=== PATIENT | male | born 1950 ===

== ENCOUNTER 2018-06-15 02:55 | Inpatient (IN) | payer MEDICARE, BC ==
[2018-06-15] VITALS (76 sets, daily range): BP systolic 76–170; BP diastolic 26–97; BMI 26.6; BMI 26.5
[~2018-06-15] VITALS: Ht 177.8 cm; Wt 101.2 kg
[2018-06-15] MEDS ORDERED: LANOXIN125 MCG (04:07)
[2018-06-15] MEDS ORDERED: FLUTICASONE PRO16 GM NASAL (04:09)
[2018-06-15 04:42] LABS: BASOPHILS 0.1 % (0-2); EOSINOPHILS 0 % (0-7); HEMATOCRIT 38.9 % (42.0-54.0); HEMOGLOBIN 12.3 g/dL (13.5-17.5); IMMATURE GRANULOCYTES 0.3 % (0-5); LYMPHOCYTES 4.7 % (15-50); MCH 28.7 pg (26.0-34.0); MCHC 31.6 g/dL (31.0-37.0); MCV 90.7 fL (80.0-100.0); MEAN PLATELET VOLUME 10.9 fL (7.4-10.4); MONOCYTES 8.7 % (2-11); NEUTROPHILS 86.2 % (40-80); PLATELET COUNT 139 10x3/uL (130-400); RBC 4.29 10x6/uL (4.20-6.10); RDW 16.2 % (11.5-14.5); WBC 13.4 10x3/uL (4.8-10.8)
[2018-06-15 05:04] LABS: ALBUMIN 2.5 g/dL (3.4-5.0); ALKALINE PHOSPHATASE 146 U/L (46-116); ALT (SGPT) 46 U/L (10-68); BILIRUBIN - TOTAL 1.47 mg/dL (0.2-1.3); CALC OSMOLALITY 279 mosm/kg (275-300); CALCIUM 8.1 mg/dL (8.5-10.1); CHLORIDE - SERUM 99 mmol/L (98-107); GLUCOSE 100 mg/dL (74-106); POTASSIUM - SERUM 3.6 mmol/L (3.5-5.1); PRO BNP 1158 pg/mL (0-125); SODIUM 140 mmol/L (136-145); UREA NITROGEN 16 mg/dL (7-18); eGFR NON AFRICAN AMERICAN 79 mL/min (90-120)
[2018-06-15 06:54] LABS: T4 THYROXINE 6.3 ug/dL (4.7-13.3); THYROID STIMULATING HORMONE 1.13 uIU/mL (0.36-3.74)
--- NOTE | 2018-06-15 07:00 | NUR ---
SHIFT ASSESSMENT COMPLETED, PT CARE ASSUMED. MONITORS ON AND WORKING, VITALS STABLE. SEE FLOW SHEET FOR FURTHER DETAILS. WILL CONTINUE TO OBSERVE.
--- NOTE | 2018-06-15 09:00 | NUR ---
PT TURNED AND REPOSITIONED. MONITORS ON AND WORKING, VITALS STABLE. FAMILY AT BEDSIDE. UPDATE PROVIDED. NO SIGNS/SYMPTOMS OF PAIN OR DISTRESS NOTED AT THIS TIME, WILL CONTINUE TO OBSERVE.
[2018-06-15 09:31] LABS: % SATURATION 32 % (15-55); IRON 97 ug/dl (35-150); TOTAL IRON BIND CAPACITY 299 ug/dl (260-445); UNSAT IRON BIND CAPACITY 202 ug/dl (150-375)
[2018-06-15 09:38] LABS: APTT 31.9 SECONDS (22.8-39.4); INR 1.23 (0.85-1.17); PROTIME 14.9 SECONDS (11.6-15.0)
[2018-06-15 10:27] LABS: CKMB 2.6 U/L (0.0-3.6); CREATINE KINASE 193 UL (21-232); FERRITIN 45 ng/mL (3-244); MAGNESIUM - SERUM 1.1 mg/dL (1.8-2.4)
[2018-06-15 10:30] LABS: TROPONIN-I 0.228 ng/mL (0.000-0.060)
--- NOTE | 2018-06-15 11:00 | NUR ---
NO CHANGES, SEE FLOW SHEET FOR FURTHER DETAILS.MONITORS ON AND WORKING, WILL CONTINUE TO OBSERVE.
--- NOTE | 2018-06-15 13:00 | NUR ---
PT TURNED AND REPOSITIONED FOR COMFORT, PT WILL AROUSE TO VOISE AND WRITE NOTES, DENIES ANY COMPLAINT OF PAIN OR DISCOMFORT AT THIS TIME. FAMILY AT BEDSIDE, UPDATE PROVIDED. MONITORS ON AND WORKING, VITALS STABLE. WILL CONTINUE TO OBSERVE.
--- NOTE | 2018-06-15 15:00 | NUR ---
NO CHANGES, SEE FLOW SHEET FOR FURTHER DETAILS. MONITORS ON AND WORKING, VITALS STABLE. WILL CONTINUE TO OBSERVE.
[2018-06-15 16:51] LABS: CKMB 2.9 U/L (0.0-3.6); CREATINE KINASE 136 UL (21-232)
[2018-06-15 17:00] LABS: TROPONIN-I 0.275 ng/mL (0.000-0.060)
--- NOTE | 2018-06-15 17:00 | NUR ---
PT TURNED AND REPOSITIONED. VITALS STABLE. MONITORS ON AND WORKING. WILL CONTINUE TO OBSERVE.
--- NOTE | 2018-06-15 19:00 | NUR ---
RECEIVED PATIENT FROM DAY SHIFT RN. PATIENT INTUBATED AND SEDATED ON PROPOFOL DRIP BUT OPENS EYES TO VERBAL COMMAND. INITIAL SHIFT ASSESSMENT COMPLETED, SEE FLOWSHEET. VSS. PATIENT ON LEVOPHED DRIP. WILL MONITOR CLOSELY THROUGH OUT THE NIGHT.
--- NOTE | 2018-06-15 21:00 | NUR ---
PATIENT APPEARS TO BE RESTING COMFORTABLY. NIGHT TIME MEDS GIVEN PER MD ORDERS, SEE MAR. VSS. NO ACUTE CHANGES NOTED. WILL CTM.
[2018-06-15 22:39] LABS: CKMB 1.9 U/L (0.0-3.6); CREATINE KINASE 139 UL (21-232)
[2018-06-15 22:43] LABS: TROPONIN-I 0.196 ng/mL (0.000-0.060)
--- NOTE | 2018-06-15 23:00 | NUR ---
PATIENT RESTLESS AT TIMES, SEDATION INCREASED TO 25MCG/MIN. PATIENT MOUTHS WORDS AROUND THE ETT STATING THAT HE WANTS TO ETT OUT. HE ALSO ASK WHAT TIME IS IT? REASSESSMENT COMPLETED, SEE FLOWSHEET. WILL CTM.
[2018-06-16] VITALS (83 sets, daily range): BP systolic 83–130; BP diastolic 57–82
--- NOTE | 2018-06-16 01:00 | NUR ---
PATIENT APPEARS TO BE RESTING COMFORTABLY. NO ACUTE CHANGES NOTED. WILL CTM.
--- NOTE | 2018-06-16 03:00 | NUR ---
PATIENT AWAKE AND STILL ASKING WHAT TIME IT IS. DRIFTS IN AND OUT OF SLEEP. NO ACUTE CHANGES NOTED. VSS. WILL CTM CLOSELY.
[2018-06-16 04:19] LABS: BASOPHILS 0 % (0-2); EOSINOPHILS 0 % (0-7); HEMATOCRIT 37.6 % (42.0-54.0); HEMOGLOBIN 12.4 g/dL (13.5-17.5); IMMATURE GRANULOCYTES 1.2 % (0-5); LYMPHOCYTES 8.1 % (15-50); MCH 28.8 pg (26.0-34.0); MEAN PLATELET VOLUME 11.3 fL (7.4-10.4); MONOCYTES 11.5 % (2-11); NEUTROPHILS 79.2 % (40-80); RBC 4.31 10x6/uL (4.20-6.10); RDW 16.2 % (11.5-14.5); WBC 14.4 10x3/uL (4.8-10.8)
[2018-06-16 04:34] LABS: INR 1.39 (0.85-1.17); PROTIME 16.5 SECONDS (11.6-15.0)
[2018-06-16 04:43] LABS: ALBUMIN 2.1 g/dL (3.4-5.0); ALKALINE PHOSPHATASE 95 U/L (46-116); AMYLASE - SERUM 29 U/L (25-115); BILIRUBIN - TOTAL 0.91 mg/dL (0.2-1.3); CALCIUM 8.6 mg/dL (8.5-10.1); CARBON DIOXIDE 32.5 mmol/L (21.0-32.0); CHLORIDE - SERUM 103 mmol/L (98-107); CREATININE - SERUM 0.9 mg/dL (0.6-1.3); GLUCOSE 100 mg/dL (74-106); LIPASE 72 U/L (73-393); PHOSPHOROUS 3.2 mg/dL (2.5-4.9); POTASSIUM - SERUM 3.9 mmol/L (3.5-5.1); PRO BNP 860 pg/mL (0-125); PROTEIN - SERUM 6.1 g/dL (6.4-8.2); SODIUM 141 mmol/L (136-145); eGFR NON AFRICAN AMERICAN 89 mL/min (90-120)
[2018-06-16 04:46] LABS: ALT (SGPT) 34 U/L (10-68); CALC OSMOLALITY 284 mosm/kg (275-300); MAGNESIUM - SERUM 1.5 mg/dL (1.8-2.4); UREA NITROGEN 24 mg/dL (7-18)
--- NOTE | 2018-06-16 05:00 | NUR ---
PATIENT APPEARS TO BE RESTING COMFORTABLY. VSS.
[2018-06-16 05:42] LABS: MCV 87.2 fL (80.0-100.0); PLATELET COUNT 97 10x3/uL (130-400)
--- NOTE | 2018-06-16 07:00 | NUR ---
REPORT RECIEVE, SHIFT ASSESSMENT COMPLETE, PT IS SEDATED ON VENT, FOLLOWS COMMANDS, ALL PPP, VSS, WILL CON'T TO MONITOR
[2018-06-16 08:20] LABS: FOLATE (FOLIC ACID) - SERUM >20.0 ng/mL (>3.0)
--- NOTE | 2018-06-16 09:02 | NUR ---
FAMILY AT BEDSIDE, UPDATE GIVEN
[2018-06-16 10:29] LABS: PLATELET ESTIMATE NORMAL
--- NOTE | 2018-06-16 11:15 | NUR ---
REASSESSMENT COMPLETE, NO CHANGES NOTED, WILL CON'T TO MONITOR
--- NOTE | 2018-06-16 13:15 | NUR ---
FAMILY AT BEDSIDE, UPDATE GIVEN
--- NOTE | 2018-06-16 14:45 | MORECARE ---
CASE MANAGEMENT DISCHARGE SUMMARY PATIENT: TEE MEYERS UNIT: [id number] ADM DATE: 06/15/18 AGE: 68 : 51 SEX: M ROOM/BED: D.2307 AUTHOR: TASHA MCCABE PHYSICIAN: REFERRING PHYSICIAN: DUNG MELENDEZ MD DATE OF SERVICE: 06/16/18 Discharge Plan Patient Name: TEE MEYERS [facility] [facility] 1950 Planned Disposition: Home or Self Care Anticipated Discharge Date: Discharge Date: Expected LOS: Initial Reviewer: [email or web address] Initial Review Date: 06/15/2018 Generated: 06/16/18 3:45 pm DCPIA - Discharge Planning Initial Assessment Updated by [email or web address]: Barbara Priest on 06/16/18 2:44 pm * Is the patient Alert and Oriented? Yes * How many steps to enter\exit or inside your home? * PCP Maxim Lozada * Pharmacy [facility] * Preadmission Environment Home with Family * ADLs Independent * Equipment Oxygen * List name and contact numbers for known caregivers / representatives who currently or will assist patient after discharge: Amando Meyers son [phone] * Verbal permission to speak to the caregivers and representatives has been obtained from the patient. N/A * Community resources currently utilized None * Additional services required to return to the preadmission environment? No * Can the patient safely return to the preadmission environment? Yes * Has this patient been hospitalized within the prior 30 days at any hospital? No Patient Name: TEE MEYERS Page [phone] at 1445 All edits/amendments must be made on the electronic document DICTATION DATE: 06/16/18 144 SHOE ASSOCIATE: LAURIE 06/16/18 1444 RPT#: [id number] DC DATE: STATUS: ADM IN [facility] [address] [place] [address] END OF REPORT
--- NOTE | 2018-06-16 14:54 | MORECARE ---
CASE MANAGEMENT DISCHARGE SUMMARY PATIENT: TEE MEYERS UNIT: [id number] ADM DATE: 06/15/18 AGE: 68 : 51 SEX: M ROOM/BED: D.2307 AUTHOR: ESTELLE,DOC PHYSICIAN: REFERRING PHYSICIAN: DUNG MELENDEZ MD DATE OF SERVICE: 06/16/18 Discharge Plan Patient Name: TEE MEYERS Facility: [facility]:[place] : 1950 Planned Disposition: Home or Self Care Anticipated Discharge Date: Discharge Date: Expected LOS: Initial Reviewer: [email or web address] Initial Review Date: 06/15/2018 Generated: 06/16/18 3:54 pm Comments DCP- Discharge Planning Updated by [email or web address]: Barbara Priest on 06/16/18 1:[address] Patient Name: TEE MEYERS Admission Status: Elective Accout number: [id number] Admission Date: 06-15-2018 : 1950 Admission Diagnosis: Attending: DUNG MELENDEZ Current LOS: 1 Anticipated DC Date: Planned Disposition: Home or Self Care Primary Insurance: MEDICARE A & B Discharge Planning Comments: CM met with spouse at bedside patient is currently on ventilator. Kirstin Meyers spouse. Plans to return home with his . Denies any discharge needs at this time. CM will continue to follow and assist as needed with discharge planning / needs. Office Rep: Barbara Priest DCPIA - Discharge Planning Initial Assessment Updated by [email or web address]: Barbara Priest on 06/16/18 2:44 pm * Is the patient Alert and Oriented? Yes * How many steps to enter\exit or inside your home? * PCP Maxim Lozada * Pharmacy [facility] * Preadmission Environment Home with Family * ADLs Independent * Equipment Oxygen * List name and contact numbers for known caregivers / representatives who currently or will assist patient after discharge: Amando lugo [phone] * Verbal permission to speak to the caregivers and representatives has been obtained from the patient. N/A * Community resources currently utilized None * Additional services required to return to the preadmission environment? No * Can the patient safely return to the preadmission environment? Yes * Has this patient been hospitalized within the prior 30 days at any hospital? No Last DP export: 06/16/18 1:45 Patient Name: TEE MEYERS Page 13885 at 1454 All edits/amendments must be made on the electronic document DICTATION DATE: 06/16/181452 SIGN WIRER: LAURIE 06/16/181452 RPT#: [id number] DC DATE: STATUS: ADM IN [facility] [address] [place] [address] END OF REPORT
--- NOTE | 2018-06-16 15:00 | NUR ---
COMPLETE BATH AND LINEN CHANGE, PT TOLERATED WELL
--- NOTE | 2018-06-16 17:25 | NUR ---
FAMILY AT BEDSIDE, UPDATE GIVEN
[2018-06-17] VITALS (23 sets, daily range): BP systolic 87–113; BP diastolic 62–76
[2018-06-17 05:13] LABS: BASOPHILS 0 % (0-2); EOSINOPHILS 0.1 % (0-7); HEMATOCRIT 31.6 % (42.0-54.0); HEMOGLOBIN 10.3 g/dL (13.5-17.5); IMMATURE GRANULOCYTES 0.4 % (0-5); LYMPHOCYTES 8.8 % (15-50); MCH 28.5 pg (26.0-34.0); MCHC 32.6 g/dL (31.0-37.0); MCV 87.3 fL (80.0-100.0); MEAN PLATELET VOLUME 11.5 fL (7.4-10.4); MONOCYTES 8.6 % (2-11); NEUTROPHILS 82.1 % (40-80); PLATELET COUNT 87 10x3/uL (130-400); RBC 3.62 10x6/uL (4.20-6.10); RDW 16.8 % (11.5-14.5)
[2018-06-17 05:21] LABS: WBC 7.9 10x3/uL (4.8-10.8)
[2018-06-17 05:30] LABS: ALBUMIN 1.7 g/dL (3.4-5.0); ALKALINE PHOSPHATASE 82 U/L (46-116); BILIRUBIN - TOTAL 0.94 mg/dL (0.2-1.3); CALC OSMOLALITY 285 mosm/kg (275-300); CALCIUM 8.3 mg/dL (8.5-10.1); CARBON DIOXIDE 28.1 mmol/L (21.0-32.0); CHLORIDE - SERUM 107 mmol/L (98-107); CREATININE - SERUM 0.7 mg/dL (0.6-1.3); GLUCOSE 140 mg/dL (74-106); POTASSIUM - SERUM 3.4 mmol/L (3.5-5.1); PROTEIN - SERUM 5.5 g/dL (6.4-8.2); SODIUM 141 mmol/L (136-145); UREA NITROGEN 20 mg/dL (7-18); eGFR NON AFRICAN AMERICAN > 90 mL/min (90-120)
[2018-06-17 05:31] LABS: ALT (SGPT) 24 U/L (10-68); MAGNESIUM - SERUM 1.9 mg/dL (1.8-2.4); PHOSPHOROUS 1.9 mg/dL (2.5-4.9)
--- NOTE | 2018-06-17 09:00 | NUR ---
REPORT RECEIVED FROM OFF GOING RN. WILL RESUME CARE.
--- NOTE | 2018-06-17 09:09 | NUR ---
NUTRITION F//U FAMILY AT BEDSIDE. PT REMAINS SEDATED ON VENT. PULMOCARE @ 30 CC/HR WITH CURRENT GOAL RATE 40 CC/HR. DIPRIVAN @ 14.4 CC/HR PROVIDING 380 KCAL. PULMOCARE AT GOAL RATE WILL PROVIDE 1440 KCAL, 61 GM PROTEIN PER DAY. TOTAL 1820 KCAL, 61 GM [address] DAY[address] RD FOLLOWING
--- NOTE | 2018-06-17 10:00 | NUR ---
DR MAR AT THE PTS BEDSIDE. DR MAR ADJUSTED THE VENT TO SIMV. PT TOLERATEING WELL.
--- NOTE | 2018-06-17 10:12 | NUR ---
PT DESATING TO 86%. BILATERAL LUNGS WHEEZY. SUCTIONED THE PT WITH THICK BROWN SECREATIONS NOTED. DR MAR IN THE UNIT. DR MAR STATED THAT HE WILL PLAN TO BRONCH THE PT TODAY.
--- NOTE | 2018-06-17 10:34 | NUR ---
OGT ADVANCED ABOUT 6CM PER DR MELENDEZ. ASCULTATED AND ABOUT 10 CC OF RESIDUAL NOTED.
--- NOTE | 2018-06-17 10:45 | NUR ---
BRONCHOSCOPY CONSENT FOR SIGNED BY THE PTS . WITTNESSED BY LUCY HINES RN. CONSENT PLACED IN THE CHART.
--- NOTE | 2018-06-17 14:20 | NUR ---
VANCOMYCIN TROUGH WAS 6.5, DRAWN ON TIME WILL BUMP DOSE UP TO 1 GRAM Q8H.
--- NOTE | 2018-06-17 14:33 | NUR ---
DR MAR AT THE PTS BEDSIDE. BRONCH PREFOMRED PER DR MAR. PT TOLERATED WELL.
--- NOTE | 2018-06-17 18:42 | NUR ---
FULL BED BATH GIVEN. FULL LINEN CHAGE. PT ABLE TO FOLLOW COMMANDS. PT RELEASE FROM HIS RESTRAINTS AND HE WAS ABLE TO DO ROM WITH HIS UPPER EXTRIMITES. PT TOLERATED WELL. VSS. PT RESTRAINED. CALL LIGHT IN REACH. WILL CONT POC.
--- NOTE | 2018-06-17 19:00 | NUR ---
ASSESSMENT COMPLETED PER FLOWSHEET. PT AWAKE AND ALERT TO NAME, FOLLOW COMMANDS. DENIES SOB OR ANY DISCOMFORT AT THIS TIME. SR ON CM WITH HR AT 78, LUNG SOUNDS DIMINISHED TO LLB, UNLABORED ON 3L VIA HIGH FLOW NC. LEFT FA PIV INTACT, CLEAN AND DRY INFUSING IV FLUIDS PER ORDER. MCKEON CATH INTACT TO GRAVITY WITH YELLOW DRAINAGE. ABD INCISION DRESSING C,D,I. PPP. CALL LIGHT IN REACH. CONT TO MONITOR.
[2018-06-18] VITALS (22 sets, daily range): BP systolic 95–118; BP diastolic 60–83
--- NOTE | 2018-06-18 07:00 | NUR ---
SHIFT ASSESSMENT COMPLETED, PT CARE ASSUMED, MONITORS ON AND WORKING. VITALS STABLE. HEART RATE CONTROLLED A FIB, SEE FLOW SHEET FOR FURTHER DETAILS. WILL CONTINUE TO OBSERVE.
[2018-06-18 07:11] LABS: BASOPHILS 0.2 % (0-2); EOSINOPHILS 0.6 % (0-7); HEMATOCRIT 33.9 % (42.0-54.0); HEMOGLOBIN 10.8 g/dL (13.5-17.5); IMMATURE GRANULOCYTES 1.2 % (0-5); LYMPHOCYTES 12.7 % (15-50); MCH 28.3 pg (26.0-34.0); MCHC 31.9 g/dL (31.0-37.0); MCV 88.7 fL (80.0-100.0); MEAN PLATELET VOLUME 10.8 fL (7.4-10.4); MONOCYTES 13.7 % (2-11); NEUTROPHILS 71.6 % (40-80); PLATELET COUNT 88 10x3/uL (130-400); RBC 3.82 10x6/uL (4.20-6.10); RDW 17.2 % (11.5-14.5)
[2018-06-18 07:12] LABS: WBC 5.1 10x3/uL (4.8-10.8)
[2018-06-18 07:27] LABS: ALBUMIN 1.7 g/dL (3.4-5.0); ALKALINE PHOSPHATASE 132 U/L (46-116); BILIRUBIN - TOTAL 1.28 mg/dL (0.2-1.3); CALC OSMOLALITY 285 mosm/kg (275-300); CALCIUM 8.3 mg/dL (8.5-10.1); CHLORIDE - SERUM 108 mmol/L (98-107); GLUCOSE 137 mg/dL (74-106); MAGNESIUM - SERUM 1.9 mg/dL (1.8-2.4); PROTEIN - SERUM 5.8 g/dL (6.4-8.2); SODIUM 142 mmol/L (136-145); UREA NITROGEN 16 mg/dL (7-18)
[2018-06-18 07:30] LABS: ALT (SGPT) 49 U/L (10-68); CREATININE - SERUM 0.5 mg/dL (0.6-1.3); PHOSPHOROUS 2.7 mg/dL (2.5-4.9); eGFR NON AFRICAN AMERICAN > 90 mL/min (90-120)
--- NOTE | 2018-06-18 09:00 | NUR ---
PT TURNED AND REPOSITIONED FOR COMFORT, FAMILY AT BEDSIDE, UPDATE PROVIDED, NO SIGNS/SYMPTOMS OF PAIN OR DISCOMFORT NOTED AT THIS TIME, WILL CONTINUE TO OBSERVE.
--- NOTE | 2018-06-18 10:06 | NUR ---
NUTRITION F/U PT REMAINS SEDATED ON VENT. PULMOCARE AT CURRENT GOAL RATE 40 CC/HR. RD FOLLOWING
--- NOTE | 2018-06-18 11:00 | NUR ---
PT TURNED AND REPOSITIONED FOR COMFORT, NO CHANGES, SEE FLOW SHEET FOR FURTHER DETIALS, WILL CONTINUE TO OBSERVE.
--- NOTE | 2018-06-18 12:32 | NUR ---
RECEIVED REPORT FROM JARRETT ESCOBAR. PATIENT RESTING IN BED C CALL SEDATED ON PROPOFOL. ON VENTILATOR PER PRESCRIBED SETTINGS. VSS. CONTROLLED A-FIB. FAMILY IN ROOM. WILL CONTINUE TO MONITOR.
[2018-06-18 13:15] LABS: FUNGUS STAIN Final report (())
--- NOTE | 2018-06-18 14:18 | NUR ---
BLEEDING FROM MIDLINE SITE. DRESSING SATURATED. NURSE CHANGED DRESSING.
--- NOTE | 2018-06-18 14:53 | NUR ---
CHANGED PROPOFOL TUBING.
--- NOTE | 2018-06-18 15:29 | NUR ---
PATIENT PLACED ON CPAP MODE AT THIS TIME. BREATHING NEARLY 50 TIMES/MINUTE. PROPOFOL AT 30MCG/MIN
--- NOTE | 2018-06-18 15:45 | NUR ---
PATIENT TAKEN OFF CPAP MODE AT THIS TIME. INCREASED PROPOFOL TO 60MCG/KG/HR.
[2018-06-18 16:14] LABS: ACID FAST SMEAR Negative (()); AFB SPECIMEN PROCESSING Concentration (())
--- NOTE | 2018-06-18 17:45 | NUR ---
PATEINT RESTING IN BED C STABLE VITAL SIGNS. SEDATED ON PROPOFOL AT 60MCG. WILL CONTINUE TO MONITOR
[2018-06-19] VITALS (24 sets, daily range): BP systolic 101–158; BP diastolic 66–102
[2018-06-19 02:53] LABS: BASOPHILS 0.7 % (0-2); EOSINOPHILS 1.5 % (0-7); HEMATOCRIT 34.7 % (42.0-54.0); HEMOGLOBIN 10.9 g/dL (13.5-17.5); IMMATURE GRANULOCYTES 3.3 % (0-5); LYMPHOCYTES 17.6 % (15-50); MCH 28.2 pg (26.0-34.0); MCHC 31.4 g/dL (31.0-37.0); MCV 89.7 fL (80.0-100.0); MEAN PLATELET VOLUME 10.7 fL (7.4-10.4); MONOCYTES 22.2 % (2-11); NEUTROPHILS 54.7 % (40-80); PLATELET COUNT 98 10x3/uL (130-400); RBC 3.87 10x6/uL (4.20-6.10); RDW 17.2 % (11.5-14.5); WBC 4.6 10x3/uL (4.8-10.8)
[2018-06-19 02:57] LABS: INR 1.12 (0.85-1.17); PROTIME 13.9 SECONDS (11.6-15.0)
[2018-06-19 02:59] LABS: ALBUMIN 1.7 g/dL (3.4-5.0); ALKALINE PHOSPHATASE 159 U/L (46-116); ALT (SGPT) 65 U/L (10-68); CALC OSMOLALITY 292 mosm/kg (275-300); CALCIUM 8.2 mg/dL (8.5-10.1); CARBON DIOXIDE 27.8 mmol/L (21.0-32.0); CHLORIDE - SERUM 111 mmol/L (98-107); CREATININE - SERUM 0.5 mg/dL (0.6-1.3); GLUCOSE 152 mg/dL (74-106); POTASSIUM - SERUM 4.4 mmol/L (3.5-5.1); PROTEIN - SERUM 5.9 g/dL (6.4-8.2); SODIUM 145 mmol/L (136-145); UREA NITROGEN 14 mg/dL (7-18); VANCOMYCIN - TROUGH 16.8 ug/mL (10.0-20.0); eGFR NON AFRICAN AMERICAN > 90 mL/min (90-120)
--- NOTE | 2018-06-19 07:00 | NUR ---
SHIFT ASSESSMENT COMPLETED. PT CARE ASSUMED. MONITORS ON AND WORKING. VITALS STABLE. PT TURNED AND REPOSITIONED FOR COMFORT. NO SIGNS/SYMPTOMS OF PAIN OR DISCOMFORT NOTED. WILL CONTINUE TO OBSERVE.
--- NOTE | 2018-06-19 09:00 | NUR ---
PT TURNED AND REPOSITIONED FOR COMFORT. FAMILY AT BEDSIDE, UPDATE PROVIDED, MONITORS ON AND WORKING. WILL CONTINUE TO OBSERVE.
--- NOTE | 2018-06-19 11:00 | NUR ---
PT TURNED AND REPOSITIONED, MONITORS ON AND WORKING. SEE FLOW SHEET FOR FURTHER DETIALS, WILL CONTINUE TO OBSERVE.
--- NOTE | 2018-06-19 13:00 | NUR ---
NO CHANGES, FAMILY AT BEDSIDE, UPDATE PROVIDED, NO SIGNS/SYMPTOMS OF PAIN OR DISTRESS NOTED AT THIS TIME. WILL CONTINUE TO OBSERVE.
--- NOTE | 2018-06-19 16:00 | NUR ---
REC'D CARE OF PT. SEDATED ON VENT.
--- NOTE | 2018-06-19 16:54 | NUR ---
TO CT AND BACK FOR CT OF CHEST WITHOUT CONTRAST.
--- NOTE | 2018-06-19 18:21 | NUR ---
RESTING. SEDATED. ON VENT.
[2018-06-20] VITALS (25 sets, daily range): BP systolic 94–138; BP diastolic 43–88
[2018-06-20 03:47] LABS: BASOPHILS 0.6 % (0-2); EOSINOPHILS 1.9 % (0-7); HEMATOCRIT 34.8 % (42.0-54.0); HEMOGLOBIN 10.6 g/dL (13.5-17.5); IMMATURE GRANULOCYTES 7.5 % (0-5); LYMPHOCYTES 13.4 % (15-50); MCH 27.6 pg (26.0-34.0); MCHC 30.5 g/dL (31.0-37.0); MCV 90.6 fL (80.0-100.0); MEAN PLATELET VOLUME 11.5 fL (7.4-10.4); MONOCYTES 15.6 % (2-11); PLATELET COUNT 99 10x3/uL (130-400); RBC 3.84 10x6/uL (4.20-6.10); RDW 17.2 % (11.5-14.5)
[2018-06-20 03:50] LABS: WBC 7.9 10x3/uL (4.8-10.8)
[2018-06-20 04:00] LABS: ALBUMIN 1.5 g/dL (3.4-5.0); ALKALINE PHOSPHATASE 166 U/L (46-116); ALT (SGPT) 70 U/L (10-68); BILIRUBIN - TOTAL 0.55 mg/dL (0.2-1.3); CALC OSMOLALITY 289 mosm/kg (275-300); CALCIUM 8.5 mg/dL (8.5-10.1); CARBON DIOXIDE 29.4 mmol/L (21.0-32.0); CHLORIDE - SERUM 110 mmol/L (98-107); CREATININE - SERUM 0.8 mg/dL (0.6-1.3); GLUCOSE 126 mg/dL (74-106); POTASSIUM - SERUM 4.3 mmol/L (3.5-5.1); PROTEIN - SERUM 5.8 g/dL (6.4-8.2); SODIUM 144 mmol/L (136-145); UREA NITROGEN 16 mg/dL (7-18); eGFR NON AFRICAN AMERICAN > 90 mL/min (90-120)
--- NOTE | 2018-06-20 07:15 | NUR ---
REPORT RECIEVED, SHIFT ASSESSMENT COMPLETE, PT IS SEDATED ON VENT, AROUSES TO VOICE, ABDOMEN IS DISTENDED AND FIRM WITH HYPO BS, ALL PPP, VSS, WILL CON'T TO MONITOR
--- NOTE | 2018-06-20 09:00 | NUR ---
REPOSITIONED FOR COMFORT, WILL CON'T TO MONITOR
--- NOTE | 2018-06-20 11:06 | NUR ---
REASSESSMENT COMPLETE, NO CHANGES NOTED, UPDATE GIVEN TO OVER PHONE, VSS, WILL CON'T TO MONITOR
--- NOTE | 2018-06-20 13:00 | NUR ---
O2 SAT 85% RT INCREASED FIO2 TO 60%, O2 SAT NOW 92%
--- NOTE | 2018-06-20 15:00 | NUR ---
REASSESSMENT COMPLETE, NO CHANGES NOTED, WILL CON'T TO MONITOR
--- NOTE | 2018-06-20 17:00 | NUR ---
REPOSITIONED FOR COMFORT, WILL CON'T TO MONITOR
[2018-06-21] VITALS (23 sets, daily range): BP systolic 84–116; BP diastolic 54–81; Ht 177.8 cm; Wt 101.2 kg
[2018-06-21 04:56] LABS: BASOPHILS 0.4 % (0-2); EOSINOPHILS 1.2 % (0-7); HEMATOCRIT 32.8 % (42.0-54.0); HEMOGLOBIN 9.9 g/dL (13.5-17.5); IMMATURE GRANULOCYTES 7.5 % (0-5); LYMPHOCYTES 12.7 % (15-50); MCH 27.7 pg (26.0-34.0); MCHC 30.2 g/dL (31.0-37.0); MCV 91.6 fL (80.0-100.0); MEAN PLATELET VOLUME 10.9 fL (7.4-10.4); MONOCYTES 12.2 % (2-11); PLATELET COUNT 108 10x3/uL (130-400); RBC 3.58 10x6/uL (4.20-6.10); RDW 17.1 % (11.5-14.5); WBC 8.4 10x3/uL (4.8-10.8)
[2018-06-21 05:25] LABS: ALKALINE PHOSPHATASE 158 U/L (46-116); ALT (SGPT) 58 U/L (10-68); BILIRUBIN - TOTAL 0.69 mg/dL (0.2-1.3); CALC OSMOLALITY 296 mosm/kg (275-300); CALCIUM 8.4 mg/dL (8.5-10.1); CHLORIDE - SERUM 112 mmol/L (98-107); CREATININE - SERUM 0.7 mg/dL (0.6-1.3); GLUCOSE 139 mg/dL (74-106); MAGNESIUM - SERUM 2.4 mg/dL (1.8-2.4); POTASSIUM - SERUM 4.3 mmol/L (3.5-5.1); PROTEIN - SERUM 6.1 g/dL (6.4-8.2); SODIUM 147 mmol/L (136-145); UREA NITROGEN 20 mg/dL (7-18); eGFR NON AFRICAN AMERICAN > 90 mL/min (90-120)
--- NOTE | 2018-06-21 09:38 | NUR ---
Nutrition follow-up: Intubated, sedated with propofol Pulmocare infusing @ goal rate of 40 ml/hr Labs reviewed Wt: 194# RDN following.
--- NOTE | 2018-06-21 17:40 | NUR ---
0900- PT INC OF STOOL. BATHED AND LINENS CHANGED.
--- NOTE | 2018-06-21 17:40 | NUR ---
AIR OVERLAY MATTRESS APPLIED TO BED. PT DEJAH WELL.
--- NOTE | 2018-06-21 19:30 | NUR ---
HAL DOCUMENTED ON AUG. NEW TUBING USED. ALL IV FLUIDS/LINES VERIFIED TO BE CURRENT AND PROPERLY LABELED. ALL CHANGES WILL BE DOCUMENTED
--- NOTE | 2018-06-21 19:30 | NUR ---
REPORT RECEIVED CARE ASSUMED. INITIAL SHIFT ASSESSMENT COMPLETED SEE FLOWSHEET. PT CURRENTLY NOTED TO BE ON MECHANICAL VENTILATION SIMV MODE SETTINS AND CHANGES PER FLOWSHEET. RECEIVING DIPROVAN FOR SEDATION. CURRENTLY ON CARDIZEM AT 10MG/HR SET RATE. PT IS TOTAL CARE FOR ALL ADLS. INCONTINENT OF LARGE LOOSE NONFORMED BROWN STOOL. NOTE PT WITH DEEP TISSUE INJURY TO COCCYX AND BUTTOCKS NOT MEASURED AT THIS TIME. PT IS ON AIR OVERLAY WITH PILLOWS USED FOR SUPPORT, RELIEVE PRESSURE ELEVATE ARMS AND FLOAT HEELS. PT IS RECEIVING PULMOCARE AT 40ML/HR WHICH IS GOAL WITH NO FLUSHES PER PUMP. PLACEMENT VERIFIED PER AIR BOLUS HEARD OVER STOMACH AND RESIDUAL CHECKED AT 10MLS, REPLACED AND FLUSED PER PROTOCOL. PT IS BEING MONITORED PER STANDARD ICU PROTOCOL WITH ALL ALARMS SET, VERIFIED AND AUDIBLE AT NURSES STATION. BED IN LOW POSITION AND PT IS VISIBLE FROM NURSES STATION.
--- NOTE | 2018-06-21 23:00 | NUR ---
SHIFT REASSESSMENT COMPLETED SEE FLOWSHEET. NO SIGNIFICANT CHANGES MADE. PT TOLERATING VENT WELL. HAS HAD SOME THICK CLEAR ORAL SECRETIONS AND SOME THICK YELLOW INLINE SECRETIONS WITH SUCTIONING AND ORAL CARE PERFORMED Q2H AND PRN.
--- NOTE | 2018-06-21 23:45 | NUR ---
NEW BAG OF TUBE FEEDING HUNG DATED AND LABELED
[2018-06-22] VITALS (24 sets, daily range): BP systolic 101–138; BP diastolic 64–84
--- NOTE | 2018-06-22 01:00 | NUR ---
PT CONTINUES TO BE MONITORED PER STANDARD ICU PROTOCOL VSS
--- NOTE | 2018-06-22 03:00 | NUR ---
SHIFT REASSESSMENT COMPLETED SEE FLOWSHEET NO SIGNIFICANT CHANGES NOTED
[2018-06-22 04:15] LABS: BASOPHILS 0.5 % (0-2); EOSINOPHILS 2.8 % (0-7); HEMATOCRIT 31.6 % (42.0-54.0); HEMOGLOBIN 9.5 g/dL (13.5-17.5); LYMPHOCYTES 16.2 % (15-50); MCH 27.6 pg (26.0-34.0); MCHC 30.1 g/dL (31.0-37.0); MCV 91.9 fL (80.0-100.0); MEAN PLATELET VOLUME 11.1 fL (7.4-10.4); MONOCYTES 11.9 % (2-11); NEUTROPHILS 59.6 % (40-80); PLATELET COUNT 117 10x3/uL (130-400); RBC 3.44 10x6/uL (4.20-6.10); RDW 17.6 % (11.5-14.5)
--- NOTE | 2018-06-22 04:30 | NUR ---
I&O COMPLETED AND CHARTED
[2018-06-22 04:38] LABS: ALBUMIN 2.3 g/dL (3.4-5.0); ALKALINE PHOSPHATASE 162 U/L (46-116); ALT (SGPT) 51 U/L (10-68); BILIRUBIN - TOTAL 0.61 mg/dL (0.2-1.3); CALC OSMOLALITY 302 mosm/kg (275-300); CALCIUM 8.8 mg/dL (8.5-10.1); CHLORIDE - SERUM 115 mmol/L (98-107); CREATININE - SERUM 0.6 mg/dL (0.6-1.3); GLUCOSE 121 mg/dL (74-106); MAGNESIUM - SERUM 2.4 mg/dL (1.8-2.4); POTASSIUM - SERUM 4.3 mmol/L (3.5-5.1); PROTEIN - SERUM 6.3 g/dL (6.4-8.2); SODIUM 150 mmol/L (136-145); UREA NITROGEN 25 mg/dL (7-18); eGFR NON AFRICAN AMERICAN > 90 mL/min (90-120)
--- NOTE | 2018-06-22 07:30 | NUR ---
SEDATED ON VENT BILATERAL LUNGS SOUNDS EQUAL. ETT SECURE. OG CHECKED FOR PLACEMENT PER AIR BOLOUS DOWN ETT. INFUSING WITH PULMOCARE AT 40 ML HOUR. MCKEON CATH PATENT. RIJ TRILYSIS INFUSING WITH CARDIZEM AT 10N MG HOUR. DIPRIVAN AT 46 MCG/KG/MIN, D5NS AT 75 ML HOUR. DRESSING SECURE. PURPLE BRUISING LIKE NOTED ON COCCYX BUTTOCK AREA. MONITOR ATRIAL FIB VERY IRREGULAR. WEANING OXYGEN ON VENT PER R.T.
--- NOTE | 2018-06-22 09:30 | NUR ---
REPOSITIONED. TOLERATES WELL. SEDATION OFF A FEW MINUTES RESP RATE INCREASED INTO UPPER 20'S, PULSE OX DROPPED BELOW 90, COUGHING AGAIN VENT. NO SECRETIONS WHEN SUCTIONED. SEDATED INCREASED BACK TO 45 MCG/KG/MIN.
--- NOTE | 2018-06-22 11:30 | NUR ---
REPOSITIONED. SUCTINED. NO DISTRESS.
--- NOTE | 2018-06-22 13:30 | NUR ---
REPOSITIONED. RESTING COMFORTABLY ON DIPIRVAN. MONITOR CONTINUES IN ATRIAL FIB. D5NS TURNED DOWN TO 10 ML HOUR DIPIRIVAN AT 45 MCG/KG/MIN. DR. RUIZ HERE NEW ORDERS RECEIVED
--- NOTE | 2018-06-22 15:30 | NUR ---
REPOSITIONED. RESTING COMFORTABLY ON DIPIRVAN. FAMILY HAVE CALLED AND UPDATE GIVEN. OG INFUSING WITH PULMOCARE AT 40 ML HOUR NO RESIDUAL HOUR. RIGHT UPPER ARM MIDLINE INFUSING WITH DIPIRVAN AT 45 MCG/KG/MIN. D5NS AT 10 ML HOUR, CARDIZEM GTT AT 10 MG HOUR. MCKEON CATH PATENT WITH GOOD URINE OUTPUT THIS SHIFT. SUCTION ETT WITH MOD AMOUNT THICK RAMOS SECRETIONS RARELY. MONITOR ATRIAL FIB VERY IRREGULAR. AIR OVERLAY ON BED.
--- NOTE | 2018-06-22 17:30 | NUR ---
REPOSITIONED. NO DISTRESS. NO CHANGES IN GTTS
--- NOTE | 2018-06-22 18:51 | NUR ---
NO CHANGES RESTING COMFORTABLY.
[2018-06-23] VITALS (24 sets, daily range): BP systolic 98–133; BP diastolic 63–97
[2018-06-23 03:59] LABS: BASOPHILS 0.5 % (0-2); EOSINOPHILS 2.2 % (0-7); HEMATOCRIT 32.5 % (42.0-54.0); HEMOGLOBIN 9.9 g/dL (13.5-17.5); IMMATURE GRANULOCYTES 6.2 % (0-5); LYMPHOCYTES 14.7 % (15-50); MCHC 30.5 g/dL (31.0-37.0); MCV 91.8 fL (80.0-100.0); MEAN PLATELET VOLUME 11.5 fL (7.4-10.4); NEUTROPHILS 62.4 % (40-80); PLATELET COUNT 132 10x3/uL (130-400); RBC 3.54 10x6/uL (4.20-6.10); RDW 17.4 % (11.5-14.5); WBC 6.3 10x3/uL (4.8-10.8)
[2018-06-23 04:29] LABS: ALBUMIN 2.2 g/dL (3.4-5.0); ALKALINE PHOSPHATASE 184 U/L (46-116); ALT (SGPT) 62 U/L (10-68); BILIRUBIN - TOTAL 0.72 mg/dL (0.2-1.3); CALC OSMOLALITY 301 mosm/kg (275-300); CALCIUM 8.7 mg/dL (8.5-10.1); CARBON DIOXIDE 32.3 mmol/L (21.0-32.0); CHLORIDE - SERUM 114 mmol/L (98-107); CREATININE - SERUM 0.6 mg/dL (0.6-1.3); GLUCOSE 115 mg/dL (74-106); MAGNESIUM - SERUM 2.4 mg/dL (1.8-2.4); POTASSIUM - SERUM 4.5 mmol/L (3.5-5.1); PROTEIN - SERUM 6.2 g/dL (6.4-8.2); SODIUM 149 mmol/L (136-145); UREA NITROGEN 26 mg/dL (7-18); eGFR NON AFRICAN AMERICAN > 90 mL/min (90-120)
--- NOTE | 2018-06-23 07:00 | NUR ---
BEDSIDE SHIFT REPORT RECEIVED AT THIS TIME. PT RESTING COMFORTABLY IN BED. SHIFT ASSESSMENT COMPLETE PER FLOWSHEET. VSS, WILL MONITOR CLOSELY.
--- NOTE | 2018-06-23 08:30 | NUR ---
PATIENT FAMILY PRESENT AT THE BEDSIDE. UPDATE GIVEN. VSS, WILL CONTINUE CLOSE ICU MONITORING.
--- NOTE | 2018-06-23 10:00 | NUR ---
PATIENT TURNED AND REPOSITIONED AT THIS TIME. ORAL CARE PROVIDED.
--- NOTE | 2018-06-23 11:00 | NUR ---
REASSESSMENT COMPLETE AT THIS TIME. NO ACUTE CHANGES AT THIS TIME.
--- NOTE | 2018-06-23 11:13 | NUR ---
Nutrition follow-up: NPO OGT with Pulmocare @ 40 ml/hr Labs reivewed +BM Tolerated TF at this time RDN following.
--- NOTE | 2018-06-23 12:24 | NUR ---
PATIENT RESTING COMFORTABLY AT THIS TIME. NO PAIN OR S/S OF DISTRESS NOTED. PER DR RUIZ, IV FLUID CHANGED TO D5W AND PIGGYBACKS CHANGED WELL. TUBE FEED FLUSH WAS CHANGED TO 100 CC Q2H. VSS, WILL CONTINUE TO MONITOR CLOSELY.
--- NOTE | 2018-06-23 15:00 | NUR ---
REASSESSMENT COMPLETE PER FLOWSHEET. NO ACUTE CHANGES NOTED AT THIS TIME. VSS, WILL CONTINUE TO MONITOR CLOSELY.
--- NOTE | 2018-06-23 17:15 | NUR ---
PT MIDLINE DRESSING CHANGED AT THIS TIME PER HOSPITAL POLICY. PT VSS, WILL CONTINUE TO MONITOR CLOSELY.
--- NOTE | 2018-06-23 18:00 | NUR ---
PROPOFOL BOTTLE AND TUBING CHANGED PER HOSPITAL POLICY AT THIS TIME. NO ACUTE CHANGES NOTED. VSS, WILL CONTINUE TO MONITOR CLOSELY.
[2018-06-24] VITALS (22 sets, daily range): BP systolic 110–169; BP diastolic 69–98
[2018-06-24 04:02] LABS: BASOPHILS 0.3 % (0-2); EOSINOPHILS 1.3 % (0-7); HEMOGLOBIN 10.8 g/dL (13.5-17.5); IMMATURE GRANULOCYTES 4.6 % (0-5); LYMPHOCYTES 15.6 % (15-50); MCH 28.7 pg (26.0-34.0); MCHC 31.8 g/dL (31.0-37.0); MCV 90.4 fL (80.0-100.0); MEAN PLATELET VOLUME 10.2 fL (7.4-10.4); MONOCYTES 11.7 % (2-11); NEUTROPHILS 66.5 % (40-80); PLATELET COUNT 135 10x3/uL (130-400); RBC 3.76 10x6/uL (4.20-6.10); RDW 17.4 % (11.5-14.5); WBC 6.9 10x3/uL (4.8-10.8)
[2018-06-24 04:18] LABS: ALBUMIN 2.5 g/dL (3.4-5.0); ALKALINE PHOSPHATASE 197 U/L (46-116); ALT (SGPT) 61 U/L (10-68); BILIRUBIN - TOTAL 0.86 mg/dL (0.2-1.3); CALC OSMOLALITY 292 mosm/kg (275-300); CALCIUM 8.7 mg/dL (8.5-10.1); CARBON DIOXIDE 29.9 mmol/L (21.0-32.0); CHLORIDE - SERUM 107 mmol/L (98-107); CREATININE - SERUM 0.6 mg/dL (0.6-1.3); GLUCOSE 118 mg/dL (74-106); MAGNESIUM - SERUM 2.4 mg/dL (1.8-2.4); POTASSIUM - SERUM 4.6 mmol/L (3.5-5.1); PROTEIN - SERUM 6.7 g/dL (6.4-8.2); SODIUM 143 mmol/L (136-145); UREA NITROGEN 31 mg/dL (7-18); eGFR NON AFRICAN AMERICAN > 90 mL/min (90-120)
--- NOTE | 2018-06-24 07:00 | NUR ---
BEDSIDE SHIFT REPORT RECEIVED AT THIS TIME. SHIFT ASSESSMENT COMPLETE PER FLOWSHEET. PT RESTING COMFORTABLY AT THIS TIME. VSS, WILL MONITOR CLOSELY.
--- NOTE | 2018-06-24 09:00 | NUR ---
PATIENT TURNED AND REPOSITIONED AT THIS TIME. PATIENT TOLERATED WELL. PT OPENS EYES NOW. DOES NOT FOLLOW COMMANDS BUT IT STILL ON PROPOFOL. PT FAMILY PRESENT AT THE BEDSIDE. UPDATE GIVEN. VSS, WILL CONTINUE TO MONITOR CLOSELY.
--- NOTE | 2018-06-24 10:30 | NUR ---
PATIENT HAD LARGE, INCONTINENT STOOL AT THIS TIME. PT CLEANED, FULL LINEN CHANGE DONE, AND PATIENT TURNED FOR COMFORT. SEDATION VACATION PERFORMED AND PATIENT WAS ABLE TO OPEN EYES AND SQUEEZED HANDS. PATIENT NOW BACK ON SEDATION. VSS, WILL MONITOR CLOSELY.
--- NOTE | 2018-06-24 11:00 | NUR ---
REASSESSMENT COMPLETE PER FLOWSHEET. NO ACUTE CHANGES NOTED AT THIS TIME. VSS, WILL CONTINUE TO MONITOR CLOSELY.
--- NOTE | 2018-06-24 12:45 | NUR ---
PATIENT FAMILY PRESENT AT THE BEDSIDE. UPDATE GIVEN. VSS, WILL CONTINUE TO MONITOR CLOSELY.
[2018-06-24 14:12] LABS: FUNGUS CULTURE RESULT 1 Candida tropicalis (())
--- NOTE | 2018-06-24 14:56 | CN ---
PATIENT NAME:TEE CAST MEDICAL RECORD: [id number] : 52 LOCATION:COMPAD.[id number] ADMIT DATE: 06/15/18 ACCOUNT: [id number] CONSULTING PHYSICIAN: SANDRA CORNELIUS MD REFERRING PHYSICIAN: DUNG MELENDEZ MD DATE OF CONSULTATION: 06/15/2018 CARDIOLOGY CONSULTATION DIAGNOSES: 1. Status post cardiopulmonary arrest. 2. Atrial fibrillation. 3. Pneumonia. 4. COPD. 5. Smoking history. 6. ETOH abuse. HISTORY OF PRESENT ILLNESS: This is a gentleman who was at an [facility] hospital and appears that he presented with COPD exacerbation and shortness of breath. He has a history of atrial fibrillation, he was in atrial fibrillation. He then went into respiratory distress. He had bradycardia, asystole. He had approximately 1-1/2 minutes of CPR. He resolved this with atrial fibrillation initially in the 150s to 160s. When he arrived here, he was still in atrial fibrillation in the 150s, now he is in atrial fibrillation in the 70s with rate control. He is not on any cardiac medications. His initial troponin is normal. PHYSICAL EXAMINATION: GENERAL APPEARANCE: Well-nourished, well-developed, appears stated age. Level of distress, comfortable. PSYCHIATRIC: Mental status, alert, normal affect. Orientation, oriented to time, place and person. EYES: Lids and conjunctiva, noninjected. No discharge, no pallor. ENT: Lips, teeth, gums, normal dentition. Oropharynx, no cyanosis, no pallor. NECK: Carotid arteries, bilateral normal upstroke, no bruits, no thrills. JUGULAR VEINS: No jugular venous pressure or distention. CERVICAL LYMPH NODES: Nontender, nonenlarged. THYROID: Not enlarged. Nontender. No nodules. LUNGS: Respiratory effort, unlabored. CHEST: Normal curvature. No thoracic deformity. No chest wall tenderness. Percussion, resonant. Auscultation, clear. No wheezes, no rales, no rhonchi. CARDIOVASCULAR: Precordial exam, nondisplaced. No heaves or pericardial thrills. Rate and rhythm, regular. Heart sounds, normal S1, normal S2. No S3, no gallop, no rub. Systolic murmur, not heard. Diastolic murmur, not heard. EXTREMITIES: No cyanosis, no edema. Peripheral pulses, full and equal in all extremities, except as noted. No bruits appreciated. ABDOMEN: Soft, nondistended. Normal aorta. No bruit. Nontender. No masses. Liver, nontender, no hepatomegaly. Spleen, nontender, no splenomegaly. MUSCULOSKELETAL: No joint tenderness. No joint swelling. No erythema. NEUROLOGICAL: Normal gait, normal strength, normal tone. SKIN: Warm and dry. OVERALL IMPRESSION: Most likely this is primary pulmonary arrest leading to hypoxemia and then bradycardia. At this time, the atrial fibrillation does appear to be stable. We will get an echocardiogram for overall ejection fraction and get serial troponins as well as a repeat 12-lead ECG to see if CONSULT REPORT [id number] TEE CAST there are any ST-T changes. Otherwise, supportive care for the respiratory failure and pneumonia. TRANSINT:[id number] Voice Confirmation ID: [id number] DOCUMENT ID: [id number] SANDRA CORNELIUS MD at 1456 CC: [id number] DICTATION DATE: 06/15/18921 CYTOLOGY LABORATORY MANAGER: 06/15/18 1330 ADM IN [place] [id number] [place] [address]
--- NOTE | 2018-06-24 14:56 | EC ---
PATIENT:TEE CAST DATE OF SERVICE: 06/15/18 SEX: M MEDICAL RECORD: [id number] DATE OF : [birth year] LOCATION:[facility] D.230 AGE OF PATIENT: 68 ADMISSION DATE: 06/15/18 REFERRING PHYSICIAN: INTERPRETING PHYSICIAN: SANDRA BERRY MD ECHOCARDIOGRAM REPORT ECHO CHARGES 5 ECHO LIMITED Date: 06/15/18 CLINICAL DIAGNOSIS: CARDIA ARREST/ AFIB WITH RVR/CHF ECHOCARDIOGRAPHIC MEASUREMENTS (adult normal given) AC root (d.<3.7cm) cm LV Septum d (<1.2 cm> cm Valve Excursion cm LV Septum (systole) cm Left Atria (s.<4.0cm> 6.4 cm LVPW d(<1.2cm) cm RV (d.<2.3cm) 4.7 cm LVPW (sytole) cm LV diastole(<5.6CM) 5.2 cm MV E-F(>70mm/sec) cm LV systole 3.7 cm LVOT Diameter cm MV exc.(>10mm) cm Est.ejection fraction (50-75%) % DOPPLER: LVIT cm/sec A cm/sec E cm/sec LA cm/sec RVSP 25 mmHg LVOT cm/sec AOP1/2T m/s Asc. Ao cm/sec RVOT cm/sec RA cm/sec PA cm/sec AV Gradient Peak mmHg AV Mean mmHg AV Area cm MV Gradient Peak mmHg MV Mean mmHg MV Area cm COMMENTS: Sales Advisory Manager: Clint MEDINA All Round Logger: Gwendolyn Berry TAPE# Pericardial Effusion N DATE OF SERVICE: 06/15/2018 PROCEDURE: Echocardiogram. FINDINGS: 1. Left ventricular chamber size is within normal limits. Left ventricular systolic function is normal. Overall ejection fraction estimated at 55% to 60%. 2. Left atrium is enlarged at 6 cm. Right atrium and right ventricular chamber sizes are as well mildly dilated. 3. Valvular structures have normal structure and motion. ECHOCARDIOGRAM REPORT [id number] TEE CAST 4. Doppler interrogation only reveals mild tricuspid regurgitation, no other valvular insufficiency or stenosis. Pulmonary systolic pressure is normal estimated at 25 mmHg. 5. No evidence of pericardial effusion or left ventricular thrombus. TRANSINT:[id number] Voice Confirmation ID: [id number] DOCUMENT ID: [id number] SANDRA BERRY MD at 1456 CC: [id number] DICTATION DATE: 06/16/18 0831 ZIGZAG APPLIQUER: 06/16/18 1130 ADM IN [place] [id number] [place] [address]
--- NOTE | 2018-06-24 15:00 | NUR ---
REASSESSMENT COMPLETE PER FLOWSHEET. NO ACUTE CHANGES NOTED AT THIS TIME. VSS, WILL CONTINUE TO MONITOR CLOSELY.
--- NOTE | 2018-06-24 17:00 | NUR ---
PATIENT HAD LARGE, INCONTINENT BOWEL MOVEMENT AT THIS TIME. PATIENT CLEANED AND LINEN CHANGE PERFORMED. PT TOLERATED WELL. VSS, WILL CONTINUE TO MONITOR CLOSELY.
[2018-06-25] VITALS (22 sets, daily range): BP systolic 99–142; BP diastolic 62–96
[2018-06-25 03:02] LABS: BASOPHILS 0.5 % (0-2); EOSINOPHILS 1.4 % (0-7); HEMATOCRIT 33.8 % (42.0-54.0); HEMOGLOBIN 10.5 g/dL (13.5-17.5); IMMATURE GRANULOCYTES 1.8 % (0-5); LYMPHOCYTES 15.6 % (15-50); MCH 27.9 pg (26.0-34.0); MCHC 31.1 g/dL (31.0-37.0); MCV 89.9 fL (80.0-100.0); MEAN PLATELET VOLUME 11.4 fL (7.4-10.4); MONOCYTES 13.1 % (2-11); NEUTROPHILS 67.6 % (40-80); PLATELET COUNT 149 10x3/uL (130-400); RBC 3.76 10x6/uL (4.20-6.10); RDW 17.4 % (11.5-14.5); WBC 7.4 10x3/uL (4.8-10.8)
[2018-06-25 03:11] LABS: ALBUMIN 2.2 g/dL (3.4-5.0); ALKALINE PHOSPHATASE 215 U/L (46-116); ALT (SGPT) 65 U/L (10-68); BILIRUBIN - TOTAL 0.89 mg/dL (0.2-1.3); CALC OSMOLALITY 300 mosm/kg (275-300); CALCIUM 8.8 mg/dL (8.5-10.1); CARBON DIOXIDE 32.1 mmol/L (21.0-32.0); CHLORIDE - SERUM 109 mmol/L (98-107); CREATININE - SERUM 0.6 mg/dL (0.6-1.3); GLUCOSE 117 mg/dL (74-106); MAGNESIUM - SERUM 2.3 mg/dL (1.8-2.4); POTASSIUM - SERUM 4.4 mmol/L (3.5-5.1); PROTEIN - SERUM 6.6 g/dL (6.4-8.2); SODIUM 147 mmol/L (136-145); UREA NITROGEN 34 mg/dL (7-18); eGFR NON AFRICAN AMERICAN > 90 mL/min (90-120)
--- NOTE | 2018-06-25 07:00 | NUR ---
BEDSIDE SHIFT REPORT RECEIVED AT THIS TIME. PATIENT RESTING COMFORTABLY. SHIFT ASSESSMENT COMPLETE PER FLOWSHEET. VSS, WILL MONITOR CLOSELY.
--- NOTE | 2018-06-25 07:59 | NUR ---
PT HAD LARGE, INCONTINENT, LIQUID BOWEL MOVEMENT AT THIS TIME. PATIENT CLEANED, A FULL LINEN CHANGE WAS DONE, AND PATIENT TURNED FOR COMFORT AT THIS TIME. PATIENT TOLERATED WELL. VSS, WILL CONTINUE TO MONITOR CLOSELY.
--- NOTE | 2018-06-25 08:45 | NUR ---
PATIENT FAMILY PRESENT AT THE BEDSIDE. UPDATE GIVEN AND ALL QUESTIONS ANSWERED. FAMILY DENIES ANY NEEDS AT THIS TIME. PT VSS, WILL CONTINUE TO MONIOTR CLOSELY.
--- NOTE | 2018-06-25 09:57 | NUR ---
Nutrition follow-up: Pt remains intubated, sedated Propofol @ 8.6 ml/hr Pulmocare infusing @ 40 ml/hr Wt: 229# Labs reviewed Pt not meeting estimated energy needs with current TF regimen. RDN will increase TF to goal rate of 60 ml/hr to better meet estimated energy needs. RDN following.
--- NOTE | 2018-06-25 11:00 | NUR ---
REASSESSMENT COMPLETE PER FLOWSHEET. NO ACUTE CHANGES NOTED AT THIS TIME. VSS, WILL CONTINUE TO MONITOR CLOSELY.
--- NOTE | 2018-06-25 12:00 | NUR ---
PT TURNED AND REPOSITIONED FOR COMFORT AT THIS TIME. ORAL CARE PROVIDED. VSS, WILL CONTINUE TO MONITOR CLOSELY.
--- NOTE | 2018-06-25 13:00 | NUR ---
SEDATION VACATION PERFORMED AT THIS TIME. PT WAS ABLE TO BLINK WITH PURPOSE AND FOLLOW WITH HIS EYES. PATIENT BACK ON SEDATION. FAMILY PRESENT AT THE BEDSIDE. VSS, WILL CONTINUE TO MONITOR CLOSELY.
--- NOTE | 2018-06-25 15:00 | NUR ---
REASSESSMENT COMPLETE PER FLOWSHEET. NO ACUTE CHANGES NOTED. VSS, WILL CONTINUE TO MONITOR CLOSELY.
--- NOTE | 2018-06-25 15:23 | NUR ---
PT TUBE FEEDING BAG AND TUBING CHANGED AT THIS TIME. BAG LABELED AND HAS CURRENT DATE/TIME.
--- NOTE | 2018-06-25 16:14 | NUR ---
COMPLETE BEDBATH AND LINEN CHANGE DONE AT THIS TIME. PT HAD LARGE INCONTINENT BOWEL MOVEMENT. PT CLEANED, TURNED, AND REPOSITIONED. MEPILEX DRESSING ON BOTTOM CHANGED. VSS, WILL CONTINUE TO MONITOR CLOSELY.
--- NOTE | 2018-06-25 19:30 | NUR ---
ASSESSMENT COMPLETE, PER NURSING FLOWSHEET, ORAL CARE COMPLETE, PATIENT REPOSITIONED, CONTIUE POC
--- NOTE | 2018-06-25 21:00 | NUR ---
COMPLETE LINEN CHANGE FOR INCONTINENT EPISODE, NATHANAEL CARE PERFORMED, PATIENT REPOSITIONED, WILL CONTINUE TO MONITOR
--- NOTE | 2018-06-25 23:00 | NUR ---
RE-ASSESSMENT COMPLETE, ORAL CARE PERFORMED, PATIENT REPOSITIONED, PATIENT BUE SOFT WRIST RESTRAINTS REMOVED, ROM PERFORMED, CONTINUE POC
[2018-06-26] VITALS (34 sets, daily range): BP systolic 106–151; BP diastolic 67–98
--- NOTE | 2018-06-26 01:00 | NUR ---
COMPLETE LINEN CHANGE FOR INCONTINENT BOWEL EPISODE, MCKEON CARE PERFORMED, PATIENT REPOSITIONED, NO OTHER NEEDS NOTED AT THIS TIME
--- NOTE | 2018-06-26 03:00 | NUR ---
RE-ASSESSMENT COMPLETE, ORAL CARE PROVIDED, PATIENT REPOSITIONED, VSS, WILL CONTINUE TO MONITOR
[2018-06-26 04:10] LABS: BASOPHILS 0.6 % (0-2); EOSINOPHILS 1.4 % (0-7); HEMATOCRIT 33.9 % (42.0-54.0); HEMOGLOBIN 10.4 g/dL (13.5-17.5); IMMATURE GRANULOCYTES 0.9 % (0-5); LYMPHOCYTES 12.2 % (15-50); MCHC 30.7 g/dL (31.0-37.0); MCV 91.1 fL (80.0-100.0); MEAN PLATELET VOLUME 11.1 fL (7.4-10.4); MONOCYTES 12.7 % (2-11); NEUTROPHILS 72.2 % (40-80); PLATELET COUNT 151 10x3/uL (130-400); RBC 3.72 10x6/uL (4.20-6.10); RDW 17.4 % (11.5-14.5); WBC 8.8 10x3/uL (4.8-10.8)
[2018-06-26 04:24] LABS: ALBUMIN 2.3 g/dL (3.4-5.0); ALKALINE PHOSPHATASE 218 U/L (46-116); ALT (SGPT) 65 U/L (10-68); BILIRUBIN - TOTAL 1.02 mg/dL (0.2-1.3); CALC OSMOLALITY 292 mosm/kg (275-300); CALCIUM 8.7 mg/dL (8.5-10.1); CARBON DIOXIDE 33.5 mmol/L (21.0-32.0); CHLORIDE - SERUM 106 mmol/L (98-107); CREATININE - SERUM 0.6 mg/dL (0.6-1.3); GLUCOSE 127 mg/dL (74-106); MAGNESIUM - SERUM 2.2 mg/dL (1.8-2.4); POTASSIUM - SERUM 4.3 mmol/L (3.5-5.1); PROTEIN - SERUM 6.4 g/dL (6.4-8.2); SODIUM 142 mmol/L (136-145); UREA NITROGEN 34 mg/dL (7-18); eGFR NON AFRICAN AMERICAN > 90 mL/min (90-120)
--- NOTE | 2018-06-26 05:00 | NUR ---
PATIENT REPOSITIONED, ORAL CARE PROVIDED, WELL ORAL AND INLINE SUCTION, CONTINUE POC
--- NOTE | 2018-06-26 07:00 | NUR ---
IV DRIPS CARDIZEM AND PROPOFOL VIA RIGHT AC MIDLINE DRESSING SOILED DRESSING CHANGED TO MIDLINE IV CATH WITH STERILE TECHNIQUE REPORT RECEIVED PT SLIGHTLY SEDATED WITH DIPRIVAN OPENS EYES SPONTANEOUSLY, DOES NOT FOLLOW COMMANDS CHITRA. PT INCONTINENT OF STOOL PARTIAL BED BATH GIVEN LARGE LIQUID BROWN STOOL. SQUARE CUTTER READING AFIB/FLUTTER PT ON CARDIZEM GTT. GENERALIZED EDEMA ARMS ELEVATED HEELS ELEVATED WITH PILLOWS.
--- NOTE | 2018-06-26 12:30 | NUR ---
FAMILY AT BEDSIDE UPDATE GIVEN AND QUESTIONS ANSWERED PT WINKS AT FAMILY [employer]MB[employer] NO CHANGE IN DRIPS
--- NOTE | 2018-06-26 15:30 | NUR ---
LARGE LIQUID BROWN STOOL COMPLETE BED BATH GIVEN. HAIR WASHED AND COMBED. OGT RESIDUAL CHECKED MINIMAL 10 CC TUBE FEEDING CONTINUES AT 55 CC HOUR WITH 100 CC HOUR FLUSH Q3 H
--- NOTE | 2018-06-26 18:00 | NUR ---
PT SATS TRENDING DOWN TO 90-91 HAVE BEEN 93-94 SUCTIONED SMALL AMOUNT THICK WHITE SECRETIONS OS SAT 93. VSS
--- NOTE | 2018-06-26 19:30 | NUR ---
ASSESSMENT COMPLETE, PER NURSING FLOWSHEET, PATEINT REPOSITIONED, ORAL CARE PROVIDED. VSS
--- NOTE | 2018-06-26 21:00 | NUR ---
COMPLETE LINEN CHANGE FOR INCONTINENT EPISODE, PATIENT REPOSITIONED, CONTINUE POC
--- NOTE | 2018-06-26 23:00 | NUR ---
PATIENT REPOSITIONED, ORAL CARE PROVIDED, NO OTHER NEEDS NOTED AT THIS TIME
[2018-06-27] VITALS (23 sets, daily range): BP systolic 97–139; BP diastolic 66–97
--- NOTE | 2018-06-27 01:00 | NUR ---
PATIENT REPOSITONED, MCKEON CARE PROVIDED, VSS
--- NOTE | 2018-06-27 03:00 | NUR ---
RE-ASSESSMENT COMPLETE, PATIENT REPOSITIONED, ORAL CARE PROVIDED, VSS
[2018-06-27 04:49] LABS: BASOPHILS 0.4 % (0-2); EOSINOPHILS 1.3 % (0-7); HEMOGLOBIN 10.3 g/dL (13.5-17.5); IMMATURE GRANULOCYTES 0.6 % (0-5); LYMPHOCYTES 10.9 % (15-50); MCH 28.4 pg (26.0-34.0); MCHC 31.2 g/dL (31.0-37.0); MCV 90.9 fL (80.0-100.0); NEUTROPHILS 68.8 % (40-80); PLATELET COUNT 159 10x3/uL (130-400); RBC 3.63 10x6/uL (4.20-6.10); RDW 17.5 % (11.5-14.5); WBC 7.8 10x3/uL (4.8-10.8)
[2018-06-27 04:51] LABS: CALC OSMOLALITY 289 mosm/kg (275-300); CALCIUM 8.6 mg/dL (8.5-10.1); CARBON DIOXIDE 33.6 mmol/L (21.0-32.0); CHLORIDE - SERUM 102 mmol/L (98-107); CREATININE - SERUM 0.6 mg/dL (0.6-1.3); GLUCOSE 136 mg/dL (74-106); SODIUM 141 mmol/L (136-145); UREA NITROGEN 31 mg/dL (7-18); eGFR NON AFRICAN AMERICAN > 90 mL/min (90-120)
--- NOTE | 2018-06-27 05:00 | NUR ---
COMPLETE LINEN CHANGE FOR INCONTINENT EPISODE, UNABLE TO PLACE CLEAN SHEETS SECONDARY TO CONTINUOUS OUTFLOW OF FECES. BOWEL MANAGEMENT SYSTEM PLACED. PATIENT ALSO HAS EXCORIATED SCROTUM/NATHANAEL AREA SECONDARY TO INCONTINENCE AND PRESSURE ULCER ON COCCYX/BUTTOCKS THAT BMS WILL AID IN KEEPING C/D/ SACRAL MEPILEX APPLIED TO COCCYX AND BARRIER CREAM TO NATHANAEL AREA
--- NOTE | 2018-06-27 07:00 | NUR ---
ASSESSMENT COMPLETE SEE INTERVENTIONS. PT NOTED WITH EYES OPEN APPEARS TO FOLLOW NURSE WITH EYES BUT DOES NOT FOLLOW COMMANDS, WITHDRAWS FROM PAINFUL STIMULI CHITRA. LIGHT SEDATION WITH DIPRIVAN ALSO ON 10 MG CARDIZEM GTT FOR AFIB AFLUTTER PER CORRECTIONAL SUBSTANCE ABUSE COUNSELOR. INTUBATED VSS NO DISTRESS NOTED AT THIS TIME.
--- NOTE | 2018-06-27 09:00 | NUR ---
PT REPOSITIONED FOR COMFORT
--- NOTE | 2018-06-27 10:15 | NUR ---
PTS HAD CALLED TO CHECK ON PT. RETURNED HER CALL UPDATE GIVEN. INFORMED HER OF RECTAL TUBE PLACEMENT ON SCANNING COORDINATOR DUE TO INCREASED INCONTINENCE TO KEEP STOOL OFF EXORIATED AREAS. SHE VERBALIZES UNDERSTANDING.
--- NOTE | 2018-06-27 13:00 | NUR ---
REPOSITIONED FOR COMFORT VSS WILL CONTINUE TO MONITOR NO SIGNS OF DISTRESS.
--- NOTE | 2018-06-27 15:00 | NUR ---
REASSESSMENT COMPLETE PT RECTAL TUBE LEAKED PARTIAL BED BATH GIVEN. VSS NO DISTRESS NOTED REPOSTIONED FOR COMFORT
--- NOTE | 2018-06-27 17:00 | NUR ---
IV TUBINGS AND MANIFOLD CHANGED PER PROTOCOL. VSS PT AWAKE WITH SLIGHT SEDATION
--- NOTE | 2018-06-27 19:45 | NUR ---
REPORT RECEIVED, INITIAL ASSESSMENT COMPLETE PER FLOW SHEET, PT SEDATED ON VENT OPENS EYES, NO ACUTE DISTRESS NOTED, VSS, REPOSITIONED, ORAL CARE COMPLETED, WILL CONTINUE TO ASSESS
--- NOTE | 2018-06-27 21:00 | NUR ---
PT APEARS TO BE IN NO ACUTE DISTRESS, RT AT BEDSIDE GIVING Tx, SUCTIONED, MCKEON CARE, VSS, WILL CONTINUE TO ASSESS
--- NOTE | 2018-06-27 23:00 | NUR ---
REASSESSMENT COMPLETED PER FLOW SHEET, NO ACUTE CHANGES SINCE PRIOR ASSESSMENT, REPOSITIONED, ELEVATED EXTREMITIES, VSS, WILL CONTINUE TO ASSESS
[2018-06-28] VITALS (24 sets, daily range): BP systolic 99–127; BP diastolic 66–90
--- NOTE | 2018-06-28 03:00 | NUR ---
REASSESSMENT COMPLETED PER FLOW SHEET, NO ACUTE CHANGES NOTED, REPOSITIONED, ELEVATED EXTREMITIES AND HOB, COMPLETE BED BATH AND LINEN CHANGE, MCKEON CARE COMPLETED, ORAL SUCTIONING NAD CARE, NO ACUTE DISTRESS NOTED, VSS, WILL CONTINUE TO MONITOR
[2018-06-28 04:02] LABS: BASOPHILS 0.3 % (0-2); EOSINOPHILS 0.8 % (0-7); HEMATOCRIT 31.7 % (42.0-54.0); HEMOGLOBIN 9.9 g/dL (13.5-17.5); IMMATURE GRANULOCYTES 0.3 % (0-5); LYMPHOCYTES 10.3 % (15-50); MCH 28.4 pg (26.0-34.0); MCHC 31.2 g/dL (31.0-37.0); MCV 90.8 fL (80.0-100.0); NEUTROPHILS 68.3 % (40-80); PLATELET COUNT 157 10x3/uL (130-400); RBC 3.49 10x6/uL (4.20-6.10); RDW 17.4 % (11.5-14.5); WBC 7.6 10x3/uL (4.8-10.8)
[2018-06-28 04:25] LABS: CALC OSMOLALITY 288 mosm/kg (275-300); CALCIUM 8.6 mg/dL (8.5-10.1); CARBON DIOXIDE 33.3 mmol/L (21.0-32.0); CHLORIDE - SERUM 101 mmol/L (98-107); CREATININE - SERUM 0.7 mg/dL (0.6-1.3); GLUCOSE 120 mg/dL (74-106); POTASSIUM - SERUM 3.7 mmol/L (3.5-5.1); SODIUM 141 mmol/L (136-145); UREA NITROGEN 32 mg/dL (7-18); eGFR NON AFRICAN AMERICAN > 90 mL/min (90-120)
--- NOTE | 2018-06-28 06:00 | NUR ---
PT TEMP INCREASED, REMOVED EXCESS COVERS AND PILLOWS, TEMP IN ROOM DECREASED, PLACED FAN IN ROOM FACING PT, OTHER VSS, WILL CONTINUE TO MONITOR AND NOTIFY ONCOMING NURSE
--- NOTE | 2018-06-28 08:30 | NUR ---
PTS HERE TO VISIT UPDATE GIVEN QUESTIONS ANSWERED. PT RESTING QUIETLY WITH EYES CLOSED VSS
--- NOTE | 2018-06-28 09:45 | NUR ---
FAMILY AT BEDSIDE VISITING
--- NOTE | 2018-06-28 12:30 | NUR ---
DR MAR SPEAKING WITH SPOUSE OF PTS STATUS. PT WILL NEED TRACH AND PEG WILL BE SCHEDULED AFTER HOLIDAY
--- NOTE | 2018-06-28 12:45 | NUR ---
PICC LINE NURSE BERNARD PURI RN ON UNIT ASKED HER TO CHECK MIDLINE IV ON PT DUE TO DIFFICULTY GETTING ALBUMIN TO INFUSE. PT HAS D5 GOING AT 10CC/HOUR, DIPRIVAN AT 14.4CC HOUR AND CARDIZEM GTT AT 10 CCHOUR ALL FLOWING VIA IV PUMPS WITHOUT DIFFICULTY. ALBUMIN PER GRAVITY DOES NOT FLOW. BLOOD BACKS UP INTO LINE. IV LINE FLUSHES EASILY WITH NORMAL SALINE. PT HAS EDEMA IN BILATERAL UPPER EXTREMITIES. NO WARMTH OR COOLNESS NOTED, RADIAL PULSE PALPABLE. SHE STATED AFTER LOOKING AT RIGHT MIDLINE THAT IT WAS FINE SINCE OTHER FLUIDS FLOWING WITHOUT DIFFICULTY AND NO PRESSURE ALARMS FROM IV PUMPS. BYPASS THE MANIFOLD MAY GET ALBUMIN FLOWING. PTS AT BEDSIDE FOR VISITATION.
--- NOTE | 2018-06-28 12:51 | NUR ---
Nutrition Follow Up: Chart reviewed and spoke with nursing. Noted surgery to be consulted for PEG and Trach. Pt is tolerating current TF regimen of Pulmocare @ 55 ml/hr (goal rate) with H2O flushes 100 ml Q3H. BM: 06/28/18 I>O Wt gain noted Labs reviewed Meds noted including D5W @ 10 ml/hr providing 41 kcal/d; Diprivan @ 14.4 ml/hr providing 380 kcal/d Rec continue current TF, H2O flush regimen. RD following.
--- NOTE | 2018-06-28 13:00 | NUR ---
DR MELENDEZ HERE ROUNDING
--- NOTE | 2018-06-28 15:00 | NUR ---
REASSESSMENT COMPLETED PT SEDATED WITH DIPRIVAN BUT OPENS EYES TO VERBAL STIMULI AND SPONTANEOUSLY. VSS NO DISTRESS NOTED BILATERAL UPPER EXTREMITIES EDEMATOUS ELEVATED WITH PILLOWS FOR COMFORT AND FOR SWELLING. PT ST PER INCUBATOR MACHINE OPERATOR NO ATRIAL FIB OR FLUTTER AT THIS TIME. HEELS ELEVATED OFF BED BRIDGED WITH PILLOWS.
--- NOTE | 2018-06-28 17:00 | NUR ---
PTS HERE FOR VISITATION ADDITIONAL FAMILY/FRIENDS HERE FOR VISITATION.
--- NOTE | 2018-06-28 19:00 | NUR ---
WHILE GIVING BEDSIDE REPORT TUBE FEEDING PUMP ALARM SOUNDED CLOGGED. UNABLE TO FLUSH WATER OR AIR. ANOTHER OGT PLACED. CLOGGED OGT REMOVED PLACEMENT VERIFIED BY AIR BOLUS BY 2 RNS MYSELF AND UBALDO RN DR MAR ON UNIT INFORMED THAT OGT WAS CLOGGED A NEW ONE PLACED HE ORDERED XRAY FOR TUBE PLACEMENT. ONCE PLACEMENT VERIFIED PER XRAY.. RESTART PULMOCARE TUBE FEEDS AT 55 CC/HOUR WITH THE INCREASE OF AUTOFLUSH TO 25 CC/HOUR.
--- NOTE | 2018-06-28 21:00 | NUR ---
X-RAY RESULTS RECEIVED, RECOMENDATION TO RETRACT OGT BY 3-4CM, RETRACTED OGT, PLACEMENT VERIFIED BY AUSCULTATION AND RETURN OF GASTRIC RESIDUAL, CLARK FARIAS STANLEY NOTIFIED AND ASSESSED WELL, RECOMENDED TO RESTART TUBE FEED THROUGH OGT AT LOW VOLUME AND INCREASE TO ORDERED VOLUME, RESTARTED TF PULMOCARE @25ML/HR WITH 40ML/HR H2O FLUSH, PT TOLLERATING WITHOUT DISTRESS, WILL CONTINUE TO MONITOR.
[2018-06-29] VITALS (23 sets, daily range): BP systolic 89–108; BP diastolic 60–74
--- NOTE | 2018-06-29 02:30 | NUR ---
ETT CUFF LEAK, AUDIBLE GUARGALING SOUNDS WITH DECREASED PRESSURES ON VENT, RT NOTIFIED, ORAL SUCTIONED, RT REINFLATED CUFF, VSS, WILL CONTINUE TO ASSESS
[2018-06-29 04:09] LABS: CALC OSMOLALITY 286 mosm/kg (275-300); CALCIUM 8.5 mg/dL (8.5-10.1); CHLORIDE - SERUM 99 mmol/L (98-107); CREATININE - SERUM 0.7 mg/dL (0.6-1.3); GLUCOSE 110 mg/dL (74-106); POTASSIUM - SERUM 3.4 mmol/L (3.5-5.1); SODIUM 140 mmol/L (136-145); UREA NITROGEN 32 mg/dL (7-18); eGFR NON AFRICAN AMERICAN > 90 mL/min (90-120)
[2018-06-29 04:24] LABS: BASOPHILS 0.7 % (0-2); EOSINOPHILS 0.8 % (0-7); HEMATOCRIT 30.1 % (42.0-54.0); HEMOGLOBIN 9.4 g/dL (13.5-17.5); IMMATURE GRANULOCYTES 0.3 % (0-5); LYMPHOCYTES 10.6 % (15-50); MCH 28.6 pg (26.0-34.0); MCHC 31.2 g/dL (31.0-37.0); MCV 91.5 fL (80.0-100.0); MEAN PLATELET VOLUME 11.6 fL (7.4-10.4); MONOCYTES 18.1 % (2-11); NEUTROPHILS 69.5 % (40-80); PLATELET COUNT 175 10x3/uL (130-400); RBC 3.29 10x6/uL (4.20-6.10); RDW 17.4 % (11.5-14.5); WBC 7.4 10x3/uL (4.8-10.8)
--- NOTE | 2018-06-29 07:00 | NUR ---
SHIFT ASSESSMENT COMPLETED, PT CARE ASSUMED. MONITORS ON AND WORKING, VITALS STABLE. PT TURNED AND REPOSITIONED FOR COMFORT. NO SIGNS/SYMPTOMS OF PAIN OR DISTRESS AT THIS TIME. WILL CONTINUE TO OBSERVE.
--- NOTE | 2018-06-29 09:00 | NUR ---
PT TURNED AND REPOSITIONED FOR COMFORT, MONITORS ON AND WORKING, VITALS STABLE. PT CALLED, UPDATE PROVIDED. WILL CONTINUE TO OBSERVE.
--- NOTE | 2018-06-29 11:00 | NUR ---
PT TURNED AND REPOSITIONED FOR COMFORT. NO SIGNS/SYMPTOMS OF PAIN OR DISCOMFORT NOTED AT THIS TIME. VITALS STABLE. SEE FLOW SHEET FOR FURTHER DETAILS. WILL CONTINUE TO OBSERVE.
--- NOTE | 2018-06-29 11:52 | NUR ---
SPOKE WITH ABOUT TRACH AND PEG, WILL TRY TO WORK IN SCHEDULE TOMORROW. WILL OBTAIN CONSENT FOR PROCEDURE.
--- NOTE | 2018-06-29 13:00 | NUR ---
PT TURNED AND REPOSITIONED FOR COMFORT, SPOKE WITH FAMILY ABOUT POSSIBLE TRACH AND PEG PROCEDURE, CONSENT FORMS OBTAINED. MONITORS ON AND WORKING, VITALS STABLE. NO SIGNS/SYMPTOMS OF PAIN OR DISCOMFORT NOTED AT THIS TIME, WILL CONTINUE TO OBSERVE.
[2018-06-29 13:14] LABS: MAGNESIUM - SERUM 2.1 mg/dL (1.8-2.4); POTASSIUM - SERUM 4.5 mmol/L (3.5-5.1)
--- NOTE | 2018-06-29 15:00 | NUR ---
NO CHANGES, PT TURNED AND REPOSITIONED FOR COMFORT. VITALS STABLE, SEE FLOW SHEET FOR FURTHER DETIALS. WILL CONTINUE TO OBSERVE.
--- NOTE | 2018-06-29 19:00 | NUR ---
RECEIVED PATIENT FROM DAY SHIFT RN. PATIENT INTUBATED AND SEDATED. INITIAL SHIFT ASSESSMENT COMPLETED, SEE FLOWSHEET. VSS. WILL MONITOR CLOSELY THROUGH OUT THE NIGHT.
--- NOTE | 2018-06-29 21:00 | NUR ---
PM MEDS GIVEN PER MD ORDERS, SEE AUG. VSS. NO ACUTE CHANGES NOTED. WILL CTM.
--- NOTE | 2018-06-29 23:00 | NUR ---
REASSESSMENT COMPLETED, SEE FLOWSHEET. VSS. NO ACUTE CHANGES NOTED. WILL CTM.
[2018-06-30] VITALS (23 sets, daily range): BP systolic 96–115; BP diastolic 64–81
--- NOTE | 2018-06-30 01:00 | NUR ---
PATIENT APPEARS TO BE RESTING COMFORTABLY. TF TURNED OFF AT MIDNIGHT FOR PROCEDURE LATER TODAY. VSS. NO ACUTE CHANGES NOTED. WILL CTM.
--- NOTE | 2018-06-30 03:00 | NUR ---
REASSESSMENT COMPLETED, SEE FLOWSHEET. VSS. NO CHANGES NOTED. WILL CTM.
[2018-06-30 04:32] LABS: BASOPHILS 0.8 % (0-2); EOSINOPHILS 2.2 % (0-7); IMMATURE GRANULOCYTES 0.2 % (0-5); LYMPHOCYTES 12.9 % (15-50); MCH 28.2 pg (26.0-34.0); MCV 90.9 fL (80.0-100.0); MEAN PLATELET VOLUME 11.3 fL (7.4-10.4); MONOCYTES 17.3 % (2-11); NEUTROPHILS 66.6 % (40-80); PLATELET COUNT 188 10x3/uL (130-400); RBC 3.19 10x6/uL (4.20-6.10); RDW 17.2 % (11.5-14.5)
[2018-06-30 04:36] LABS: WBC 5.1 10x3/uL (4.8-10.8)
--- NOTE | 2018-06-30 05:00 | NUR ---
PATIENT APPEARS TO BE RESTING COMFORTABLY. CHG AND MCKEON WIPES USED, PATIENT TOLERATED WELL. VSS. NO ACUTE CHANGES NOTED. WILL CTM.
[2018-06-30 05:25] LABS: CALC OSMOLALITY 276 mosm/kg (275-300); CALCIUM 8.4 mg/dL (8.5-10.1); CARBON DIOXIDE 31.2 mmol/L (21.0-32.0); CHLORIDE - SERUM 98 mmol/L (98-107); CREATININE - SERUM 0.7 mg/dL (0.6-1.3); GLUCOSE 98 mg/dL (74-106); MAGNESIUM - SERUM 2.2 mg/dL (1.8-2.4); PHOSPHOROUS 4.1 mg/dL (2.5-4.9); PRO BNP 736 pg/mL (0-125); SODIUM 136 mmol/L (136-145); UREA NITROGEN 27 mg/dL (7-18); eGFR NON AFRICAN AMERICAN > 90 mL/min (90-120)
--- NOTE | 2018-06-30 07:00 | NUR ---
SHIFT ASSESSMENT COMPLETED. PT CARE ASSUMED. MONITORS ON AND WORKING, VITALS STABLE. SEE FLOW SHEET FOR FURTHER DETIALS. WILL CONTINUE TO OBSERVE.
--- NOTE | 2018-06-30 09:00 | NUR ---
PT TURNED AND REPOSITIONED FOR COMFORT. MONITORS ON AND WORKING, VITALS STABLE, NO SIGNS/SYMPTOMS OF PAIN OR DISCOMFORT AT THIS TIME. WILL CONTINUE TO OBSERVE.
[2018-06-30 10:05] LABS: INR 1.18 (0.85-1.17); PROTIME 14.4 SECONDS (11.6-15.0)
[2018-06-30 10:06] LABS: APTT 54.4 SECONDS (22.8-39.4)
--- NOTE | 2018-06-30 10:41 | NUR ---
Nutrition follow-up: Pt NPO for PEG, trach placement today Labs reviewed Wt: 234# Recommend continuing Pulmocare @ 55 ml/hr. RDN following.
--- NOTE | 2018-06-30 11:00 | NUR ---
PT TURNED AND REPOSITIONED. VITALS STABLE. SEE FLOW SHEET FOR FURTHER DETAILS. WILL CONTINUE TO OBSERVE.
--- NOTE | 2018-06-30 13:00 | NUR ---
FAMILY AT BEDSIDE, UPDATE PROVIDED, TRACH PROCEDURE SCHEDULED PER , FAMILY AWARE, CONSENTS OBTAINED. VITALS STABLE. WILL CONTINUE TO OBSERVE.
--- NOTE | 2018-06-30 15:00 | NUR ---
PT TOLERATED TRACH PROCEDURE WELL. NO SIGNS/SYMPTOMS OF PAIN OR DISCOMFORT NOTED, MONITORS ON AND WORKING. VITALS STABLE. FAMILY UPDATED. FRESH TRACH PROTOCOL SIGNS UP. WILL CONTINUE TO MONITORS.
--- NOTE | 2018-06-30 17:00 | NUR ---
FAMILY AT BEDSIDE, UPDATE PROVIDED, PT LYING IN BED SEDATED ON VENT VIA TRACH. MONITORS ON AND WORKING. VITALS STABLE, NO SIGNS/SYMPTOMS OF PAIN OR DISCOMFORT NOTED AT THIS TIME, WILL CONTINUE TO OBSERVE.
--- NOTE | 2018-06-30 19:00 | NUR ---
RECEIVED PATIENT FROM DAY SHIFT RN. PATIENT ON FRESH TRACH PROTOCOL, SEDATED. INITIAL SHIFT ASSESSMENT COMPLETED, SEE FLOWSHEET. VSS. WILL MONITOR CLOSELY THROUGH OUT THE NIGHT.
--- NOTE | 2018-06-30 21:00 | NUR ---
PM MEDS GIVEN PER MD ORDERS, SEE AUG. VSS. WILL CTM.
--- NOTE | 2018-06-30 23:00 | NUR ---
PATIENT APPEARS TO BE RESTING COMFORTABLY. VSS. NO ACUTE CHANGES NOTED. REASSESSMENT COMPLETED, SEE FLOWSHEET. WILL CTM.
[2018-07-01] VITALS (24 sets, daily range): BP systolic 98–143; BP diastolic 66–96
--- NOTE | 2018-07-01 01:00 | NUR ---
NO ACUTE CHANGES NOTED. VSS. WILL CTM.
--- NOTE | 2018-07-01 03:00 | NUR ---
REASSESSMENT COMPLETED, SEE FLOWSHEET. VSS. PATIENT APPEARS TO BE RESTING COMFORTABLY. WILL CTM.
[2018-07-01 04:11] LABS: BASOPHILS 0.8 % (0-2); EOSINOPHILS 1.4 % (0-7); HEMATOCRIT 29.7 % (42.0-54.0); HEMOGLOBIN 9.5 g/dL (13.5-17.5); IMMATURE GRANULOCYTES 0.4 % (0-5); LYMPHOCYTES 15.9 % (15-50); MCH 28.7 pg (26.0-34.0); MCV 89.7 fL (80.0-100.0); MEAN PLATELET VOLUME 10.7 fL (7.4-10.4); MONOCYTES 14.5 % (2-11); PLATELET COUNT 191 10x3/uL (130-400); RBC 3.31 10x6/uL (4.20-6.10); WBC 4.9 10x3/uL (4.8-10.8)
[2018-07-01 04:30] LABS: CALC OSMOLALITY 276 mosm/kg (275-300); CALCIUM 8.7 mg/dL (8.5-10.1); CARBON DIOXIDE 32.5 mmol/L (21.0-32.0); CHLORIDE - SERUM 97 mmol/L (98-107); CREATININE - SERUM 0.7 mg/dL (0.6-1.3); GLUCOSE 104 mg/dL (74-106); PHOSPHOROUS 4.2 mg/dL (2.5-4.9); POTASSIUM - SERUM 3.9 mmol/L (3.5-5.1); SODIUM 137 mmol/L (136-145); UREA NITROGEN 22 mg/dL (7-18); eGFR NON AFRICAN AMERICAN > 90 mL/min (90-120)
--- NOTE | 2018-07-01 05:00 | NUR ---
NO CHANGES NOTED. CLEANED PATIENT'S FACE AND NECK. SURE STEP MCKEON CATH CLEANING KIT USED. PATIENT TOLERATED WELL. WILL CTM.
--- NOTE | 2018-07-01 07:00 | NUR ---
RECEIVED REPORT FROM OFFGOING SHIFT. PATIENT RESTING IN BED SEDATED ON VENT BY TRACH. TRACH COLLAR CLEAN AND DRY. LUNG MARTEL ARE CONGESTED IN ALL LOBES. DIPRIVAN INFUSING AT 35 MCG, NS AT KVO, AND CARDIZEM AT 9MG/HR--ALL THROUGH RIGHT PICC LINE. IN A-FIB UNCONTROLLED. HR IS 105-BRIANNA. BOWEL SOUNDS PRESENT X 4. +2 OR +3 PITTING EDEMA TO ALYSA LOWER EXTREMETIES. BP AND O2 SAT STABLE. WILL CONTINUE TO MONITOR.
--- NOTE | 2018-07-01 07:40 | NUR ---
CHANGED PROPOFOL TUBING. INFUSING AT 35MCG/KG/MIN VIA RIGHT PICC LINE.
--- NOTE | 2018-07-01 08:44 | NUR ---
PATIENT RESTING IN BED C STABLE VS. CALL CHRISTY IN REACH. ASKED PATIENT WHICH [facility] SHE USES--UNABLE TO TELL ME AT THIS TIME.
--- NOTE | 2018-07-01 08:45 | NUR ---
TURNED PROPOFOL OFF SINCE PT HAS TRACHEOSTOMY NOW. HR ELEVATED TO 115 WITH DILITIAZEM INFUSING AT 10MG/HR. IF HR DOES NOT SLOW DOWN IN NEXT HOUR OR 2 NURSE WILL NOTIFY PHYSICIAN.
--- NOTE | 2018-07-01 09:29 | NUR ---
ANCEF BAG READY HANGING READY TO INFUSE FOR PEG PROCEDURE.
--- NOTE | 2018-07-01 10:01 | NUR ---
INCREASED CARDIZEM DRIP TO 15MG/HR FOR HR 130. BP 124/76.
--- NOTE | 2018-07-01 10:42 | NUR ---
OBTAINED CONSENT FROM EDGAR CAST (PATIENTS ) FOR SCHEDULED BRONCHOSCOPY TODAY BY DR. MAR.
--- NOTE | 2018-07-01 11:00 | NUR ---
PEG TUBE PLACED BY DR. AGUDELO AT THIS TIME. PROPOFOL USED FOR SEDATION
--- NOTE | 2018-07-01 11:33 | NUR ---
CHANGED RIGHT UPPER ARM MIDLINE DRESSING. VSS. SUCTIONED MUCUS PLUG FROM TRACHE.
--- NOTE | 2018-07-01 12:16 | NUR ---
FAMILY IN ROOM VISITING WITH PATIENT. PATIENT AWAKE AND ALERT. VSS. WILL CONTINUE TO MONITOR.
--- NOTE | 2018-07-01 14:50 | NUR ---
SPOKE TO DR. RAUSCH ON PHONE ABOUT ELEVATED HR. ORDERED .25MG DIG NOW AND AGAIN IN 2 HOURS.
--- NOTE | 2018-07-01 15:21 | NUR ---
RT ASSISTED WITH FULL LINEN CHANGE AND TURNING PATIENT TO LEFT SIDE.
--- NOTE | 2018-07-01 17:30 | NUR ---
OBTAINED ORDER FROM DR. AGUDELO THAT IT IS OKAY TO USE PEG TUBE. ADMINISTERED TYLENOL FOR FEVER AND SCHEDULED ROBITUSSIN.
--- NOTE | 2018-07-01 17:44 | NUR ---
SECOND DOSE OF DIGOXIN GIVEN AK DR. JOHNSON. ALSO CALLED DR. MAR ABOUT HR BECAUSE ELEVATED HR SEEMS TO BE RELATED TO ANXIETY. STATED "OKAY TO TURN PROPOFOL DRIP BACK ON".
--- NOTE | 2018-07-01 17:55 | NUR ---
RESTRATED PROPOFOL AT 45 MCG/KG/MIN
--- NOTE | 2018-07-01 19:00 | NUR ---
RECEIVED PATIENT FROM DAY SHIFT RN, INTUBATED AND SEDATED. PATIENT WITH FRESH TRACH PROTOCOL. INITIAL SHIFT ASSESSMENT COMPLETED, SEE FLOWSHEET. WILL MONITOR CLOSELY THROUGH OUT THE NIGHT.
--- NOTE | 2018-07-01 21:00 | NUR ---
PM MEDS GIVEN PER MD ORDERS, SEE AUG. VSS. NO ACUTE CHANGES NOTED. WILL CTM.
--- NOTE | 2018-07-01 23:00 | NUR ---
SHIFT REASSESSMENT COMPLETED, SEE FLOWSHEET. VSS. NO CHANGES NOTED AT THIS TIME. WILL CTM.
[2018-07-02] VITALS (23 sets, daily range): BP systolic 79–111; BP diastolic 59–86
--- NOTE | 2018-07-02 01:00 | NUR ---
PATIENT APPEARS TO BE RESTING COMFORTABLY. VSS. NO ACUTE CHANGES NOTED. TF RESTARTED EARLIER IN THE SHIFT, 2100, VIA PEG. TOLERATING FEEDINGS WELL. Q2H TURN IN EFFECT. WILL CTM.
--- NOTE | 2018-07-02 03:00 | NUR ---
SHIFT REASSESSMENT COMPLETED, SEE FLOWSHEET. PATIENT RESTING AT THIS TIME. VSS. WILL CTM.
[2018-07-02 04:45] LABS: BASOPHILS 0.3 % (0-2); EOSINOPHILS 1.3 % (0-7); HEMATOCRIT 32.7 % (42.0-54.0); HEMOGLOBIN 10.3 g/dL (13.5-17.5); IMMATURE GRANULOCYTES 0.3 % (0-5); LYMPHOCYTES 15.6 % (15-50); MCH 28.7 pg (26.0-34.0); MCHC 31.5 g/dL (31.0-37.0); MCV 91.1 fL (80.0-100.0); MEAN PLATELET VOLUME 11.1 fL (7.4-10.4); MONOCYTES 18.2 % (2-11); NEUTROPHILS 64.3 % (40-80); PLATELET COUNT 187 10x3/uL (130-400); RBC 3.59 10x6/uL (4.20-6.10); RDW 17.2 % (11.5-14.5); WBC 6.1 10x3/uL (4.8-10.8)
--- NOTE | 2018-07-02 05:00 | NUR ---
PATIENT RESTING. CHG AND SURE STEP WIPES USED THIS MORNING, TOLERATED WELL. VSS. NO ACUTE CHANGES NOTED. WILL CTM.
[2018-07-02 05:13] LABS: CALC OSMOLALITY 280 mosm/kg (275-300); CALCIUM 8.7 mg/dL (8.5-10.1); CARBON DIOXIDE 32.8 mmol/L (21.0-32.0); CHLORIDE - SERUM 98 mmol/L (98-107); CREATININE - SERUM 0.6 mg/dL (0.6-1.3); GLUCOSE 109 mg/dL (74-106); SODIUM 139 mmol/L (136-145); UREA NITROGEN 19 mg/dL (7-18); eGFR NON AFRICAN AMERICAN > 90 mL/min (90-120)
[2018-07-02 05:27] LABS: POTASSIUM - SERUM 4.3 mmol/L (3.5-5.1)
--- NOTE | 2018-07-02 10:41 | NUR ---
Nutrition follow-up: Intubated, new trach, sedated with propofol @ 28 ml/hr Pulmocare infusing @ 25 ml/hr -> goal rate of 35 ml/hr with propofol Labs reviewed Wt: 219# RDN following.
[2018-07-02 13:16] LABS: FUNGUS STAIN Final report (())
--- NOTE | 2018-07-02 13:31 | OP ---
PATIENT NAME: TEE CAST MEDICAL RECORD: [id number] :52 LOCATION:.[facility] [id number] ADMISSION DATE:06/15/18 SURGEON: ELLE AGUDELO MD DATE OF OPERATION: 07/01/2018 PREOPERATIVE DIAGNOSES: 1. Pnvlr-an-kjfbphg respiratory failure. 2. COPD with acute exacerbation. 3. Atrial fibrillation. 4. History of cardiac arrest. POSTOPERATIVE DIAGNOSES: 1. Udbsf-bh-aydgxhx respiratory failure. 2. COPD with acute exacerbation. 3. Atrial fibrillation. 4. History of cardiac arrest. PROCEDURE: PEG tube placement. SURGEON: Elle Agudelo MD REPORT OF OPERATION: An Olympus endoscope was advanced through the mouth and esophagus. Once we entered the stomach, the stomach was insufflated, an area was found on antrum of the stomach to house the catheter. A total of 5 cc of 1% lidocaine was infused into the tissues on the skin after it had been prepped and draped. A skin incision was made with an 11 blade in the left upper quadrant and an Angiocath needle was inserted through this incision into the gastric lumen. A wire was advanced through the Angiocath and this was grasped with an Endo snare. The snare and wire were pulled through the mouth and esophagus. The PEG tube was then affixed to the wire and this was pulled through the mouth and esophagus and out through the anterior abdominal wall. This rested it about 2.5 cm at the skin. We reinserted the endoscope and noted there was no sign of any active bleeding inside the gastric lumen. At this point, the insufflation was removed and the PEG tube was affixed to the skin. COMPLICATIONS: None. CONDITION: Stable. ANESTHESIA: TIVA. BLOOD LOSS: Minimal. TRANSINT:[id number] Voice Confirmation ID: [id number] DOCUMENT ID: [id number] ELLE AGUDELO MD at 1331 CC: [id number] DICTATION DATE: 07/01/18 1058 LEAD QUALITY TECHNICIAN: 07/01/18 1109 ADM IN [place] [id number]
--- NOTE | 2018-07-02 16:13 | NUR ---
0715-RECIEVECD PER FLOW SHEET-REPOSITIONED ADN NOTED INCONTINENT OF STOOL-COMPLETE AM CARE DONE-COCCYX DRG DRY AND INTACT-AFIB ON MONITOR-CARDIZEM GTT INFUSING-PEG TUBE IN PTLF-[id number] DRK BOUCHRA URINE NOTED 0800-NO CHANGES NOTED-AFIB ON MONITOR 1030-DR MAR AT [facility]-TUBE FEEDING STOPPED ADN DIPRIVAN TITRATED TO MAI 1 FOR PLANNED BEDSE [id number] CALLS FOR FOR UPDATE IN CARE AND CONSENT 1100-RETURN CALL FROM -STATED ENROUTE AND WILL SIGN CONSENT AT THAT TIME 1215-REPOSITIONED TO [place] AND DR MAR IN ROOM AND SPOKE WITH -ADDRESSED CONCERNS-MAI 1 AND DIPRIVAN AT 45 MCG 1230-RT SET UP AT BEDSIDE IN PROGRESS FOR PLANNED BRONCH-MAI 1 1300-COMPLETED AND BROUGHT TO BEDSIDE- 1430-REPOSITIONED AND DIPRIVAN DECREASED TO [id number] 30ML/H 1600DIPRIVAN AT 35MCG-MAI AT 1- AT [facility]
[2018-07-02 18:09] LABS: ACID FAST SMEAR Negative (()); AFB SPECIMEN PROCESSING Concentration (())
--- NOTE | 2018-07-02 19:00 | NUR ---
REPORT RECIEVED, SHIFT ASSESSMENT COMPLETE, PLEASE SEE FLOW SHEETS FOR DETAILS. SEDATED AND ON VENT, TRACH SECURED. PATIENT WITHDRAWS FROM PAIN, DOES NOT FOLLOW COMMANDS. LUNGS DIMINISHED WITH RHONCHI AND CRACKLES THROUGHOUT. UNCONTROLLED A-FIB ON CM, PPP. VSS ATT, BED LOW AND LOCKED, RESTRAINTS CHECKED. ORAL CARE AND TURNING PROVIDED. WILL CPOC.
--- NOTE | 2018-07-02 21:30 | NUR ---
ORAL CARE AND TURNING PROVIDED. RESTRAINTS CHECKED. VSS, BED LOW AND LOCKED, WILL CPOC.
--- NOTE | 2018-07-02 23:00 | NUR ---
REASSESSMENT COMPLETE, PLEASE SEE FLOW SHEETS FOR DETAILS. NO ACUTE CHANGES FROM PREVIOUS ASSESSMENT TO NOTE. ORAL CARE AND TURNING PROVIDED. RESTRAINTS CHECKED. VSS, BED LOW AND LOCKED. WILL CPOC.
[2018-07-03] VITALS (24 sets, daily range): BP systolic 95–138; BP diastolic 62–84
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
--- NOTE | 2018-07-03 03:00 | NUR ---
REASSESSMENT COMPLETE, PLEASE SEE FLOW SHEETS FOR DETAILS. NO ACUTE CHANGES FROM PREVIOUS ASSESSMENT TO NOTE. MCKEON CARE, ORAL CARE, AND TURNING PROVIDED. VSS ATT, BED LOW AND LOCKED, RESTRAINTS CHECKED. WILL CPOC.
[2018-07-03 04:10] LABS: BASOPHILS 0.3 % (0-2); EOSINOPHILS 1.7 % (0-7); HEMATOCRIT 31.9 % (42.0-54.0); IMMATURE GRANULOCYTES 0.6 % (0-5); LYMPHOCYTES 12.3 % (15-50); MCH 28.5 pg (26.0-34.0); MCHC 31.3 g/dL (31.0-37.0); MCV 90.9 fL (80.0-100.0); MEAN PLATELET VOLUME 10.7 fL (7.4-10.4); MONOCYTES 15.3 % (2-11); NEUTROPHILS 69.8 % (40-80); PLATELET COUNT 219 10x3/uL (130-400); RBC 3.51 10x6/uL (4.20-6.10); RDW 16.7 % (11.5-14.5); WBC 6.7 10x3/uL (4.8-10.8)
[2018-07-03 04:23] LABS: CALC OSMOLALITY 280 mosm/kg (275-300); CHLORIDE - SERUM 97 mmol/L (98-107); CREATININE - SERUM 0.7 mg/dL (0.6-1.3); GLUCOSE 145 mg/dL (74-106); SODIUM 138 mmol/L (136-145); UREA NITROGEN 18 mg/dL (7-18); eGFR NON AFRICAN AMERICAN > 90 mL/min (90-120)
--- NOTE | 2018-07-03 04:52 | NUR ---
ORAL CARE AND TURNING PROVIDED. NO DISTRESS TO NOTE. VSS, BED LOW AND LOCKED, RESTRAINTS CHECKED. WILL CPOC.
--- NOTE | 2018-07-03 07:15 | NUR ---
REC'D CARE OF PT.
--- NOTE | 2018-07-03 08:18 | NUR ---
INITIAL ASSESSMENT COMPLETED VIA FLOW SHEET.
--- NOTE | 2018-07-03 10:00 | NUR ---
REPORT GIVEN TO HAILY BRICE RN AND HE ASSUMED CARE.
--- NOTE | 2018-07-03 10:58 | NUR ---
REPORT GIVEN TO HAILY BRICE RN AND HE ASSUMED CARE.
--- NOTE | 2018-07-03 15:00 | NUR ---
NO CHAGE NOTED
--- NOTE | 2018-07-03 19:00 | NUR ---
REPORT RECIEVED, SHIFT ASSESSMENT COMPLETE, PLEASE SEE FLOW SHEETS FOR DETAILS. PATIENT NOW OPENS EYES ON OWN, FOLLOWS COMMANDS WITH NOTABLE EXTREME WEAKNESS IN ALL EXTREMETIES. DENIES PAIN WHEN ASKED. BS HYPERACTIVE X4, PASSING GAS. LUNGS WITH RHONCHI THROUGHOUT, DIMINISHED IN LOWER LOBES. IRREGULAR HR NOTED OH CM, UNCONTROLLED A-FIB NOTED. WAS SWITCHED TO PO CARDIZEM TODAY, WILL MONITOR CLOSELY. ALL OTHER VSS, BED LOW AND LOCKED, RESTRAINTS CHECKED. WILL CPOC.
--- NOTE | 2018-07-03 19:35 | NUR ---
HR JUMPED TO 150-170 BMP, DR MELENDEZ ON UNIT, GIVING PO CARDIZEM PER ORDERS, IMFORMED DR MELENDEZ ON SITUATION, HE STATED PO SHOULD WORK. ASKED IF OKAY TO START BACK IV CARDIZEM IF NOT WORKING, DR MELENDEZ WAS OKAY WITH THIS. WILL CPOC AND MONITOR CLOSELY.
--- NOTE | 2018-07-03 21:00 | NUR ---
ORAL CARE AND TURNING PROVIDED. OFFERED A BATH, THIS WAS REFUSED, WILL TRY AGAIN IN AM. DENIES ANY PAIN. VSS, BED LOW AND LOCKED, CALL LIGHT IN REACH. WILL CPOC.
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
[2018-07-04] VITALS (24 sets, daily range): BP systolic 97–153; BP diastolic 67–101
--- NOTE | 2018-07-04 03:00 | NUR ---
REASSESSMENT COMPLETE, PLEASE SEE FLOW SHEETS FOR DETAILS. NO ACUTE CHANGES FROM PREVIOUS ASSESSMENT TO NOTE. FULL BED BATH, LINEN CHANGE, MCKEON CARE PROVIDED. ORAL CARE AND TURNING PROVIDED WELL. TOLERATED WELL. CHANGED SACRAL DRESSING, STAGE 2 SKIN TEARS X3 NOTED ON BUTTOCKS, THIS WAS CLEANED WITH SOAP AND WATER, DRIED AND NEW DRESSING APPLIED. VSS ATT, BED LOW AND LOCKED, CALL LIGHT IN REACH. WILL CPOC.
[2018-07-04 04:53] LABS: BASOPHILS 0.3 % (0-2); EOSINOPHILS 1.4 % (0-7); HEMATOCRIT 29.6 % (42.0-54.0); HEMOGLOBIN 9.2 g/dL (13.5-17.5); IMMATURE GRANULOCYTES 0.9 % (0-5); LYMPHOCYTES 11.4 % (15-50); MCH 28.1 pg (26.0-34.0); MCHC 31.1 g/dL (31.0-37.0); MCV 90.5 fL (80.0-100.0); MEAN PLATELET VOLUME 10.4 fL (7.4-10.4); MONOCYTES 18.5 % (2-11); NEUTROPHILS 67.5 % (40-80); PLATELET COUNT 225 10x3/uL (130-400); RBC 3.27 10x6/uL (4.20-6.10); RDW 16.9 % (11.5-14.5); WBC 6.4 10x3/uL (4.8-10.8)
--- NOTE | 2018-07-04 05:00 | NUR ---
ORAL CARE AND TURNING PROVIDED. VSS, BED LOW AND LOCKED, CALL LIGHT IN REACH. WILL CPOC.
[2018-07-04 05:12] LABS: ALBUMIN 2.6 g/dL (3.4-5.0); ALKALINE PHOSPHATASE 195 U/L (46-116); ALT (SGPT) 37 U/L (10-68); BILIRUBIN - TOTAL 3.87 mg/dL (0.2-1.3); CALC OSMOLALITY 278 mosm/kg (275-300); CALCIUM 8.6 mg/dL (8.5-10.1); CARBON DIOXIDE 33.7 mmol/L (21.0-32.0); CHLORIDE - SERUM 97 mmol/L (98-107); CREATININE - SERUM 0.7 mg/dL (0.6-1.3); GLUCOSE 158 mg/dL (74-106); PHOSPHOROUS 2.5 mg/dL (2.5-4.9); POTASSIUM - SERUM 3.4 mmol/L (3.5-5.1); PROTEIN - SERUM 6.6 g/dL (6.4-8.2); SODIUM 137 mmol/L (136-145); UREA NITROGEN 18 mg/dL (7-18); eGFR NON AFRICAN AMERICAN > 90 mL/min (90-120)
[2018-07-04 16:04] LABS: BILIRUBIN - INDIRECT 1.2 mg/dL (0.00-1.00); BILIRUBIN - TOTAL 4.2 mg/dL (0.2-1.3)
[2018-07-05] VITALS (23 sets, daily range): BP systolic 85–140; BP diastolic 53–89
[2018-07-05 04:17] LABS: BASOPHILS 0.4 % (0-2); EOSINOPHILS 1.2 % (0-7); HEMATOCRIT 28.6 % (42.0-54.0); LYMPHOCYTES 12.5 % (15-50); MCH 28.4 pg (26.0-34.0); MCHC 31.5 g/dL (31.0-37.0); MCV 90.2 fL (80.0-100.0); MEAN PLATELET VOLUME 10.4 fL (7.4-10.4); MONOCYTES 19.5 % (2-11); NEUTROPHILS 65.4 % (40-80); PLATELET COUNT 230 10x3/uL (130-400); RBC 3.17 10x6/uL (4.20-6.10); RDW 16.9 % (11.5-14.5); WBC 5.2 10x3/uL (4.8-10.8)
[2018-07-05 04:31] LABS: CALC OSMOLALITY 275 mosm/kg (275-300); CALCIUM 8.8 mg/dL (8.5-10.1); CARBON DIOXIDE 33.3 mmol/L (21.0-32.0); CHLORIDE - SERUM 98 mmol/L (98-107); CREATININE - SERUM 0.6 mg/dL (0.6-1.3); GLUCOSE 114 mg/dL (74-106); POTASSIUM - SERUM 3.8 mmol/L (3.5-5.1); SODIUM 137 mmol/L (136-145); UREA NITROGEN 16 mg/dL (7-18); eGFR NON AFRICAN AMERICAN > 90 mL/min (90-120)
[2018-07-05 10:23] LABS: BILIRUBIN - DIRECT 2.4 mg/dL (0.00-0.30)
--- NOTE | 2018-07-05 10:33 | NUR ---
PATIENT WAS ON CPAP, WITHOUT WARNING HE DESATTED TO 69% AND BEGAN TO BECOME CYANOTIC, RT IN NEXT ROOM, GOT HIM TO BEDSIDE AND HE PLACED VENT BACK INTO SIMV AND CYCLED 100%, PATIENT PINKED BACK UP AND WAS SATTING MID 90%, THIS LASTED LESS THAN [address] KIRK PRESENT AND MADE AWARE OF SITUATION.
[2018-07-05 10:39] LABS: BILIRUBIN - INDIRECT 1.24 mg/dL (0.00-1.00); BILIRUBIN - TOTAL 3.64 mg/dL (0.2-1.3)
--- NOTE | 2018-07-05 10:41 | NUR ---
Nutrition follow-up: TF off at this time for CT scan Propofol running @ 25 ml/hr Labs reviewed Wt: 217# Pt edematous per nurging RDN following.
[2018-07-06] VITALS (23 sets, daily range): BP systolic 90–144; BP diastolic 63–98
[2018-07-06 04:57] LABS: BASOPHILS 0.4 % (0-2); EOSINOPHILS 1.6 % (0-7); HEMOGLOBIN 9.5 g/dL (13.5-17.5); IMMATURE GRANULOCYTES 1.4 % (0-5); LYMPHOCYTES 10.4 % (15-50); MCH 28.7 pg (26.0-34.0); MCHC 31.7 g/dL (31.0-37.0); MCV 90.6 fL (80.0-100.0); MEAN PLATELET VOLUME 10.4 fL (7.4-10.4); MONOCYTES 19.1 % (2-11); NEUTROPHILS 67.1 % (40-80); PLATELET COUNT 251 10x3/uL (130-400); RBC 3.31 10x6/uL (4.20-6.10); RDW 17.3 % (11.5-14.5)
[2018-07-06 05:15] LABS: WBC 6.9 10x3/uL (4.8-10.8)
[2018-07-06 05:22] LABS: ALBUMIN 3.1 g/dL (3.4-5.0); ALKALINE PHOSPHATASE 187 U/L (46-116); ALT (SGPT) 46 U/L (10-68); BILIRUBIN - TOTAL 3.36 mg/dL (0.2-1.3); CALC OSMOLALITY 273 mosm/kg (275-300); CALCIUM 8.8 mg/dL (8.5-10.1); CARBON DIOXIDE 32.5 mmol/L (21.0-32.0); CHLORIDE - SERUM 97 mmol/L (98-107); CREATININE - SERUM 0.7 mg/dL (0.6-1.3); GLUCOSE 104 mg/dL (74-106); POTASSIUM - SERUM 4.1 mmol/L (3.5-5.1); PROTEIN - SERUM 7.2 g/dL (6.4-8.2); SODIUM 136 mmol/L (136-145); UREA NITROGEN 18 mg/dL (7-18); eGFR NON AFRICAN AMERICAN > 90 mL/min (90-120)
[2018-07-06 05:29] LABS: APTT 30.2 SECONDS (22.8-39.4); INR 1.17 (0.85-1.17); PROTIME 14.4 SECONDS (11.6-15.0)
--- NOTE | 2018-07-06 07:15 | NUR ---
REPORT RECIEVED, SHIFT ASSESSMENT COMPLETE, PT IS ON VENT, 95% O2 SAT. ALL PPP, VSS, WILL CON'T TO MONITOR
--- NOTE | 2018-07-06 11:30 | NUR ---
REASSESSMENT COMPLETE PER FLOW SHEET. VSS. NO NEW CHANGES WILL CONTINUE TO MONITOR
--- NOTE | 2018-07-06 13:00 | NUR ---
RECEIVED PATIENT AT THIS TIME. PT IS SUPINE IN BED WITH PRESENT AT THE BEDSIDE. UPDATE TO GIVEN. ASSESSMENT COMPLETE AT THIS TIME. PATIENT VSS, WILL MONITOR CLOSELY.
--- NOTE | 2018-07-06 13:05 | NUR ---
REPORT GIVEN TO KERRI FARIAS STATED UNDERSTANDING. VSS. NO NEW CHANGES WILL CONTINUE TO MONITOR
--- NOTE | 2018-07-06 13:10 | NUR ---
DR RUIZ AT BEDSIDE. NO NEW CHANGES.
--- NOTE | 2018-07-06 14:40 | NUR ---
PATIENT TUBE FEEDING BAG CHANGED AT THIS TIME. BAG LABELED/DATED/INITIALED AT THIS TIME.
--- NOTE | 2018-07-06 15:00 | NUR ---
REASSESSMENT COMPELTE PER FLOWSHEET. VSS, WILL OCNTINUE TO MONITOR CLOSELY.
[2018-07-06 15:26] LABS: PROTEIN - BODY FLUID 3.9 G/DL
--- NOTE | 2018-07-06 16:25 | NUR ---
PATIENT NOW PRESENT AT THE BEDSIDE. UPDATE GIVEN. NO FURTHER QUESTIONS AT THIS TIME.
[2018-07-06 17:00] LABS: EOS BF 3 %; MACROPHAGES BF 6 %; MESOTHELIALS BF 5 %; NEUT - BF 73 %
[2018-07-07] VITALS (24 sets, daily range): BP systolic 107–136; BP diastolic 64–92
[2018-07-07 04:28] LABS: BASOPHILS 0.3 % (0-2); EOSINOPHILS 2.1 % (0-7); HEMOGLOBIN 9.7 g/dL (13.5-17.5); IMMATURE GRANULOCYTES 1.8 % (0-5); LYMPHOCYTES 14.5 % (15-50); MCH 28.5 pg (26.0-34.0); MCHC 31.3 g/dL (31.0-37.0); MCV 91.2 fL (80.0-100.0); MEAN PLATELET VOLUME 10.1 fL (7.4-10.4); MONOCYTES 14.2 % (2-11); NEUTROPHILS 67.1 % (40-80); PLATELET COUNT 217 10x3/uL (130-400); WBC 6.7 10x3/uL (4.8-10.8)
[2018-07-07 04:48] LABS: ALKALINE PHOSPHATASE 189 U/L (46-116); ALT (SGPT) 45 U/L (10-68); BILIRUBIN - TOTAL 3.46 mg/dL (0.2-1.3); CALC OSMOLALITY 282 mosm/kg (275-300); CALCIUM 8.7 mg/dL (8.5-10.1); CHLORIDE - SERUM 99 mmol/L (98-107); CREATININE - SERUM 0.7 mg/dL (0.6-1.3); GLUCOSE 126 mg/dL (74-106); SODIUM 140 mmol/L (136-145); UREA NITROGEN 18 mg/dL (7-18); eGFR NON AFRICAN AMERICAN > 90 mL/min (90-120)
[2018-07-07 04:51] LABS: POTASSIUM - SERUM 3.4 mmol/L (3.5-5.1)
--- NOTE | 2018-07-07 07:30 | NUR ---
REPORT RECIEVED, SHIFT ASSESSMENT COMPLETE, PT IS ON THE VENT, AROUSES TO VOICE, EDEMA NOTED IN ALL EXTREMETIES, ALL PPP, VSS, WILL CON'T TO MONITOR
--- NOTE | 2018-07-07 09:00 | NUR ---
COMPLETE BATH AND LINEN CHANGE,
--- NOTE | 2018-07-07 10:38 | NUR ---
Nutrition follow-up: Pt with trach, vent Pulmocare infusing @ 60 ml/hr via PEG tube Labs reviewed Wt: 215# Tolerating TF at this time. RDN following.
--- NOTE | 2018-07-07 11:42 | NUR ---
REASSESSMENT COMPLETE PER FLOW SHEET. VSS. ORAL ENDOTRACH CARE ADM. REOPSITIONED ON R SIDE. WILL CONTINUE TO MONITOR
--- NOTE | 2018-07-07 11:45 | NUR ---
REASSESSMENT COMPLETED, SEE FLOW SHEET. WILL CONTINUE TO OBSERVE.
--- NOTE | 2018-07-07 12:48 | MORECARE ---
CASE MANAGEMENT DISCHARGE SUMMARY PATIENT: TEE MEYERS UNIT: [id number] ADM DATE: 06/15/18 AGE: 68 : 51 SEX: M ROOM/BED: D.2307 AUTHOR: ESTELLE,DOC PHYSICIAN: REFERRING PHYSICIAN: DUNG MELENDEZ MD DATE OF SERVICE: 07/07/18 Discharge Plan Patient Name: TEE MEYERS Facility: [facility]:[place] : 1950 Planned Disposition: Home or Self Care Anticipated Discharge Date: Discharge Date: Expected LOS: Initial Reviewer: [email or web address] Initial Review Date: 06/15/2018 Generated: 07/07/18 1:48 pm Comments DCP- Discharge Planning Updated by [email or web address]: Barbara Priest on 07/07/18 11:[address] CM received notice for LTACH eval. CM spoke with patients spouse (Kirstin) and gave her a list of LTACH facilities within the formerly [facility]. Kirstin stated that they live in [place] and would have to see which facility might be closer. She stated she would get back with CM regarding choice of facility. CM will continue to follow and assist with discharge planning / needs. DCP- Discharge Planning Updated by [email or web address]: Barbara Priest on 06/16/18 1:[address] Patient Name: TEE MEYERS Admission Status: Elective Accout number: [id number] Admission Date: 06-15-2018 : 1950 Admission Diagnosis: Attending: DUNG MELENDEZ Current LOS: 1 Anticipated DC Date: Planned Disposition: Home or Self Care Primary Insurance: MEDICARE A & B Discharge Planning Comments: CM met with spouse at bedside patient is currently on ventilator. Kirstin Meyers spouse. Plans to return home with his . Denies any discharge needs at this time. CM will continue to follow and assist as needed with discharge planning / needs. Linter Operator: Barbara Priest DCPIA - Discharge Planning Initial Assessment Updated by [email or web address]: Barbara Priest on 06/16/18 2:44 pm * Is the patient Alert and Oriented? Yes * How many steps to enter\exit or inside your home? * PCP Maxim Lozada * Pharmacy [place] * Preadmission Environment Home with Family * ADLs Independent * Equipment Oxygen * List name and contact numbers for known caregivers / representatives who currently or will assist patient after discharge: Amando Meyers son [phone] * Verbal permission to speak to the caregivers and representatives has been obtained from the patient. N/A * Community resources currently utilized None * Additional services required to return to the preadmission environment? No * Can the patient safely return to the preadmission environment? Yes * Has this patient been hospitalized within the prior 30 days at any hospital? No Last DP export: 06/16/18 1:54 Patient Name: TEE MEYERS Page [id number] at 1248 All edits/amendments must be made on the electronic document DICTATION DATE: 07/07/181246 MACHINE MAINTENANCE REPAIRER: LAURIE 07/07/181246 RPT#: [id number] DC DATE: STATUS: ADM IN [facility] [address] [place] [address] END OF REPORT
--- NOTE | 2018-07-07 12:57 | MORECARE ---
CASE MANAGEMENT DISCHARGE SUMMARY PATIENT: TEE MEYERS UNIT: [id number] ADM DATE: 06/15/18 AGE: 68 : 51 SEX: M ROOM/BED: D.2307 AUTHOR: ESTELLE,DOC PHYSICIAN: REFERRING PHYSICIAN: DUNG MELENDEZ MD DATE OF SERVICE: 07/07/18 Discharge Plan Patient Name: TEE MEYERS Facility: [facility]:[place] : 1950 Planned Disposition: Home or Self Care Anticipated Discharge Date: Discharge Date: Expected LOS: Initial Reviewer: [email or web address] Initial Review Date: 06/15/2018 Generated: 07/07/18 1:57 pm Comments DCP- Discharge Planning Updated by [email or web address]: Barbara Priest on 07/07/18 11:[address] CM received notice for LTACH eval. CM spoke with patients spouse (Kirstin) and gave her a list of LTACH facilities within the [facility]. Kirstin stated that they live in [place] and would have to see which facility might be closer. She stated she would get back with CM regarding choice of facility. CM will continue to follow and assist with discharge planning / needs. DCP- Discharge Planning Updated by [email or web address]: Barbara Priest on 06/16/18 1:[address] Patient Name: TEE MEYERS Admission Status: Elective Accout number: [id number] Admission Date: 06-15-2018 : 1950 Admission Diagnosis: Attending: DUNG MELENDEZ Current LOS: 1 Anticipated DC Date: Planned Disposition: Home or Self Care Primary Insurance: MEDICARE A & B Discharge Planning Comments: CM met with spouse at bedside patient is currently on ventilator. Kirstin Meyers spouse. Plans to return home with his . Denies any discharge needs at this time. CM will continue to follow and assist as needed with discharge planning / needs. Director Of Ancillary Services: Barbara Priest DCPIA - Discharge Planning Initial Assessment Updated by [email or web address]: Barbara Priest on 06/16/18 2:44 pm * Is the patient Alert and Oriented? Yes * How many steps to enter\exit or inside your home? * PCP Maxim Lozada * Pharmacy [place] * Preadmission Environment Home with Family * ADLs Independent * Equipment Oxygen * List name and contact numbers for known caregivers / representatives who currently or will assist patient after discharge: Amando Meyers son [phone] * Verbal permission to speak to the caregivers and representatives has been obtained from the patient. N/A * Community resources currently utilized None * Additional services required to return to the preadmission environment? No * Can the patient safely return to the preadmission environment? Yes * Has this patient been hospitalized within the prior 30 days at any hospital? No Last DP export: 06/16/18 1:54 Patient Name: TEE MEYERS Page [id number] at 1257 All edits/amendments must be made on the electronic document DICTATION DATE: 07/07/18 1257 PERFECT BINDER OPERATOR: LAURIE 07/07/18 1257 RPT#: [id number] DC DATE: STATUS: ADM IN [facility] [address] [place] [address] END OF REPORT
--- NOTE | 2018-07-07 13:00 | NUR ---
RECEIVED PATIENT AT THIS TIME. PT SUPINE IN BED WITH PT PRESENT AT THE BEDSIDE. WHITE BOARD UPDATED WITH RN NAME AND CURRENT DATE. VSS, WILL MONITOR CLOSELY.
[2018-07-07 13:20] LABS: FUNGUS STAIN Final report (())
--- NOTE | 2018-07-07 13:20 | NUR ---
PATIENT SWITCHED TO CPAP TRIALS AT THIS TIME. WILL CONTINUE TO MONITOR PT CLOSELY.
--- NOTE | 2018-07-07 15:00 | NUR ---
REASSESSMENT COMPLETE PER FLOWSHEET. PT PRESENT AT THE BEDSIDE. PATIENT STILL ON CPAP AND TOLERATING WELL. VSS, WILL CONTINUE TO MONITOR.
--- NOTE | 2018-07-07 16:15 | MORECARE ---
CASE MANAGEMENT DISCHARGE SUMMARY PATIENT: TEE MEYERS UNIT: [id number] ADM DATE: 06/15/18 AGE: 68 : 51 SEX: M ROOM/BED: D.2307 AUTHOR: ESTELLE,DOC PHYSICIAN: REFERRING PHYSICIAN: DUNG MELENDEZ MD DATE OF SERVICE: 07/07/18 Discharge Plan Patient Name: TEE MEYERS Facility: [facility]:[place] : 1950 Planned Disposition: Home or Self Care Anticipated Discharge Date: Discharge Date: Expected LOS: Initial Reviewer: [email or web address] Initial Review Date: 06/15/2018 Generated: 07/07/18 5:14 pm Comments DCP- Discharge Planning Updated by [email or web address]: Barbara Priest on 07/07/18 11:[address] CM received notice for LTACH eval. CM spoke with patients spouse (Kirstin) and gave her a list of LTACH facilities within the [facility]. Kirstin stated that they live in [place] and would have to see which facility might be closer. She stated she would get back with CM regarding choice of facility. CM will continue to follow and assist with discharge planning / needs. DCP- Discharge Planning Updated by [email or web address]: Barbara Priest on 06/16/18 1:[address] Patient Name: TEE MEYERS Admission Status: Elective Accout number: [id number] Admission Date: 06-15-2018 : 1950 Admission Diagnosis: Attending: DUNG MELENDEZ Current LOS: 1 Anticipated DC Date: Planned Disposition: Home or Self Care Primary Insurance: MEDICARE A & B Discharge Planning Comments: CM met with spouse at bedside patient is currently on ventilator. Kirstin Meyers spouse. Plans to return home with his . Denies any discharge needs at this time. CM will continue to follow and assist as needed with discharge planning / needs. Senior Director Creative Services: Barbara Priest DCPIA - Discharge Planning Initial Assessment Updated by [email or web address]: Barbara Priest on 06/16/18 2:44 pm * Is the patient Alert and Oriented? Yes * How many steps to enter\exit or inside your home? * PCP Maxim Lozada * Pharmacy [place] * Preadmission Environment Home with Family * ADLs Independent * Equipment Oxygen * List name and contact numbers for known caregivers / representatives who currently or will assist patient after discharge: Amando Meyers son [phone] * Verbal permission to speak to the caregivers and representatives has been obtained from the patient. N/A * Community resources currently utilized None * Additional services required to return to the preadmission environment? No * Can the patient safely return to the preadmission environment? Yes * Has this patient been hospitalized within the prior 30 days at any hospital? No External Providers External Provider: Sharon Sanders [facility] Next Contact Date: Service Request Date: Service Type: Resolution: Reviewer: Comments: Last DP export: 07/07/18 11:57 am Patient Name: TEE MEYERS Page 69506 at 1615 All edits/amendments must be made on the electronic document DICTATION DATE: 07/07/181613 [employer]: LAURIE 07/07/181613 RPT#: [id number] DC DATE: STATUS: ADM IN [facility] [address] [place] [address] END OF REPORT
[2018-07-07 16:17] LABS: ACID FAST SMEAR Negative (()); AFB SPECIMEN PROCESSING Not Indicated (())
--- NOTE | 2018-07-07 19:20 | NUR ---
PT RECEIVED WITH EYES OPEN ON VENT SPONT VIA TRACH. PT TOLERATING WELL. DENIES PAIN. NO S/S OF DISTRESS. MIKE PATENT. WILL CONTINUE TO OBSERVE.
--- NOTE | 2018-07-07 20:41 | NUR ---
PT WITH EYES OPEN RESPIRATORY AT BEDSIDE. WILL CONTINUE TO OBSERVE.
[2018-07-08] VITALS (36 sets, daily range): BP systolic 94–138; BP diastolic 46–85
--- NOTE | 2018-07-08 | NUR ---
PT REASSESSMENT COMPLETED, SEE FLOW SHEET. PT APPEARS ANXIOUS WITH PRN ATIVAN GIVEN PER MAR. WILL CONTINUE TO OBSERVE.
--- NOTE | 2018-07-08 01:45 | NUR ---
PT REPOSITIONED, NO S/S OF DISTRESS. WILL CONTINUE TO OBSERVE.
--- NOTE | 2018-07-08 03:18 | NUR ---
PT WITH EYES CLOSED AND EASILY AWOKEN TO VERBAL STIMULI. REASSESSMENT COMPLETED, SEE FLOW SHEET.
[2018-07-08 04:33] LABS: HEMATOCRIT 30.5 % (42.0-54.0); HEMOGLOBIN 9.8 g/dL (13.5-17.5); LYMPHOCYTES 13.8 % (15-50); MCH 29.4 pg (26.0-34.0); MCHC 32.1 g/dL (31.0-37.0); MCV 91.6 fL (80.0-100.0); MEAN PLATELET VOLUME 9.6 fL (7.4-10.4); NEUTROPHILS 63.4 % (40-80); PLATELET COUNT 193 10x3/uL (130-400); RBC 3.33 10x6/uL (4.20-6.10); RDW 17.2 % (11.5-14.5)
[2018-07-08 04:48] LABS: ALBUMIN 3.1 g/dL (3.4-5.0); ALKALINE PHOSPHATASE 176 U/L (46-116); ALT (SGPT) 47 U/L (10-68); BILIRUBIN - TOTAL 3.67 mg/dL (0.2-1.3); CALC OSMOLALITY 276 mosm/kg (275-300); CALCIUM 8.4 mg/dL (8.5-10.1); CHLORIDE - SERUM 97 mmol/L (98-107); CREATININE - SERUM 0.6 mg/dL (0.6-1.3); GLUCOSE 118 mg/dL (74-106); POTASSIUM - SERUM 3.7 mmol/L (3.5-5.1); PROTEIN - SERUM 6.5 g/dL (6.4-8.2); SODIUM 137 mmol/L (136-145); UREA NITROGEN 18 mg/dL (7-18); eGFR NON AFRICAN AMERICAN > 90 mL/min (90-120)
--- NOTE | 2018-07-08 05:25 | NUR ---
PT WITH EYES CLOSED AND CHEST RISING. NO S/S OF PAIN OR DISTRESS. WILL CONTINUE TO OBSERVE.
--- NOTE | 2018-07-08 07:00 | NUR ---
BEDSIDE SHIFT REPORT COMPLETE AT THIS TIME. PATIENT RECEIVED. SHIFT ASSESSMENT COMPLETE PER FLOWSHEET. VSS, WILL CONTINUE TO MONITOR CLOSELY.
--- NOTE | 2018-07-08 09:15 | NUR ---
PT TURNED AND REPOSITIONED FOR COMFORT AT THIS TIME. HIPS BRIDGED WITH A PILLOW. PT RESTING COMFORTABLY WITH EYES OPEN IN BED. VSS, WILL CONTINUE TO MONITOR CLOSELY.
--- NOTE | 2018-07-08 10:12 | MORECARE ---
CASE MANAGEMENT DISCHARGE SUMMARY PATIENT: TEE MEYERS UNIT: [id number] ADM DATE: 06/15/18 AGE: 68 : 51 SEX: M ROOM/BED: D.2307 AUTHOR: ESTELLEDOC PHYSICIAN: REFERRING PHYSICIAN: DUNG MELENDEZ MD DATE OF SERVICE: 07/08/18 Discharge Plan Patient Name: TEE MEYERS Facility: [facility]:[place] : 1950 Planned Disposition: Home or Self Care Anticipated Discharge Date: Discharge Date: Expected LOS: Initial Reviewer: [email or web address] Initial Review Date: 06/15/2018 Generated: 07/08/18 11:11 am Comments DCP- Discharge Planning Updated by [email or web address]: Barbara Priest on 07/08/18 9:[address] Late Entry 07/07/18 @ 1620 Patient decided on LTACH [facility] in [place]. CM called facility and faxed over records. CM will continue to follow and assist with discharge planning / needs DCP- Discharge Planning Updated by [email or web address]: Barbara Priest on 07/07/18 11:[address] CM received notice for LTACH eval. CM spoke with patients spouse (Kirstin) and gave her a list of LTACH facilities within the formerly [facility]. Kirstin stated that they live in [place] and would have to see which facility might be closer. She stated she would get back with CM regarding choice of facility. CM will continue to follow and assist with discharge planning / needs. DCP- Discharge Planning Updated by [email or web address]: Barbara Priest on 06/16/18 1:[address] Patient Name: TEE MEYERS Admission Status: Elective Accout number: [id number] Admission Date: 06-15-2018 : 1950 Admission Diagnosis: Attending: DUNG MELENDEZ Current LOS: 1 Anticipated DC Date: Planned Disposition: Home or Self Care Primary Insurance: MEDICARE A & B Discharge Planning Comments: CM met with spouse at bedside patient is currently on ventilator. Kirstin Meyers spouse. Plans to return home with his . Denies any discharge needs at this time. CM will continue to follow and assist as needed with discharge planning / needs. Plane Captain: Barbara Priest DCPIA - Discharge Planning Initial Assessment Updated by [email or web address]: Barbara Priest on 06/16/18 2:44 pm * Is the patient Alert and Oriented? Yes * How many steps to enter\exit or inside your home? * PCP Maxim Lozada * Pharmacy [place] * Preadmission Environment Home with Family * ADLs Independent * Equipment Oxygen * List name and contact numbers for known caregivers / representatives who currently or will assist patient after discharge: Amando Meyers son [phone] * Verbal permission to speak to the caregivers and representatives has been obtained from the patient. N/A * Community resources currently utilized None * Additional services required to return to the preadmission environment? No * Can the patient safely return to the preadmission environment? Yes * Has this patient been hospitalized within the prior 30 days at any hospital? No Last DP export: 07/07/18 3:14 pm Patient Name: TEE MEYERS Page 38567 at 1012 All edits/amendments must be made on the electronic document DICTATION DATE: 07/08/18 1011 PSYCHOLOGIST: LAURIE 07/08/18 1011 RPT#: [id number] DC DATE: STATUS: ADM IN [facility] [address] [place] [address] END OF REPORT
--- NOTE | 2018-07-08 10:20 | MORECARE ---
CASE MANAGEMENT DISCHARGE SUMMARY PATIENT: TEE MEYERS UNIT: [id number] ADM DATE: 06/15/18 AGE: 68 : 51 SEX: M ROOM/BED: D.2307 AUTHOR: ESTELLE,DOC PHYSICIAN: REFERRING PHYSICIAN: DUNG MELENDEZ MD DATE OF SERVICE: 07/08/18 Discharge Plan Patient Name: TEE MEYERS Facility: [facility]:[place] : 1950 Planned Disposition: Home or Self Care Anticipated Discharge Date: Discharge Date: Expected LOS: Initial Reviewer: [email or web address] Initial Review Date: 06/15/2018 Generated: 07/08/18 11:20 am Comments DCP- Discharge Planning Updated by [email or web address]: Barbara Priest on 07/08/18 9:[address] CM received a call from Aurelio from [facility] this am. Aurelio stated she would be over later to evaluate. CM will continue to follow and assist as needed with discharge planning. DCP- Discharge Planning Updated by [email or web address]: Barbara Priest on 07/08/18 9:[address] Late Entry 07/07/18 @ 1620 Patient decided on LTACH [facility] in [place]. CM called facility and faxed over records. CM will continue to follow and assist with discharge planning / needs DCP- Discharge Planning Updated by [email or web address]: Barbara Priest on 07/07/18 11:[address] CM received notice for LTACH eval. CM spoke with patients spouse (Kirstin) and gave her a list of LTACH facilities within the state. Kirstin stated that they live in [place] and would have to see which facility might be closer. She stated she would get back with CM regarding choice of facility. CM will continue to follow and assist with discharge planning / needs. DCP- Discharge Planning Updated by [email or web address]: Barbara Priest on 06/16/18 1:[address] Patient Name: TEE MEYERS Admission Status: Elective Accout number: [id number] Admission Date: 06-15-2018 : 1950 Admission Diagnosis: Attending: DUNG MELENDEZ Current LOS: 1 Anticipated DC Date: Planned Disposition: Home or Self Care Primary Insurance: MEDICARE A & B Discharge Planning Comments: CM met with spouse at bedside patient is currently on ventilator. Kirstin Meyers spouse. Plans to return home with his . Denies any discharge needs at this time. CM will continue to follow and assist as needed with discharge planning / needs. Storeroom Keeper: Barbara Priest DCPIA - Discharge Planning Initial Assessment Updated by [email or web address]: Barbara Priest on 06/16/18 2:44 pm * Is the patient Alert and Oriented? Yes * How many steps to enter\exit or inside your home? * PCP Maxim Lozada * Pharmacy [facility] * Preadmission Environment Home with Family * ADLs Independent * Equipment Oxygen * List name and contact numbers for known caregivers / representatives who currently or will assist patient after discharge: Amando Meyers son [phone] * Verbal permission to speak to the caregivers and representatives has been obtained from the patient. N/A * Community resources currently utilized None * Additional services required to return to the preadmission environment? No * Can the patient safely return to the preadmission environment? Yes * Has this patient been hospitalized within the prior 30 days at any hospital? No Last DP export: 07/08/18 9:12 a Patient Name: TEE MEYERS Page 13012 at 1020 All edits/amendments must be made on the electronic document DICTATION DATE: 07/08/18 1019 ENTRY ANALYST: LAURIE 07/08/18 1019 RPT#: [id number] DC DATE: STATUS: ADM IN [facility] [address] [place] [address] END OF REPORT
--- NOTE | 2018-07-08 11:00 | NUR ---
REASSESSMENT COMPLETE PER FLOWSHEET. NO ACUTE CHANGES NOTED AT THIS TIME. VSS, WILL CONTINUE TO MONITOR CLOSELY.
--- NOTE | 2018-07-08 13:00 | NUR ---
PT TURNED AND REPOSITIONED FOR COMFORT AT THIS TIME. PT TOLERATED WELL. VSS, WILL CONTINUE TO MONITOR CLOSELY.
--- NOTE | 2018-07-08 15:00 | NUR ---
REASSESSMENT COMPLETE PER FLOWSHEET. NO ACUTE CHANGES NOTED AT THIS TIME. VSS, WILL CONTINUE TO MONITOR CLOSELY.
--- NOTE | 2018-07-08 15:55 | MORECARE ---
CASE MANAGEMENT DISCHARGE SUMMARY PATIENT: TEE MEYERS UNIT: [id number] ADM DATE: 06/15/18 AGE: 68 : 51 SEX: M ROOM/BED: D.2307 AUTHOR: ESTELLE,DOC PHYSICIAN: REFERRING PHYSICIAN: DUNG MELENDEZ MD DATE OF SERVICE: 07/08/18 Discharge Plan Patient Name: TEE MEYERS Facility: [facility]:[place] : 1950 Planned Disposition: Home or Self Care Anticipated Discharge Date: Discharge Date: Expected LOS: Initial Reviewer: [email or web address] Initial Review Date: 06/15/2018 Generated: 07/08/18 4:55 pm Comments DCP- Discharge Planning Updated by [email or web address]: Barbara Priest on 07/08/18 2:[address] CM met with Aurelio with [facility] earlier today. She stated that patient seems appropriate for LTACH. She stated she would run his days/ insurance. She did state that they currently didn't have a bed available but would let us know as soon as one is available. CM will continue to follow and assist with discharge planning / needs. DCP- Discharge Planning Updated by [id number]: Barbara Priest on 07/08/18 9:[address] CM received a call from Aurelio from [facility] this am. Aurelio stated she would be over later to evaluate. CM will continue to follow and assist as needed with discharge planning. DCP- Discharge Planning Updated by [email or web address]: Barbara Priest on 07/08/18 9:[address] Late Entry 07/07/18 @ 1620 Patient decided on LTACH in [place]. CM called facility and faxed over records. CM will continue to follow and assist with discharge planning / needs DCP- Discharge Planning Updated by [email or web address]: Barbara Priest on 07/07/18 11:[address] CM received notice for LTACH eval. NIRAJ spoke with patients spouse (Kirstin) and gave her a list of LTACH facilities within the [facility]. Kirstin stated that they live in [place] and would have to see which facility might be closer. She stated she would get back with CM regarding choice of facility. CM will continue to follow and assist with discharge planning / needs. DCP- Discharge Planning Updated by [email or web address]: Barbara Priest on 06/16/18 1:[address] Patient Name: TEE MEYERS Admission Status: Elective Accout number: [id number] Admission Date: 06-15-2018 : 1950 Admission Diagnosis: Attending: DUNG MELENDEZ Current LOS: 1 Anticipated DC Date: Planned Disposition: Home or Self Care Primary Insurance: MEDICARE A & B Discharge Planning Comments: CM met with spouse at bedside patient is currently on ventilator. Kirstin Meyers spouse. Plans to return home with his . Denies any discharge needs at this time. CM will continue to follow and assist as needed with discharge planning / needs. Spareribs Trimmer: Barbara Priest DCPIA - Discharge Planning Initial Assessment Updated by [email or web address]: Barbara Cem on 06/16/18 2:44 pm * Is the patient Alert and Oriented? Yes * How many steps to enter\exit or inside your home? * PCP Maxim Lozada * Pharmacy [place] * Preadmission Environment Home with Family * ADLs Independent * Equipment Oxygen * List name and contact numbers for known caregivers / representatives who currently or will assist patient after discharge: Amando Meyers son [phone] * Verbal permission to speak to the caregivers and representatives has been obtained from the patient. N/A * Community resources currently utilized None * Additional services required to return to the preadmission environment? No * Can the patient safely return to the preadmission environment? Yes * Has this patient been hospitalized within the prior 30 days at any hospital? No Last DP export: 07/08/18 9:20 a Patient Name: TEE MEYERS Page [id number] at 1555 All edits/amendments must be made on the electronic document DICTATION DATE: 07/08/181554 PICKER MACHINE OPERATOR: LAURIE 07/08/181554 RPT#: [id number] DC DATE: STATUS: ADM IN [facility] [address] [place] [address] END OF REPORT
--- NOTE | 2018-07-08 16:30 | NUR ---
ALL IV TUBING AND BAGS CHANGED AT THIS TIME. PT TUBE FEEDING BAG CHANGED AND LABELED AT THIS TIME. PT RESTING COMFORTABLY. VSS, WILL CONTINUE TO MONITOR CLOSELY.
--- NOTE | 2018-07-08 16:51 | NUR ---
PT GIVEN TOTAL BEDBATH AND COMPLETE LINEN CHANGE.
--- NOTE | 2018-07-08 19:00 | NUR ---
RECEIVED PATIENT FROM DAY SHIFT RN. AWAKE AND ALERT, FOLLOWS COMMANDS AT TIMES. INITIAL SHIFT ASSESSMENT COMPLETED, SEE FLOWSHEET. WILL MONITOR CLOSELY THROUGH OUT THE NIGHT.
--- NOTE | 2018-07-08 21:00 | NUR ---
PM MEDS GIVEN PER MD ORDERS, SEE MAR. VSS. PATIENT LEG SEEN HANGING OUT THE BED, REPOSITIONED FOR COMFORT. WILL CTM.
--- NOTE | 2018-07-08 23:00 | NUR ---
SHIFT REASSESSMENT COMPLETED, SEE FLOWSHEET. VSS. WILL CTM.
[2018-07-09] VITALS (24 sets, daily range): BP systolic 100–161; BP diastolic 70–113
--- NOTE | 2018-07-09 01:00 | NUR ---
PATIENT APPEARS TO BE RESTING COMFORTABLY. NO ACUTE CHANGES NOTED AT THIS TIME. VSS. WILL CTM.
[2018-07-09 02:50] LABS: ALBUMIN 3.2 g/dL (3.4-5.0); ALKALINE PHOSPHATASE 167 U/L (46-116); ALT (SGPT) 41 U/L (10-68); BILIRUBIN - TOTAL 3.59 mg/dL (0.2-1.3); CALC OSMOLALITY 272 mosm/kg (275-300); CALCIUM 8.7 mg/dL (8.5-10.1); CARBON DIOXIDE 32.7 mmol/L (21.0-32.0); CHLORIDE - SERUM 96 mmol/L (98-107); CREATININE - SERUM 0.6 mg/dL (0.6-1.3); GLUCOSE 120 mg/dL (74-106); POTASSIUM - SERUM 3.5 mmol/L (3.5-5.1); PROTEIN - SERUM 7.1 g/dL (6.4-8.2); SODIUM 135 mmol/L (136-145); UREA NITROGEN 17 mg/dL (7-18); eGFR NON AFRICAN AMERICAN > 90 mL/min (90-120)
[2018-07-09 02:52] LABS: BASOPHILS 0.4 % (0-2); EOSINOPHILS 2.3 % (0-7); HEMATOCRIT 30.6 % (42.0-54.0); HEMOGLOBIN 9.7 g/dL (13.5-17.5); LYMPHOCYTES 18.5 % (15-50); MCH 28.9 pg (26.0-34.0); MCHC 31.7 g/dL (31.0-37.0); MCV 91.1 fL (80.0-100.0); MEAN PLATELET VOLUME 10.7 fL (7.4-10.4); MONOCYTES 19.6 % (2-11); NEUTROPHILS 58.2 % (40-80); PLATELET COUNT 209 10x3/uL (130-400); RBC 3.36 10x6/uL (4.20-6.10); RDW 17.3 % (11.5-14.5); WBC 7.3 10x3/uL (4.8-10.8)
--- NOTE | 2018-07-09 03:00 | NUR ---
SHIFT REASSESSMENT COMPLETED, SEE FLOWSHEET. VSS. NO CHANGE. WILL CTM.
--- NOTE | 2018-07-09 07:00 | NUR ---
BEDSIDE SHIFT REPORT COMPLETE AT THIS TIME. RECEIVED PATIENT. SHIFT ASSESSMENT COMPLETE PER FLOWSHEET. PT RESTING COMFORTABLY IN BED. VSS, WILL MONITOR CLOSELY.
--- NOTE | 2018-07-09 09:02 | NUR ---
PT TURNED AND REPOSITIONED FOR COMFORT AT THIS TIME. TELEVISION TURNED ON FOR PT. RESTING COMFORTABLY. VSS, WILL CONTINUE TO MONITOR CLOSELY.
--- NOTE | 2018-07-09 10:35 | NUR ---
Nutrition follow-up: Continues trach to vent Pulmocare infusing @ 60 ml/hr; pt tolerating at this time. Wt: 223# Labs reviewed RDN following.
--- NOTE | 2018-07-09 11:00 | NUR ---
REASSESSMENT COMPLETE PER FLOWSHEET. NO ACUTE CHANGES NOTED AT THIS TIME. PATIENT TOLERATING CPAP TRIALS WITH NO SIGNS OF DISTRESS. WILL CONTINUE TO MONITOR CLOSELY.
--- NOTE | 2018-07-09 12:30 | NUR ---
PATIENT , EDGAR, PRESENT AT THE BEDSIDE. UPDATE GIVEN. DENIES ANY FURTHER QUESTIONS. PT RESTING COMFORTABLY IN BED. VSS, WILL CONTINUE TO MONITOR CLOSELY
--- NOTE | 2018-07-09 15:00 | NUR ---
REASSESSMENT COMPLETE PER FLOWSHEET. NO ACUTE CHANGES NOTED. VSS, WILL CONTINUE TO MONITOR CLOSELY.
--- NOTE | 2018-07-09 18:05 | NUR ---
PT PRESENT AT THE BEDSIDE. UPDATE GIVEN. DENIES ANY FURTHER QUESTIONS. VSS, WILL MONITOR CLOSELY.
[2018-07-10] VITALS (23 sets, daily range): BP systolic 104–180; BP diastolic 62–97
[2018-07-10 04:33] LABS: BASOPHILS 0.2 % (0-2); EOSINOPHILS 0.4 % (0-7); HEMATOCRIT 28.9 % (42.0-54.0); HEMOGLOBIN 9.3 g/dL (13.5-17.5); IMMATURE GRANULOCYTES 0.9 % (0-5); MCH 29.2 pg (26.0-34.0); MCHC 32.2 g/dL (31.0-37.0); MCV 90.6 fL (80.0-100.0); MEAN PLATELET VOLUME 10.3 fL (7.4-10.4); MONOCYTES 19.4 % (2-11); NEUTROPHILS 70.1 % (40-80); PLATELET COUNT 187 10x3/uL (130-400); RBC 3.19 10x6/uL (4.20-6.10); RDW 17.2 % (11.5-14.5)
[2018-07-10 04:40] LABS: WBC 10.2 10x3/uL (4.8-10.8)
[2018-07-10 04:54] LABS: ALBUMIN 3.1 g/dL (3.4-5.0); ALKALINE PHOSPHATASE 171 U/L (46-116); ALT (SGPT) 45 U/L (10-68); BILIRUBIN - TOTAL 4.32 mg/dL (0.2-1.3); CALC OSMOLALITY 270 mosm/kg (275-300); CALCIUM 8.9 mg/dL (8.5-10.1); CARBON DIOXIDE 30.1 mmol/L (21.0-32.0); CHLORIDE - SERUM 95 mmol/L (98-107); CREATININE - SERUM 0.6 mg/dL (0.6-1.3); GLUCOSE 139 mg/dL (74-106); POTASSIUM - SERUM 3.9 mmol/L (3.5-5.1); PROTEIN - SERUM 7.1 g/dL (6.4-8.2); SODIUM 133 mmol/L (136-145); UREA NITROGEN 21 mg/dL (7-18); eGFR NON AFRICAN AMERICAN > 90 mL/min (90-120)
--- NOTE | 2018-07-10 07:22 | NUR ---
NO ACUTE DISTRESS NOTED AT THIS TIME. PT UP IN BED AWAKE. FOLLOWS COMMANDS. ABLE TO ANSWER YES AND NO QUESTIONS. TURNED Q2H. WILL CONTINUE PLAN OF CARE.
--- NOTE | 2018-07-10 09:23 | NUR ---
RESIDUALS NOTED AT 170ML PER PEG.
--- NOTE | 2018-07-10 11:23 | NUR ---
NO ACUTE DISTRESS NOTED. NO CHANGE. PT TURNED Q2H. WILL CONTINUE PLAN OF CARE.
--- NOTE | 2018-07-10 13:00 | NUR ---
LYING IN BED ON VENT VIA TRACHCOLLAR AT THIS TIME. NO ACUTE DISTERSS NOTED. PT TURNED Q2H. WILL CONTINUE PLAN OF CARE.
--- NOTE | 2018-07-10 15:24 | NUR ---
FAMILY AT BEDSIDE. NO ACUTE DISTRESS NOTED. PT NODDED HEAD TO STATE COMFORT. TURNED Q2H. WILL CONTINUE PLAN OF CARE.
--- NOTE | 2018-07-10 17:21 | NUR ---
INCONTINENT BOWEL MOVEMENT NOTED. TOTAL LINEN CHANGE PROVIDED ALONG WITH NATHANAEL CARE AND MCKEON CARE. NO ACUTE DISTRESS NOTED. FAMILY AT BEDSIDE. WILL CONTINUE PLAN OF CARE.
--- NOTE | 2018-07-10 19:00 | NUR ---
RECEIVED PATIENT FROM DAY SHIFT RN. AWAKE AND ALERT, FOLLOWS COMMANDS INTERMITTENLY. INITIAL SHIFT ASSESSMENT COMPLETED, SEE FLOWSHEET. VSS. WILL MONITOR CLOSELY THROUGH OUT THE NIGHT.
--- NOTE | 2018-07-10 21:00 | NUR ---
PM MEDS GIVEN PER MD ORDERS, SEE MAR. PATIENT FOUND IN LARGE BROWN INCONTINENT STOOL. COMPLETE BATH AND LINEN CHANGE GIVEN. VSS. WILL CTM.
--- NOTE | 2018-07-10 23:00 | NUR ---
NO ACUTE CHANGES NOTED. VSS. PATIENT APPEARS TO BE RESTING COMFORTABLY. WILL CTM.
[2018-07-11] VITALS (22 sets, daily range): BP systolic 94–158; BP diastolic 62–105
--- NOTE | 2018-07-11 01:14 | NUR ---
PATIENT APPEARS TO BE RESTING COMFORTABLY. NO ACUTE CHANGES NOTED. VSS. WILL CTM.
--- NOTE | 2018-07-11 03:00 | NUR ---
PATIENT APPEARS TO BE RESTING COMFORTABLY. VSS. SHIFT REASSESSMENT COMPLETE, SEE FLOWSHEET. WILL CTM.
--- NOTE | 2018-07-11 05:00 | NUR ---
NO CHANGES NOTED AT THIS TIME. VSS. WILL CTM.
--- NOTE | 2018-07-11 07:51 | NUR ---
UP IN BED AWAKE AT THIS TIME. PT FOLLOWS COMMANDS. NO ACUTE DISTRESS NOTED. WILL CONTINUE PLAN OF CARE.
--- NOTE | 2018-07-11 09:52 | NUR ---
FAMILY AT BEDSIDE. AT THIS TIME. NO ACUTE DISTRESS NOTED. WILL CONTINUE PLAN FO CARE.
[2018-07-11 11:03] LABS: BASOPHILS 0.4 % (0-2); EOSINOPHILS 1.5 % (0-7); HEMATOCRIT 26.2 % (42.0-54.0); HEMOGLOBIN 8.3 g/dL (13.5-17.5); IMMATURE GRANULOCYTES 0.7 % (0-5); LYMPHOCYTES 11.7 % (15-50); MCH 28.8 pg (26.0-34.0); MCHC 31.7 g/dL (31.0-37.0); MEAN PLATELET VOLUME 10.2 fL (7.4-10.4); MONOCYTES 13.8 % (2-11); NEUTROPHILS 71.9 % (40-80); PLATELET COUNT 175 10x3/uL (130-400); RBC 2.88 10x6/uL (4.20-6.10); RDW 16.9 % (11.5-14.5); WBC 8.5 10x3/uL (4.8-10.8)
[2018-07-11 11:15] LABS: ALKALINE PHOSPHATASE 132 U/L (46-116); ALT (SGPT) 44 U/L (10-68); BILIRUBIN - TOTAL 3.48 mg/dL (0.2-1.3); CALC OSMOLALITY 268 mosm/kg (275-300); CALCIUM 8.3 mg/dL (8.5-10.1); CARBON DIOXIDE 33.4 mmol/L (21.0-32.0); CHLORIDE - SERUM 95 mmol/L (98-107); CREATININE - SERUM 0.6 mg/dL (0.6-1.3); GLUCOSE 127 mg/dL (74-106); POTASSIUM - SERUM 3.7 mmol/L (3.5-5.1); PROTEIN - SERUM 6.7 g/dL (6.4-8.2); SODIUM 132 mmol/L (136-145); UREA NITROGEN 19 mg/dL (7-18); eGFR NON AFRICAN AMERICAN > 90 mL/min (90-120)
--- NOTE | 2018-07-11 11:52 | NUR ---
AWAKE IN BED AT THIS TIME. PT TURNED Q2H. NO ACUTE DISTRESS NOTED. WILL CONTINUE PLAN OF CARE.
--- NOTE | 2018-07-11 13:53 | NUR ---
FAMILY AT BEDSIDE. UPDATES GIVEN. PT TURNED Q2H. WILL CONTINUE PLAN OF CARE.
--- NOTE | 2018-07-11 15:54 | NUR ---
BOWEL MOVEMENT NOTED AT THIS TIME, LARGE FORMED BROWN. TOTAL LINEN CHANGE PROVIDED ALONG WITH BED BATH. PT TURNED Q2H. NO ACUTE DISTRESS NOTED. WILL CONTINUE PLAN OF CARE.
--- NOTE | 2018-07-11 17:54 | NUR ---
RESIDUAL 25ML PER PEG.
--- NOTE | 2018-07-11 19:30 | NUR ---
REPORT RECEIVED, SHIFT ASSESSMENT COMPLETED PER FLOW SHEET, PT HAS TRACH ON VENT WITH SETTINGS PER ORDERS, RT UPPER ARM MIDLINE INFUSING MEDS PER AUG/ORDERS, PEG TUBE WITH PULMOCARE TF @60ML/HR WITH 25MLQHR H2O FLUSH, MCKEON TO GRAVITY DRAIN, ON ICU MONITORS, VSS, SCD'S ON LOWER EXTREMITIES, ON AIR BED, WILL CONTINUE TO ASSESS
--- NOTE | 2018-07-11 21:00 | NUR ---
MEDS GIVEN PER MAR/ORDERS, PT IN NO ACUTE DISTRESS, VSS, REPOSITIONED IN BED, PT AWAKE AND ALERT
--- NOTE | 2018-07-11 23:00 | NUR ---
REASSESSMENT COM[PLETE PER FLOW SHEET, PT HAD x1 SEMI-SOLID BM, PARTIAL BED BATH, COMP[LETE LINEN CHANGE, REPOSITIONED FOR COMFORT, VSS, WILL CONTINUE TO ASSESS
[2018-07-12] VITALS (23 sets, daily range): BP systolic 90–155; BP diastolic 58–99
--- NOTE | 2018-07-12 03:00 | NUR ---
REASSESSMENT COMPLETE, VSS, NO ACUTE CHANGE, PT RESTING WITH EYES CLOSED, NO S/S OF DISTRESS NOTED, WILL CONTINUE TO ASSESS
[2018-07-12 05:40] LABS: BASOPHILS 0.3 % (0-2); EOSINOPHILS 1.2 % (0-7); HEMATOCRIT 27.7 % (42.0-54.0); HEMOGLOBIN 8.7 g/dL (13.5-17.5); IMMATURE GRANULOCYTES 0.7 % (0-5); LYMPHOCYTES 7.5 % (15-50); MCH 28.8 pg (26.0-34.0); MCHC 31.4 g/dL (31.0-37.0); MCV 91.7 fL (80.0-100.0); MEAN PLATELET VOLUME 10.5 fL (7.4-10.4); MONOCYTES 13.7 % (2-11); NEUTROPHILS 76.6 % (40-80); PLATELET COUNT 191 10x3/uL (130-400); RBC 3.02 10x6/uL (4.20-6.10); RDW 16.8 % (11.5-14.5); WBC 9.2 10x3/uL (4.8-10.8)
[2018-07-12 06:00] LABS: ALKALINE PHOSPHATASE 138 U/L (46-116); ALT (SGPT) 48 U/L (10-68); BILIRUBIN - TOTAL 3.04 mg/dL (0.2-1.3); CALC OSMOLALITY 269 mosm/kg (275-300); CALCIUM 8.7 mg/dL (8.5-10.1); CARBON DIOXIDE 32.6 mmol/L (21.0-32.0); CHLORIDE - SERUM 95 mmol/L (98-107); CREATININE - SERUM 0.6 mg/dL (0.6-1.3); GLUCOSE 110 mg/dL (74-106); POTASSIUM - SERUM 3.9 mmol/L (3.5-5.1); PROTEIN - SERUM 6.9 g/dL (6.4-8.2); SODIUM 133 mmol/L (136-145); UREA NITROGEN 20 mg/dL (7-18); eGFR NON AFRICAN AMERICAN > 90 mL/min (90-120)
--- NOTE | 2018-07-12 09:55 | NUR ---
0700 PT RECIEVED ALERT, VSS, TRACH, ON VENT, R MIDLINE DRESSING CDI WITH D5 10ML/HR, PEG IN PLACE PULMOCARE INFUSING, MCKEON DRIANING BOUCHRA URINE, REPOSITIONED, ORAL CARE AMD MOUTH MOISTURIZER PROVIDED, CALL LIGHT WITHIN REACH, PT ABLE TO SHAKE HEAD YES AND NO, NO NEEDS, 0900 AM MEDS PROVIDED, NO VISITORS THIS AM
--- NOTE | 2018-07-12 10:05 | NUR ---
Nutrition follow-up: Trach; no sedation Pulmocare infusing @ 60 ml/hr; tolerating TF Labs reviewed Wt: 229# Per nursing request, TF order researched. TF ordered per Dr. Larkin 06/16/18 for goal rate of 40 ml/hr with propofol. Sedation off and TF goal rate increased to 55 ml/hr by RDN 06/25/18 with 25 ml H2O flush Q 25 ml/hr Recommend 55 ml/hr goal rate with 25 ml H2O flush Q hour. RDN following.
--- NOTE | 2018-07-12 12:54 | NUR ---
1100 REPOSITIONED 1245 BM NOTED, LINENS CHANGED AND BED BATH DONE
--- NOTE | 2018-07-12 13:06 | NUR ---
REPORT GIVEN TO SUSSY
--- NOTE | 2018-07-12 15:15 | NUR ---
REASSESSMENT COMPLETE, NO CHANGES NOTED, RESTING COMFORTABLY, VSS, WILL CON'T TO MONITOR
--- NOTE | 2018-07-12 17:15 | NUR ---
LG BM AT THIS TIME, PARTIAL BATH AND LINEN CHANGE
--- NOTE | 2018-07-12 20:00 | NUR ---
REPOSITIONED PT UP UN BED, COMPLETE LINEN CHANGE, SKIN ON COCCYX REDDENED WITH SMALL SORE NOTED IN CENTER OF RED AREA, CLEANED AREA AND ELEVATED SIDE WITH PILLOWS, PULMOCARE TF ADDED X3 CONTAINERS, VSS WILL CONTINUE TO ASSESS
--- NOTE | 2018-07-12 21:30 | NUR ---
x1 LIGHT RAMOS COLOR BM, PT AWAKE AND ALERT, COMPLETE BED LINEN CHANGE, PARTIAL BED BATH, REPOSITIONED IN BED, SUCTIONED AND ORAL CARE COMPLETED, VSS, WILL CONTINUE TO ASSESS
[2018-07-13] VITALS (20 sets, daily range): BP systolic 124–213; BP diastolic 59–91
--- NOTE | 2018-07-13 01:00 | NUR ---
PT RESTING IN BED WITH IN NO DISTRESS, REPOSITIONED, ORAL CARE COMPLETED, VSS WILL CONTINUE TO ASSESS
--- NOTE | 2018-07-13 02:00 | NUR ---
PT HAD LARGE SEMI-SOLID BM, BED BATH, MCKEON CARE, SKIN CARE, COMPLETE LINEN CHANGE, VSS, PT APEARS TO BE IN NO ACUTE DISTRESS
[2018-07-13 04:55] LABS: BASOPHILS 0.2 % (0-2); EOSINOPHILS 1.1 % (0-7); HEMATOCRIT 28.3 % (42.0-54.0); IMMATURE GRANULOCYTES 0.6 % (0-5); LYMPHOCYTES 12.7 % (15-50); MCH 29.1 pg (26.0-34.0); MCHC 31.8 g/dL (31.0-37.0); MCV 91.6 fL (80.0-100.0); MEAN PLATELET VOLUME 10.6 fL (7.4-10.4); NEUTROPHILS 71.4 % (40-80); PLATELET COUNT 208 10x3/uL (130-400); RBC 3.09 10x6/uL (4.20-6.10); WBC 8.5 10x3/uL (4.8-10.8)
[2018-07-13 05:06] LABS: ALBUMIN 3.3 g/dL (3.4-5.0); ALKALINE PHOSPHATASE 171 U/L (46-116); ALT (SGPT) 56 U/L (10-68); CALC OSMOLALITY 274 mosm/kg (275-300); CALCIUM 8.7 mg/dL (8.5-10.1); CARBON DIOXIDE 34.2 mmol/L (21.0-32.0); CHLORIDE - SERUM 97 mmol/L (98-107); CREATININE - SERUM 0.5 mg/dL (0.6-1.3); GLUCOSE 111 mg/dL (74-106); POTASSIUM - SERUM 3.8 mmol/L (3.5-5.1); PROTEIN - SERUM 6.7 g/dL (6.4-8.2); SODIUM 136 mmol/L (136-145); UREA NITROGEN 19 mg/dL (7-18); eGFR NON AFRICAN AMERICAN > 90 mL/min (90-120)
--- NOTE | 2018-07-13 06:00 | NUR ---
PT OBSERVED TRYING TO GET OUT OF BED, REORIENTATED TO SITUATION, REPOSITIONED BACK IN BED, PT NOTED TO HAVE x1 LIQUID BM AT THIS TIME, DIGGING MACHINE OPERATOR[LETE LINEN CHANGE AND SKIN CARE, VSS
--- NOTE | 2018-07-13 10:52 | NUR ---
1030 CARE ASSUMED OF PT.. PT IS AWAKE AND RESTLESS IN THE BED.. MCKEON CATH IN PLAE BOUCHRA URINE.. MIDLINE LEFT UPPER ARM.. D5W INFUSING AT 20CC.. TRACH TO VENT PT HAVING CPAP TRIALS AT THIS TIME 35% FIO2 .. PEG TO TUBE FEEDING ,PULMACARE AT 55CC PT IS AWAKE AND FOLLOWING SIMPLE COMMANDS .. RR IS 40 AT THIS TIME AND RT AT BEDSIDE RT SUCTIONED AND PT PLACED BACK ON VENT PER RT.. 1100 PT IS MORE SETTLED AT THIS TIME. VENT SETTINGSSIMV RATE OF 12 FIO2 35% 600 TV.. 5 PEEP 15 PS..
--- NOTE | 2018-07-13 15:03 | NUR ---
1200 COMPLETE BATH WITH LINEN CHANGE DONE PT WITH LARGE INCONTINENT YELLOW STOOL,SKIN CARE DONE TO SCROTAL AREA WITH BUTT BALM, NEW BAG TUBE FEEDING HUNG, FAMILY AT BEDSIDE AND UPDATE GIVEN 1300 PT IS RESTING QUIETLY WIHTOUT CHANGES.. 1400 CASE MANAGMENT IN UNIT AND ASKED ABOUT TRANSFER TO LTAC SHE STATED THAT WE ARE WAITING ON BED 1500 NO CHANGES IN STATUS..
--- NOTE | 2018-07-13 16:56 | NUR ---
1630 INCONTINENT OF STOOLBATH WITH LINENS.. MCKEON CARE GIVEN.. I AND O DONE , NO OTHER CHANGES
--- NOTE | 2018-07-13 19:03 | NUR ---
1700 FAMILY AT BEDSIDE.. NO OTHER CHANGES IN PT.. 1800 FAMILY GONE
--- NOTE | 2018-07-13 19:25 | NUR ---
PT RECEIVED WITH EYES OPEN WATCHING TV. PT RESTLESS. ASSISTED UP IN BED. BP ELEVATED WITH SCHEDULED CARTIZEN GIVEN PER AUG. WILL CONTINUE TO OBSERVE.
[2018-07-14] VITALS (18 sets, daily range): BP systolic 122–210; BP diastolic 66–89
--- NOTE | 2018-07-14 03:15 | NUR ---
MCKEON CATHETER CHANGED DUE TO AGE OF EXISTING MCKEON PER PROTOCOL. STERILE TECHNIQUE USED, LEFT UPPER ARM MIDLINE DRESSING CHANGED WELL. PT TOLERATED WELL. WILL CONTINUE TO OBSERVE.
[2018-07-14 04:50] LABS: BASOPHILS 0.3 % (0-2); EOSINOPHILS 1.3 % (0-7); HEMATOCRIT 27.7 % (42.0-54.0); HEMOGLOBIN 8.9 g/dL (13.5-17.5); IMMATURE GRANULOCYTES 0.5 % (0-5); LYMPHOCYTES 10.5 % (15-50); MCH 29.3 pg (26.0-34.0); MCHC 32.1 g/dL (31.0-37.0); MCV 91.1 fL (80.0-100.0); MEAN PLATELET VOLUME 10.1 fL (7.4-10.4); MONOCYTES 14.2 % (2-11); NEUTROPHILS 73.2 % (40-80); PLATELET COUNT 189 10x3/uL (130-400); RBC 3.04 10x6/uL (4.20-6.10); RDW 17.3 % (11.5-14.5); WBC 7.6 10x3/uL (4.8-10.8)
[2018-07-14 05:29] LABS: ALBUMIN 3.3 g/dL (3.4-5.0); ALKALINE PHOSPHATASE 211 U/L (46-116); ALT (SGPT) 62 U/L (10-68); BILIRUBIN - TOTAL 2.43 mg/dL (0.2-1.3); CALC OSMOLALITY 274 mosm/kg (275-300); CARBON DIOXIDE 32.4 mmol/L (21.0-32.0); CHLORIDE - SERUM 98 mmol/L (98-107); CREATININE - SERUM 0.6 mg/dL (0.6-1.3); GLUCOSE 134 mg/dL (74-106); POTASSIUM - SERUM 3.7 mmol/L (3.5-5.1); PROTEIN - SERUM 7.1 g/dL (6.4-8.2); SODIUM 136 mmol/L (136-145); UREA NITROGEN 16 mg/dL (7-18); eGFR NON AFRICAN AMERICAN > 90 mL/min (90-120)
--- NOTE | 2018-07-14 06:20 | NUR ---
PT WITH LARGE BM YELLOW IN COLOR. COMPLETE LINEN CHANGE PROVIDED WITH PERICARE. WILL CONTINUE TO OBSERVE.
--- NOTE | 2018-07-14 07:00 | NUR ---
REPORT RECIEVED, SHIFT ASSESSMENT COMPLETE, PT IS ON VENT, ALL PPP, VSS, WILL CON'T TO MONITOR
--- NOTE | 2018-07-14 09:25 | NUR ---
COMPLETE BB LINEN CHANGE ADM. LARGE LOOSE BM NOTED. WILL CONTINUE TO MONITOR
--- NOTE | 2018-07-14 09:30 | NUR ---
LG BM AT THIS TIME, COMPLETE BATH AND LINEN CHANGE
--- NOTE | 2018-07-14 11:15 | NUR ---
REASSESSMENT COMPLETE, NO CHANGES NOTED,
--- NOTE | 2018-07-14 12:20 | NUR ---
Nutrition follow-up: Pt with trach to vent; CPAP trials PEG tube with Pulmocare @ 55 ml/hr labs reviewed +BM Wt: 221# RDN following.
--- NOTE | 2018-07-14 13:15 | NUR ---
FAMILY AT BEDSIDE, UPDATE GIVEN,
--- NOTE | 2018-07-14 15:00 | NUR ---
BM AT THIS TIME, PARTIAL LINEN CHANGE
--- NOTE | 2018-07-14 15:30 | MORECARE ---
CASE MANAGEMENT DISCHARGE SUMMARY PATIENT: TEE MEYERS UNIT: [id number] ADM DATE: 06/15/18 AGE: 68 : 51 SEX: M ROOM/BED: D.2307 AUTHOR: ESTELLE,DOC PHYSICIAN: REFERRING PHYSICIAN: DUNG MELENDEZ MD DATE OF SERVICE: 07/14/18 Discharge Plan Patient Name: TEE MEYERS Facility: [facility]:[place] : 1950 Planned Disposition: Home or Self Care Anticipated Discharge Date: Discharge Date: Expected LOS: Initial Reviewer: [email or web address] Initial Review Date: 06/15/2018 Generated: 07/14/18 4:30 pm Comments DCP- Discharge Planning Updated by [id number]: Barbara Priest on 07/14/18 2:[address] CM called and left message Aurelio / Shira with [facility] to try to find out if patient was next on list for vent bed or where we stand on bed availability. Explained that patient lives in [place] and that if it will be a while before bed availability. CM will check with Mariya Meyers [facility] for bed availability. CM awaiting call back from Aurelio Silva. DCP- Discharge Planning Updated by [id number]: Barbara Priest on 07/08/18 2:[address] CM met with Aurelio with [facility] earlier today. She stated that patient seems appropriate for LTACH. She stated she would run his days/ insurance. She did state that they currently didn't have a bed available but would let us know as soon as one is available. CM will continue to follow and assist with discharge planning / needs. DCP- Discharge Planning Updated by [id number]: Barbara Priest on 07/08/18 9:[address] CM received a call from Aurelio from [facility] this am. Aurelio stated she would be over later to evaluate. CM will continue to follow and assist as needed with discharge planning. DCP- Discharge Planning Updated by [email or web address]: Barbara Priest on 07/08/18 9:[address] Late Entry 07/07/18 @ 1620 Patient decided on LTACH [facility] in [place]. CM called facility and faxed over records. CM will continue to follow and assist with discharge planning / needs DCP- Discharge Planning Updated by [id number]: Barbara Priest on 07/07/18 11:[address] CM received notice for LTACH eval. CM spoke with patients spouse (Kirstin) and gave her a list of LTACH facilities within the state. Kirstin stated that they live in [place] and would have to see which facility might be closer. She stated she would get back with CM regarding choice of facility. CM will continue to follow and assist with discharge planning / needs. DCP- Discharge Planning Updated by [email or web address]: Barbara Priest on 06/16/18 1:[address] Patient Name: TEE MEYERS Admission Status: Elective Accout number: [id number] Admission Date: 06-15-2018 : 1950 Admission Diagnosis: Attending: DUNG MELENDEZ Current LOS: 1 Anticipated DC Date: Planned Disposition: Home or Self Care Primary Insurance: MEDICARE A & B Discharge Planning Comments: CM met with spouse at bedside patient is currently on ventilator. Kirstin Meyers spouse. Plans to return home with his . Denies any discharge needs at this time. CM will continue to follow and assist as needed with discharge planning / needs. Human Resources Training Manager: Barbara Priest DCPIA - Discharge Planning Initial Assessment Updated by [id number]: Barbara Priest on 06/16/18 2:44 pm * Is the patient Alert and Oriented? Yes * How many steps to enter\exit or inside your home? * PCP Maxim Lozada * Pharmacy [place] * Preadmission Environment Home with Family * ADLs Independent * Equipment Oxygen * List name and contact numbers for known caregivers / representatives who currently or will assist patient after discharge: Amando Meyers son [phone] * Verbal permission to speak to the caregivers and representatives has been obtained from the patient. N/A * Community resources currently utilized None * Additional services required to return to the preadmission environment? No * Can the patient safely return to the preadmission environment? Yes * Has this patient been hospitalized within the prior 30 days at any hospital? No Last DP export: 07/08/18 2:55 p Patient Name: TEE MEYERS Page [id number] at 1530 All edits/amendments must be made on the electronic document DICTATION DATE: 07/14/181529 NUT SHELLER: LAURIE 07/14/181529 RPT#: [id number] DC DATE: STATUS: ADM IN [facility] [address] [place] [address] END OF REPORT
--- NOTE | 2018-07-14 15:56 | MORECARE ---
CASE MANAGEMENT DISCHARGE SUMMARY PATIENT: TEE MEYERS UNIT: [id number] ADM DATE: 06/15/18 AGE: 68 : 51 SEX: M ROOM/BED: D.2307 AUTHOR: ESTELLE,DOC PHYSICIAN: REFERRING PHYSICIAN: DUNG MELENDEZ MD DATE OF SERVICE: 07/14/18 Discharge Plan Patient Name: TEE MEYERS Facility: [facility]:[place] : 1950 Planned Disposition: Home or Self Care Anticipated Discharge Date: Discharge Date: Expected LOS: Initial Reviewer: [email or web address] Initial Review Date: 06/15/2018 Generated: 07/14/18 4:56 pm Comments DCP- Discharge Planning Updated by [email or web address]: Barbara Priest on 07/14/18 2:[address] CM received call back from Shira @ [facility] in . Shira stated that patient is on list but he has 3 patients ahead of him on list. CM will speak with family and see if we can send eval to [facility] or [facility]. DCP- Discharge Planning Updated by [id number]: Barbara Priest on 07/14/18 2:[address] CM called and left message Aurelio / Shira with [facility] to try to find out if patient was next on list for vent bed or where we stand on bed availability. Explained that patient lives in [place] and that if it will be a while before bed availability. CM will check with Mariya Meyers [facility] for bed availability. CM awaiting call back from Aurelio / Shira. DCP- Discharge Planning Updated by [email or web address]: Barbara Priest on 07/08/18 2:[address] CM met with Aurelio with [facility] earlier today. She stated that patient seems appropriate for LTACH. She stated she would run his days/ insurance. She did state that they currently didn't have a bed available but would let us know as soon as one is available. CM will continue to follow and assist with discharge planning / needs. DCP- Discharge Planning Updated by [id number]: Barbara Priest on 07/08/18 9:[address] CM received a call from Aurelio from [facility] this am. Aurelio stated she would be over later to evaluate. CM will continue to follow and assist as needed with discharge planning. DCP- Discharge Planning Updated by [email or web address]: Barbara Priest on 07/08/18 9:[address] Late Entry 07/07/18 @ 1620 Patient decided on LTACH [facility] in [place]. CM called facility and faxed over records. CM will continue to follow and assist with discharge planning / needs DCP- Discharge Planning Updated by [email or web address]: Barbara Priest on 07/07/18 11:[address] CM received notice for LTACH eval. CM spoke with patients spouse (Kirstin) and gave her a list of LTACH facilities within the state. Kirstin stated that they live in [place] and would have to see which facility might be closer. She stated she would get back with CM regarding choice of facility. CM will continue to follow and assist with discharge planning / needs. DCP- Discharge Planning Updated by [id number]: Barbara Priest on 06/16/18 1:[address] Patient Name: TEE MEYERS Admission Status: Elective Accout number: [id number] Admission Date: 06-15-2018 : 1950 Admission Diagnosis: Attending: DUNG MELENDEZ Current LOS: 1 Anticipated DC Date: Planned Disposition: Home or Self Care Primary Insurance: MEDICARE A & B Discharge Planning Comments: CM met with spouse at bedside patient is currently on ventilator. Kirstin Meyers spouse. Plans to return home with his . Denies any discharge needs at this time. CM will continue to follow and assist as needed with discharge planning / needs. Green Chain Marker: Barbara Priest DCPIA - Discharge Planning Initial Assessment Updated by [email or web address]: Barbara Priest on 06/16/18 2:44 pm * Is the patient Alert and Oriented? Yes * How many steps to enter\exit or inside your home? * PCP Maxim Lozada * Pharmacy [place] * Preadmission Environment Home with Family * ADLs Independent * Equipment Oxygen * List name and contact numbers for known caregivers / representatives who currently or will assist patient after discharge: Amando luog [phone] * Verbal permission to speak to the caregivers and representatives has been obtained from the patient. N/A * Community resources currently utilized None * Additional services required to return to the preadmission environment? No * Can the patient safely return to the preadmission environment? Yes * Has this patient been hospitalized within the prior 30 days at any hospital? No Last DP export: 07/14/18 2:30 p Patient Name: TEE MEYERS Page [phone] at 1556 All edits/amendments must be made on the electronic document DICTATION DATE: 07/14/181555 RN DOCUMENTATION: LAURIE 07/14/181555 RPT#: [id number] DC DATE: STATUS: ADM IN [facility] [address] [place] [address] END OF REPORT
--- NOTE | 2018-07-14 17:05 | MORECARE ---
CASE MANAGEMENT DISCHARGE SUMMARY PATIENT: TEE MEYERS UNIT: [id number] ADM DATE: 06/15/18 AGE: 68 : 51 SEX: M ROOM/BED: D.2307 AUTHOR: ESTELLE,DOC PHYSICIAN: REFERRING PHYSICIAN: DUNG MELENDEZ MD DATE OF SERVICE: 07/14/18 Discharge Plan Patient Name: TEE MEYERS Facility: [facility]:[place] : 1950 Planned Disposition: Home or Self Care Anticipated Discharge Date: Discharge Date: Expected LOS: Initial Reviewer: [email or web address] Initial Review Date: 06/15/2018 Generated: 07/14/18 6:05 pm Comments DCP- Discharge Planning Updated by [email or web address]: Barbara Priest on 07/14/18 4:[address] Late Entry 07/12/18 @ 1300 Aurelio visited unit to check on patient told nursing and CM that there was any vent beds available but as soon as there was one she would let us know.CM will continue to monitor and assist as needed with discharge planning / needs. DCP- Discharge Planning Updated by [id number]: Barbara Priest on 07/14/18 2:[address] CM received call back from Shira ORAL in . Shira stated that patient is on list but he has 3 patients ahead of him on list. CM will speak with family and see if we can send eval to [facility] or [facility]. DCP- Discharge Planning Updated by [id number]: Barbara Priest on 07/14/18 2:[address] CM called and left message Aurelio / Shira with [facility] to try to find out if patient was next on list for vent bed or where we stand on bed availability. Explained that patient lives in [place] and that if it will be a while before bed availability. CM will check with [facility] for bed availability. CM awaiting call back from Aurelio / Shira. DCP- Discharge Planning Updated by [id number]: Barbara Priest on 07/08/18 2:[address] CM met with Aurelio with [facility] earlier today. She stated that patient seems appropriate for LTACH. She stated she would run his days/ insurance. She did state that they currently didn't have a bed available but would let us know as soon as one is available. CM will continue to follow and assist with discharge planning / needs. DCP- Discharge Planning Updated by [id number]: Barbara Priest on 07/08/18 9:[address] CM received a call from Aurelio from [facility] this am. Aurelio stated she would be over later to evaluate. CM will continue to follow and assist as needed with discharge planning. DCP- Discharge Planning Updated by [email or web address]: Barbara Priest on 07/08/18 9:[address] Late Entry 07/07/18 @ 1620 Patient decided on LTACH [facility] in [place]. CM called facility and faxed over records. CM will continue to follow and assist with discharge planning / needs DCP- Discharge Planning Updated by [email or web address]: Barbara Priest on 07/07/18 11:[address] CM received notice for LTACH eval. CM spoke with patients spouse (Kirstin) and gave her a list of LTACH facilities within the [facility]. Kirstin stated that they live in [place] and would have to see which facility might be closer. She stated she would get back with CM regarding choice of facility. CM will continue to follow and assist with discharge planning / needs. DCP- Discharge Planning Updated by [id number]: Barbara Priest on 06/16/18 1:[address] Patient Name: TEE MEYERS Admission Status: Elective Accout number: [id number] Admission Date: 06-15-2018 : 1950 Admission Diagnosis: Attending: DUNG MELENDEZ Current LOS: 1 Anticipated DC Date: Planned Disposition: Home or Self Care Primary Insurance: MEDICARE A & B Discharge Planning Comments: CM met with spouse at bedside patient is currently on ventilator. Kirstin Meyers spouse. Plans to return home with his . Denies any discharge needs at this time. CM will continue to follow and assist as needed with discharge planning / needs. Chair Upholsterer: Barbara Priest DCPIA - Discharge Planning Initial Assessment Updated by [email or web address]: Barbara Priest on 06/16/18 2:44 pm * Is the patient Alert and Oriented? Yes * How many steps to enter\exit or inside your home? * PCP Maxim Lozada * Pharmacy [facility] * Preadmission Environment Home with Family * ADLs Independent * Equipment Oxygen * List name and contact numbers for known caregivers / representatives who currently or will assist patient after discharge: Amando Meyers son [phone] * Verbal permission to speak to the caregivers and representatives has been obtained from the patient. N/A * Community resources currently utilized None * Additional services required to return to the preadmission environment? No * Can the patient safely return to the preadmission environment? Yes * Has this patient been hospitalized within the prior 30 days at any hospital? No Last DP export: 07/14/18 2:56 p Patient Name: TEE MEYERS Page [id number] at 1705 All edits/amendments must be made on the electronic document DICTATION DATE: 07/14/181704 SUPERVISOR CELLARS: LAURIE 07/14/181704 RPT#: [id number] DC DATE: STATUS: ADM IN [facility] [address] [place] [address] END OF REPORT
--- NOTE | 2018-07-14 17:20 | NUR ---
COMPLETE BB LINEN CHANGE ADM. LARGE BM NOTED. WILL CONTINUE TO MONITOR
--- NOTE | 2018-07-14 19:05 | NUR ---
PT RECEIVED WITH EYES OPEN AND DISORIENTED. VENT VIA TRACH SIMV. VITAL SIGNS STABLE. MCKEON PATENT WITH BOUCHRA URINE NOTED. WILL CONTINUE TO OBSERVE.
--- NOTE | 2018-07-14 21:45 | NUR ---
PT WITH BM. BATH AND COMPLETE LINEN CHANGE PROVIDED. PT TOLERATED WELL. WILL CONTINUE TO OBSERVE.
--- NOTE | 2018-07-14 23:50 | NUR ---
PT WITH EYES CLOSED AND CHEST RISING. VITAL SIGNS STABLE. WILL CONTINUE TO OBSERVE.
[2018-07-15] VITALS (21 sets, daily range): BP systolic 053–194; BP diastolic 65–93
--- NOTE | 2018-07-15 03:52 | NUR ---
PT WITH EYES CLOSED CONTINUES VENT. XRAY AT BEDSIDE. WILL CONTINUE TO OBSERVE.
[2018-07-15 05:03] LABS: BASOPHILS 0.5 % (0-2); EOSINOPHILS 1.7 % (0-7); HEMATOCRIT 26.4 % (42.0-54.0); HEMOGLOBIN 8.3 g/dL (13.5-17.5); IMMATURE GRANULOCYTES 0.3 % (0-5); LYMPHOCYTES 11.4 % (15-50); MCH 28.9 pg (26.0-34.0); MCHC 31.4 g/dL (31.0-37.0); MEAN PLATELET VOLUME 10.5 fL (7.4-10.4); MONOCYTES 13.6 % (2-11); NEUTROPHILS 72.5 % (40-80); PLATELET COUNT 200 10x3/uL (130-400); RBC 2.87 10x6/uL (4.20-6.10); RDW 17.2 % (11.5-14.5); WBC 6.4 10x3/uL (4.8-10.8)
[2018-07-15 05:28] LABS: ALBUMIN 3.1 g/dL (3.4-5.0); ALKALINE PHOSPHATASE 184 U/L (46-116); ALT (SGPT) 53 U/L (10-68); BILIRUBIN - TOTAL 1.95 mg/dL (0.2-1.3); CALCIUM 8.4 mg/dL (8.5-10.1); CARBON DIOXIDE 34.9 mmol/L (21.0-32.0); CHLORIDE - SERUM 95 mmol/L (98-107); CREATININE - SERUM 0.6 mg/dL (0.6-1.3); GLUCOSE 116 mg/dL (74-106); PROTEIN - SERUM 6.6 g/dL (6.4-8.2); SODIUM 134 mmol/L (136-145); eGFR NON AFRICAN AMERICAN > 90 mL/min (90-120)
[2018-07-15 05:29] LABS: CALC OSMOLALITY 271 mosm/kg (275-300); POTASSIUM - SERUM 4.3 mmol/L (3.5-5.1); UREA NITROGEN 21 mg/dL (7-18)
--- NOTE | 2018-07-15 05:45 | NUR ---
PT RESTING WITH EYES CLOSED AND EASILY AROUSED TO VERBAL STIMULI. NO S/S OF DISTRESS WILL CONTINUE TO OBSERVE.
--- NOTE | 2018-07-15 07:25 | NUR ---
REPORT RECIEVED, SHIFT ASSESSMENT COMPLETE, PT IS ON THE VENT, ALL PPP, VSS, WILL CON'T TO MONITOR
--- NOTE | 2018-07-15 09:20 | NUR ---
FAMILY CALLED GIVEN UPDATE.
--- NOTE | 2018-07-15 11:15 | NUR ---
LARGE BM NOTED. COMPLETE BB LINEN CHANGE ADM.
--- NOTE | 2018-07-15 11:45 | MORECARE ---
CASE MANAGEMENT DISCHARGE SUMMARY PATIENT: TEE MEYERS UNIT: [id number] ADM DATE: 06/15/18 AGE: 68 : 51 SEX: M ROOM/BED: D.2307 AUTHOR: ESTELLE,DOC PHYSICIAN: REFERRING PHYSICIAN: DUNG MELENDEZ MD DATE OF SERVICE: 07/15/18 Discharge Plan Patient Name: TEE MEYERS Facility: [facility]:[place] : 1950 Planned Disposition: Home or Self Care Anticipated Discharge Date: Discharge Date: Expected LOS: Initial Reviewer: [email or web address] Initial Review Date: 06/15/2018 Generated: 07/15/18 12:45 pm Comments DCP- Discharge Planning Updated by [email or web address]: Barbara Priest on 07/14/18 4:[address] Late Entry 07/12/18 @ 1300 Aurelio visited unit to check on patient told nursing and CM that there was any vent beds available but as soon as there was one she would let us know.CM will continue to monitor and assist as needed with discharge planning / needs. DCP- Discharge Planning Updated by [id number]: Barbara Priest on 07/14/18 2:[address] CM received call back from Shira ORAL in . Shira stated that patient is on list but he has 3 patients ahead of him on list. CM will speak with family and see if we can send eval to [facility] or [facility]. DCP- Discharge Planning Updated by [id number]: Barbara Priest on 07/14/18 2:[address] CM called and left message Aurelio / Shira with [facility] to try to find out if patient was next on list for vent bed or where we stand on bed availability. Explained that patient lives in [place] and that if it will be a while before bed availability. CM will check with [facility] for bed availability. CM awaiting call back from Aurelio / Shira. DCP- Discharge Planning Updated by [id number]: Barbara Priest on 07/08/18 2:[address] CM met with Aurelio with [facility] earlier today. She stated that patient seems appropriate for LTACH. She stated she would run his days/ insurance. She did state that they currently didn't have a bed available but would let us know as soon as one is available. CM will continue to follow and assist with discharge planning / needs. DCP- Discharge Planning Updated by [email or web address]: Barbara Priest on 07/08/18 9:[address] CM received a call from Aurelio from [facility] this am. Aurelio stated she would be over later to evaluate. CM will continue to follow and assist as needed with discharge planning. DCP- Discharge Planning Updated by [id number]: Barbara Priest on 07/08/18 9:[address] Late Entry 07/07/18 @ 1620 Patient decided on LTACH [facility] in [place]. CM called facility and faxed over records. CM will continue to follow and assist with discharge planning / needs DCP- Discharge Planning Updated by [id number]: Barbara Priest on 07/07/18 11:[address] CM received notice for LTACH eval. CM spoke with patients spouse (Kirstin) and gave her a list of LTACH facilities within the replaced by [facility]. Kirstin stated that they live in [place] and would have to see which facility might be closer. She stated she would get back with CM regarding choice of facility. CM will continue to follow and assist with discharge planning / needs. DCP- Discharge Planning Updated by [id number]: Barbara Priest on 06/16/18 1:[address] Patient Name: TEE MEYERS Admission Status: Elective Accout number: [id number] Admission Date: 06-15-2018 : 1950 Admission Diagnosis: Attending: DUNG MELENDEZ Current LOS: 1 Anticipated DC Date: Planned Disposition: Home or Self Care Primary Insurance: MEDICARE A & B Discharge Planning Comments: CM met with spouse at bedside patient is currently on ventilator. Kirstin Meyers spouse. Plans to return home with his . Denies any discharge needs at this time. CM will continue to follow and assist as needed with discharge planning / needs. Loom Control Chain Builder: Barbara Priest DCPIA - Discharge Planning Initial Assessment Updated by [id number]: Barbara Priest on 06/16/18 2:44 pm * Is the patient Alert and Oriented? Yes * How many steps to enter\exit or inside your home? * PCP Maxim Lozada * Pharmacy [place] * Preadmission Environment Home with Family * ADLs Independent * Equipment Oxygen * List name and contact numbers for known caregivers / representatives who currently or will assist patient after discharge: Amando Meyers son [phone] * Verbal permission to speak to the caregivers and representatives has been obtained from the patient. N/A * Community resources currently utilized None * Additional services required to return to the preadmission environment? No * Can the patient safely return to the preadmission environment? Yes * Has this patient been hospitalized within the prior 30 days at any hospital? No External Providers External Provider: Elliott Donaldson of [facility] Next Contact Date: Service Request Date: Service Type: Resolution: Reviewer: Comments: Last DP export: 07/14/18 4:05 p Patient Name: TEE MEYERS Page 17477 at 1145 All edits/amendments must be made on the electronic document DICTATION DATE: 07/15/18 1144 FINANCIAL SALES PROFESSIONAL: LAURIE 07/15/18 1144 RPT#: [id number] DC DATE: STATUS: ADM IN [facility] [address] [place] [address] END OF REPORT
--- NOTE | 2018-07-15 11:54 | MORECARE ---
CASE MANAGEMENT DISCHARGE SUMMARY PATIENT: TEE MEYERS UNIT: [id number] ADM DATE: 06/15/18 AGE: 68 : 51 SEX: M ROOM/BED: D.2307 AUTHOR: ESTELLE,DOC PHYSICIAN: REFERRING PHYSICIAN: DUNG MELENDEZ MD DATE OF SERVICE: 07/15/18 Discharge Plan Patient Name: TEE MEYERS Facility: [facility]:[place] : 1950 Planned Disposition: Home or Self Care Anticipated Discharge Date: Discharge Date: Expected LOS: Initial Reviewer: [email or web address] Initial Review Date: 06/15/2018 Generated: 07/15/18 12:53 pm Comments DCP- Discharge Planning Updated by [email or web address]: Barbara Priest on 07/15/18 10:[address] CM spoke with Irving with [facility] in [place] [phone]. Irving stated they did have vent bed availability. CM faxed clinical packet [phone] backup fax [phone]. CM awaiting approval. CM will continue to follow and assist as needed with discharge planning / needs. DCP- Discharge Planning Updated by [id number]: Barbara Priest on 07/14/18 4:[address] Late Entry 07/12/18 @ 1300 Aurelio visited unit to check on patient told nursing and CM that there was any vent beds available but as soon as there was one she would let us know.CM will continue to monitor and assist as needed with discharge planning / needs. DCP- Discharge Planning Updated by [email or web address]: Barbara Priest on 07/14/18 2:[address] CM received call back from Shira @ [facility] in . Shira stated that patient is on list but he has 3 patients ahead of him on list. CM will speak with family and see if we can send eval to [place] or [place]. DCP- Discharge Planning Updated by [id number]: Barbara Priest on 07/14/18 2:[address] CM called and left message Aurelio / Shira with LTACH to try to find out if patient was next on list for vent bed or where we stand on bed availability. Explained that patient lives in [place] and that if it will be a while before bed availability. CM will check with [facility] for bed availability. CM awaiting call back from Aurelio / Shira. DCP- Discharge Planning Updated by [id number]: Barbara Priest on 07/08/18 2:[address] CM met with Aurelio with [facility] earlier today. She stated that patient seems appropriate for LTACH. She stated she would run his days/ insurance. She did state that they currently didn't have a bed available but would let us know as soon as one is available. CM will continue to follow and assist with discharge planning / needs. DCP- Discharge Planning Updated by [email or web address]: Barbara Priest on 07/08/18 9:[address] CM received a call from Aurelio from [facility] this am. Aurelio stated she would be over later to evaluate. CM will continue to follow and assist as needed with discharge planning. DCP- Discharge Planning Updated by [id number]: Barbara Priest on 07/08/18 9:[address] Late Entry 07/07/18 @ 1620 Patient decided on LTACH [facility] in [place]. CM called facility and faxed over records. CM will continue to follow and assist with discharge planning / needs DCP- Discharge Planning Updated by [email or web address]: Barbara Priest on 07/07/18 11:[address] CM received notice for LTACH eval. CM spoke with patients spouse (Kirstin) and gave her a list of LTACH facilities within the state. Kirstin stated that they live in [place] and would have to see which facility might be closer. She stated she would get back with CM regarding choice of facility. CM will continue to follow and assist with discharge planning / needs. DCP- Discharge Planning Updated by [id number]: Barbara Priest on 06/16/18 1:[address] Patient Name: TEE MEYERS Admission Status: Elective Accout number: [id number] Admission Date: 06-15-2018 : 1950 Admission Diagnosis: Attending: DUNG MELENDEZ Current LOS: 1 Anticipated DC Date: Planned Disposition: Home or Self Care Primary Insurance: MEDICARE A & B Discharge Planning Comments: CM met with spouse at bedside patient is currently on ventilator. Kirstin Meyers spouse. Plans to return home with his . Denies any discharge needs at this time. CM will continue to follow and assist as needed with discharge planning / needs. Grocery Clerk: Barbara Priest DCPIA - Discharge Planning Initial Assessment Updated by [id number]: Barbara Priest on 06/16/18 2:44 pm * Is the patient Alert and Oriented? Yes * How many steps to enter\exit or inside your home? * PCP Maxim Lozada * Pharmacy [facility] * Preadmission Environment Home with Family * ADLs Independent * Equipment Oxygen * List name and contact numbers for known caregivers / representatives who currently or will assist patient after discharge: Amando Meyers son [phone] * Verbal permission to speak to the caregivers and representatives has been obtained from the patient. N/A * Community resources currently utilized None * Additional services required to return to the preadmission environment? No * Can the patient safely return to the preadmission environment? Yes * Has this patient been hospitalized within the prior 30 days at any hospital? No Last DP export: 07/15/18 10:45 a Patient Name: TEE MEYERS Page 72007 at 1154 All edits/amendments must be made on the electronic document DICTATION DATE: 07/15/181152 TESTING MACHINE OPERATOR: LAURIE 07/15/181152 RPT#: [id number] DC DATE: STATUS: ADM IN [facility] [address] [place] [address] END OF REPORT
--- NOTE | 2018-07-15 13:00 | NUR ---
VENT ALARMING, PT REMOVED VENT, REORIENTED STATED OKAY VENT REAPPLIED VSS
--- NOTE | 2018-07-15 14:18 | MORECARE ---
CASE MANAGEMENT DISCHARGE SUMMARY PATIENT: TEE MEYERS UNIT: [id number] ADM DATE: 06/15/18 AGE: 68 : 51 SEX: M ROOM/BED: D.2307 AUTHOR: ESTELLE,DOC PHYSICIAN: REFERRING PHYSICIAN: DUNG MELENDEZ MD DATE OF SERVICE: 07/15/18 Discharge Plan Patient Name: TEE MEYERS Facility: [facility]:[place] : 1950 Planned Disposition: Home or Self Care Anticipated Discharge Date: Discharge Date: Expected LOS: Initial Reviewer: [email or web address] Initial Review Date: 06/15/2018 Generated: 07/15/18 3:18 pm Comments DCP- Discharge Planning Updated by [id number]: Barbara Priest on 07/15/18 1:[address] CM received call from Irving with [facility] in [place] [phone]. He stated that patient looked appropriate. He requested nursing number to ask them a few questions. Wanted to know when we wanted to transfer patient. Wanted to know if tomorrow would be alright 07/16/18. CM stated that would be fine. Irving stated he would call back shortly with definite answer. CM will continue to follow and assist as needed with discharge planning / needs. DCP- Discharge Planning Updated by [email or web address]: Barbara Priest on 07/15/18 10:[address] CM spoke with Irving with [facility] in [place] [phone]. Irving stated they did have vent bed availability. CM faxed clinical packet [phone] backup fax [phone]. CM awaiting approval. CM will continue to follow and assist as needed with discharge planning / needs. DCP- Discharge Planning Updated by [email or web address]: Barbara Priest on 07/14/18 4:[address] Late Entry 07/12/18 @ 1300 Aurelio visited unit to check on patient told nursing and CM that there was any vent beds available but as soon as there was one she would let us know.CM will continue to monitor and assist as needed with discharge planning / needs. DCP- Discharge Planning Updated by [email or web address]: Barbara Priest on 07/14/18 2:[address] CM received call back from Shira @ [facility] in . Shira stated that patient is on list but he has 3 patients ahead of him on list. CM will speak with family and see if we can send eval to [facility] or [facility]. DCP- Discharge Planning Updated by [email or web address]: Barbara Priest on 07/14/18 2:[address] CM called and left message Aurelio / Shira with LTACH to try to find out if patient was next on list for vent bed or where we stand on bed availability. Explained that patient lives in [place] and that if it will be a while before bed availability. CM will check with [facility] for bed availability. CM awaiting call back from Aurelio / Shira. DCP- Discharge Planning Updated by [id number]: Barbara Priest on 07/08/18 2:[address] [facility]. She stated that patient seems appropriate for LTACH. She stated she would run his days/ insurance. She did state that they currently didn't have a bed available but would let us know as soon as one is available. CM will continue to follow and assist with discharge planning / needs. DCP- Discharge Planning Updated by [id number]: Barbara Priest on 07/08/18 9:[address] CM received a call from Aurelio from [facility] this am. Aurelio stated she would be over later to evaluate. CM will continue to follow and assist as needed with discharge planning. DCP- Discharge Planning Updated by [id number]: Barbara Priest on 07/08/18 9:[address] Late Entry 07/07/18 @ 1620 Patient decided on LTACH [facility] in [place]. CM called facility and faxed over records. CM will continue to follow and assist with discharge planning / needs DCP- Discharge Planning Updated by [email or web address]: Barbara Priest on 07/07/18 11:[address] CM received notice for LTACH eval. CM spoke with patients spouse (Kirstin) and gave her a list of LTACH facilities within the state. Kirstin stated that they live in [place] and would have to see which facility might be closer. She stated she would get back with CM regarding choice of facility. CM will continue to follow and assist with discharge planning / needs. DCP- Discharge Planning Updated by [email or web address]: Barbara Priest on 06/16/18 1:[address] Patient Name: TEE MEYERS Admission Status: Elective Accout number: [id number] Admission Date: 06-15-2018 : 1950 Admission Diagnosis: Attending: DUNG MELENDEZ Current LOS: 1 Anticipated DC Date: Planned Disposition: Home or Self Care Primary Insurance: MEDICARE A & B Discharge Planning Comments: CM met with spouse at bedside patient is currently on ventilator. Kirstin Meyers spouse. Plans to return home with his . Denies any discharge needs at this time. CM will continue to follow and assist as needed with discharge planning / needs. Professional Fee Coder: aBrbara Priest DCPIA - Discharge Planning Initial Assessment Updated by [email or web address]: Barbara Hernandezr on 06/16/18 2:44 pm * Is the patient Alert and Oriented? Yes * How many steps to enter\exit or inside your home? * PCP Maxim Lozada * Pharmacy [place] * Preadmission Environment Home with Family * ADLs Independent * Equipment Oxygen * List name and contact numbers for known caregivers / representatives who currently or will assist patient after discharge: Amando Meyers son [phone] * Verbal permission to speak to the caregivers and representatives has been obtained from the patient. N/A * Community resources currently utilized None * Additional services required to return to the preadmission environment? No * Can the patient safely return to the preadmission environment? Yes * Has this patient been hospitalized within the prior 30 days at any hospital? No Last DP export: 07/15/18 10:54 a Patient Name: TEE MEYERS Page 95109 at 1418 All edits/amendments must be made on the electronic document DICTATION DATE: 07/15/181416 STAFF RESEARCH ASSOCIATE: LAURIE 07/15/181416 RPT#: [id number] DC DATE: STATUS: ADM IN [facility] [address] [place] [address] END OF REPORT
--- NOTE | 2018-07-15 15:00 | NUR ---
VENT ALARMING, [facility] ENODTRACH CARE ADM. VSS NO NEW CHANGE WILL CONTINUE TO MONITOR
--- NOTE | 2018-07-15 15:42 | MORECARE ---
CASE MANAGEMENT DISCHARGE SUMMARY PATIENT: TEE MEYERS UNIT: [id number] ADM DATE: 06/15/18 AGE: 68 : 51 SEX: M ROOM/BED: D.2307 AUTHOR: ESTELLE,DOC PHYSICIAN: REFERRING PHYSICIAN: DUNG MELENDEZ MD DATE OF SERVICE: 07/15/18 Discharge Plan Patient Name: TEE MEYERS Facility: [facility]:[place] : 1950 Planned Disposition: Home or Self Care Anticipated Discharge Date: Discharge Date: Expected LOS: Initial Reviewer: [email or web address] Initial Review Date: 06/15/2018 Generated: 07/15/18 4:41 pm Comments DCP- Discharge Planning Updated by [id number]: Barbara Priest on 07/15/18 1:[address] CM received call from Irving with [facility] in [place] [phone]. He stated that patient looked appropriate. He requested nursing number to ask them a few questions. Wanted to know when we wanted to transfer patient. Wanted to know if tomorrow would be alright 07/16/18. CM stated that would be fine. Irving stated he would call back shortly with definite answer. CM will continue to follow and assist as needed with discharge planning / needs. DCP- Discharge Planning Updated by [id number]: Barbara Priest on 07/15/18 10:[address] CM spoke with Irving with [facility] in [place] [phone]. Irving stated they did have vent bed availability. CM faxed clinical packet [phone] backup fax [phone]. CM awaiting approval. CM will continue to follow and assist as needed with discharge planning / needs. DCP- Discharge Planning Updated by [id number]: Barbara Priest on 07/14/18 4:[address] Late Entry 07/12/18 @ 1300 Aurelio visited unit to check on patient told nursing and CM that there was any vent beds available but as soon as there was one she would let us know.CM will continue to monitor and assist as needed with discharge planning / needs. DCP- Discharge Planning Updated by [email or web address]: Barbara Priest on 07/14/18 2:[address] CM received call back from Shira @ [facility] in . Shira stated that patient is on list but he has 3 patients ahead of him on list. CM will speak with family and see if we can send eval to [facility] or [facility]. DCP- Discharge Planning Updated by [id number]: Barbara Priest on 07/14/18 2:[address] CM called and left message Aurelio / Shira with [facility]ACH to try to find out if patient was next on list for vent bed or where we stand on bed availability. Explained that patient lives in [place] and that if it will be a while before bed availability. CM will check with [facility] for bed availability. CM awaiting call back from Aurelio / Shira. DCP- Discharge Planning Updated by [id number]: Barbara Priest on 07/08/18 2:[address] CM [facility]. She stated that patient seems appropriate for LTACH. She stated she would run his days/ insurance. She did state that they currently didn't have a bed available but would let us know as soon as one is available. CM will continue to follow and assist with discharge planning / needs. DCP- Discharge Planning Updated by [id number]: Barbara Priest on 07/08/18 9:[address] CM received a call from Aurelio from [facility] this am. Aurelio stated she would be over later to evaluate. CM will continue to follow and assist as needed with discharge planning. DCP- Discharge Planning Updated by [id number]: Barbara Priest on 07/08/18 9:[address] Late Entry 07/07/18 @ 1620 Patient decided on LTACH [facility] in [place]. CM called facility and faxed over records. CM will continue to follow and assist with discharge planning / needs DCP- Discharge Planning Updated by [id number]: Barbara Priest on 07/07/18 11:[address] CM received notice for LTACH eval. CM spoke with patients spouse (Kirstin) and gave her a list of LTACH facilities within the state. Kirstin stated that they live in [place] and would have to see which facility might be closer. She stated she would get back with CM regarding choice of facility. CM will continue to follow and assist with discharge planning / needs. DCP- Discharge Planning Updated by [id number]: Barbara Priest on 06/16/18 1:[address] Patient Name: TEE MEYERS Admission Status: Elective Accout number: [id number] Admission Date: 06-15-2018 : 1950 Admission Diagnosis: Attending: DUNG MELENDEZ Current LOS: 1 Anticipated DC Date: Planned Disposition: Home or Self Care Primary Insurance: MEDICARE A & B Discharge Planning Comments: CM met with spouse at bedside patient is currently on ventilator. Kirstin Meyers spouse. Plans to return home with his . Denies any discharge needs at this time. CM will continue to follow and assist as needed with discharge planning / needs. Marine Engineer Cpvec: Barbara Priest DCPIA - Discharge Planning Initial Assessment Updated by [id number]: Barbara Hernandezr on 06/16/18 2:44 pm * Is the patient Alert and Oriented? Yes * How many steps to enter\exit or inside your home? * PCP Maxim Lozada * [facility] * Preadmission Environment Home with Family * ADLs Independent * Equipment Oxygen * List name and contact numbers for known caregivers / representatives who currently or will assist patient after discharge: Amando Meyers son [phone] * Verbal permission to speak to the caregivers and representatives has been obtained from the patient. N/A * Community resources currently utilized None * Additional services required to return to the preadmission environment? No * Can the patient safely return to the preadmission environment? Yes * Has this patient been hospitalized within the prior 30 days at any hospital? No External Providers External Provider: OTHER-OTHER Next Contact Date: Service Request Date: Service Type: Resolution: Reviewer: Comments: Last DP export: 07/15/18 1:18 p Patient Name: TEE MEYERS Page 89601 at 1542 All edits/amendments must be made on the electronic document DICTATION DATE: 07/15/181540 PIE CHEF: LAURIE 07/15/18 154 RPT#: [id number] DC DATE: STATUS: ADM IN [facility] [address] [place] [address] END OF REPORT
--- NOTE | 2018-07-15 16:00 | MORECARE ---
CASE MANAGEMENT DISCHARGE SUMMARY PATIENT: TEE MEYERS UNIT: [id number] ADM DATE: 06/15/18 AGE: 68 : 51 SEX: M ROOM/BED: D.2307 AUTHOR: ESTELLE,DOC PHYSICIAN: REFERRING PHYSICIAN: DUNG MELENDEZ MD DATE OF SERVICE: 07/15/18 Discharge Plan Patient Name: TEE MEEYRS Facility: [facility]:[place] : 1950 Planned Disposition: Home or Self Care Anticipated Discharge Date: Discharge Date: Expected LOS: Initial Reviewer: [email or web address] Initial Review Date: 06/15/2018 Generated: 07/15/18 5:00 pm Comments DCP- Discharge Planning Updated by [id number]: Barbara Priest on 07/15/18 2:[address] CM called [facility] ambulance transfer and [facility] to check pricing for transfer. [facility] will bill insurance since it is medically necessary for patient to travel to [place] for LTACH since they are the closest accepting vent facility. [facility] will pick patient up for transfer @ 10am 07/16/18. Nursing to call report when ambulance picks up patient. CM notified patients Kirstin of arrangements and she agrees with plan. CM notified Irving of planned time for picker tender. CM will continue to follow and assist with discharge planning / needs. DCP- Discharge Planning Updated by [id number]: Barbara Priest on 07/15/18 2:[address] It is medically necessary for patient to travel to [place] for LTACH since they are the closest accepting vent facility. DCP- Discharge Planning Updated by [id number]: Barbara Priest on 07/15/18 1:[address] CM received call from Irving with [facility] in [place] [phone]. He stated that patient looked appropriate. He requested nursing number to ask them a few questions. Wanted to know when we wanted to transfer patient. Wanted to know if tomorrow would be alright 07/16/18. CM stated that would be fine. Irving stated he would call back shortly with definite answer. CM will continue to follow and assist as needed with discharge planning / needs. DCP- Discharge Planning Updated by [id number]: Barbara Priest on 07/15/18 10:[address] CM spoke with Irving with [facility] in [place] [phone]. Irving stated they did have vent bed availability. CM faxed clinical packet [phone] backup fax [phone]. CM awaiting approval. CM will continue to follow and assist as needed with discharge planning / needs. DCP- Discharge Planning Updated by [id number]: Barbara Priest on 07/14/18 4:[address] Late Entry 07/12/18 @ 1300 Aurelio visited unit to check on patient told nursing and CM that there was any vent beds available but as soon as there was one she would let us know.CM will continue to monitor and assist as needed with discharge planning / needs. DCP- Discharge Planning Updated by [id number]: Barbara Priest on 07/14/18 2:[address] CM received call back from Shira @ [facility] in . Shira stated that patient is on list but he has 3 patients ahead of him on list. CM will speak with family and see if we can send eval to [facility] or [facility]. DCP- Discharge Planning Updated by [id number]: Barbara Priest on 07/14/18 2:[address] CM called and left message Aurelio / Shira with [facility] to try to find out if patient was next on list for vent bed or where we stand on bed availability. Explained that patient lives in [place] and that if it will be a while before bed availability. CM will check with [facility] for bed availability. CM awaiting call back from Aurelio / Shira. DCP- Discharge Planning Updated by [id number]: Barbara Priest on 07/08/18 2:[address] CM met with Aurelio with [facility] earlier today. She stated that patient seems appropriate for LTACH. She stated she would run his days/ insurance. She did state that they currently didn't have a bed available but would let us know as soon as one is available. CM will continue to follow and assist with discharge planning / needs. DCP- Discharge Planning Updated by [id number]: Barbara Priest on 07/08/18 9:[address] CM received a call from Aurelio from [facility] this am. Aurelio stated she would be over later to evaluate. CM will continue to follow and assist as needed with discharge planning. DCP- Discharge Planning Updated by [id number]: Barbara Priest on 07/08/18 9:[address] Late Entry 07/07/18 @ 1620 Patient decided on LTACH [facility] in [place]. CM called facility and faxed over records. CM will continue to follow and assist with discharge planning / needs DCP- Discharge Planning Updated by [id number]: Barbara Priest on 07/07/18 11:[address] CM received notice for LTACH eval. CM spoke with patients spouse (Kirstin) and gave her a list of LTACH facilities within the [facility]. Kirstin stated that they live in [place] and would have to see which facility might be closer. She stated she would get back with CM regarding choice of facility. CM will continue to follow and assist with discharge planning / needs. DCP- Discharge Planning Updated by [id number]: Barbara Priest on 06/16/18 1:[address] Patient Name: TEE MEYERS Admission Status: Elective Accout number: [id number] Admission Date: 06-15-2018 : 1950 Admission Diagnosis: Attending: DUNG MELENDEZ Current LOS: 1 Anticipated DC Date: Planned Disposition: Home or Self Care Primary Insurance: MEDICARE A & B Discharge Planning Comments: CM met with spouse at bedside patient is currently on ventilator. Kirstin Meyers spouse. Plans to return home with his . Denies any discharge needs at this time. CM will continue to follow and assist as needed with discharge planning / needs. Inpatient Services Rn: Barbara Priest DCPIA - Discharge Planning Initial Assessment Updated by [email or web address]: Barbara Priest on 06/16/18 2:44 pm * Is the patient Alert and Oriented? Yes * How many steps to enter\exit or inside your home? * PCP Maxim Lozada * [facility] * Preadmission Environment Home with Family * ADLs Independent * Equipment Oxygen * List name and contact numbers for known caregivers / representatives who currently or will assist patient after discharge: Amando lugo [phone] * Verbal permission to speak to the caregivers and representatives has been obtained from the patient. N/A * Community resources currently utilized None * Additional services required to return to the preadmission environment? No * Can the patient safely return to the preadmission environment? Yes * Has this patient been hospitalized within the prior 30 days at any hospital? No Last DP export: 07/15/18 2:41 p Patient Name: TEE MEYERS Page 89543 at 1600 All edits/amendments must be made on the electronic document DICTATION DATE: 07/15/181599 CAR OILER: LAURIE 07/15/181599 RPT#: [id number] DC DATE: STATUS: ADM IN [facility] [address] [place] [address] END OF REPORT
--- NOTE | 2018-07-15 17:20 | NUR ---
COMPLETE BB LINEN CHANGE ADM .LARGE BM NOTED.
--- NOTE | 2018-07-15 19:30 | NUR ---
ASSESSMENT COMPLETE, PER NURSING FLOWSHEET, PATIENT REPOSITIONED, ORAL CARE PROVIDED. WILL CONTINUE TO MONITOR
--- NOTE | 2018-07-15 21:00 | NUR ---
PATIENT REPOSITIONED, NO OTHER NEEDS COMMUNICATED OR NOTED
--- NOTE | 2018-07-15 22:00 | NUR ---
COMPLETE LINEN CHANGE FOR INCONTINENT BOWEL EPISODE, NATHANAEL CARE PROVIDED, BARRIER CREAM APPLIED, MEPILEX APPLIED TO SACRUM, TUBE FEEDING BAG CHANGED
--- NOTE | 2018-07-15 23:00 | NUR ---
PATIENT REPOSITIONED, ORAL CARE PROVIDED, VSS, C/L IN REACH
[2018-07-16] VITALS (10 sets, daily range): BP systolic 141–197; BP diastolic 74–107
--- NOTE | 2018-07-16 01:00 | NUR ---
PATIENT REPOSITIONED, MCKEON CARE PROVIDED
--- NOTE | 2018-07-16 03:00 | NUR ---
PATIENT REPOSITIONED, ORAL CARE PROVIDED, CONTINUE POC
[2018-07-16 04:03] LABS: BASOPHILS 0.4 % (0-2); EOSINOPHILS 1.6 % (0-7); HEMATOCRIT 28.1 % (42.0-54.0); HEMOGLOBIN 8.7 g/dL (13.5-17.5); IMMATURE GRANULOCYTES 0.4 % (0-5); LYMPHOCYTES 12.1 % (15-50); MCH 29.1 pg (26.0-34.0); MEAN PLATELET VOLUME 10.3 fL (7.4-10.4); MONOCYTES 15.6 % (2-11); NEUTROPHILS 69.9 % (40-80); PLATELET COUNT 211 10x3/uL (130-400); RBC 2.99 10x6/uL (4.20-6.10); RDW 17.6 % (11.5-14.5); WBC 6.8 10x3/uL (4.8-10.8)
--- NOTE | 2018-07-16 05:00 | NUR ---
PATIENT REPOSITIONED, NO OTHER NEEDS COMMUNICATED OR NOTED
[2018-07-16 05:26] LABS: ALBUMIN 3.2 g/dL (3.4-5.0); ALKALINE PHOSPHATASE 238 U/L (46-116); ALT (SGPT) 62 U/L (10-68); BILIRUBIN - TOTAL 1.74 mg/dL (0.2-1.3); CALC OSMOLALITY 280 mosm/kg (275-300); CALCIUM 8.8 mg/dL (8.5-10.1); CARBON DIOXIDE 31.7 mmol/L (21.0-32.0); CHLORIDE - SERUM 99 mmol/L (98-107); CREATININE - SERUM 0.5 mg/dL (0.6-1.3); DIGOXIN 1.69 ng/mL (0.90-2.00); GLUCOSE 124 mg/dL (74-106); POTASSIUM - SERUM 4.3 mmol/L (3.5-5.1); SODIUM 139 mmol/L (136-145); UREA NITROGEN 19 mg/dL (7-18); eGFR NON AFRICAN AMERICAN > 90 mL/min (90-120)
--- NOTE | 2018-07-16 06:00 | NUR ---
PARTIALL LINEN CHANGE FOR SMALL INCONTINENT BOWEL EPISODE
--- NOTE | 2018-07-16 07:45 | NUR ---
RE-FAXED PCS FORM TO [facility] AT [phone]
--- NOTE | 2018-07-16 08:03 | NUR ---
REPORT CALLED TO [facility] IN [place] TO JARRETT THOMAS.
--- NOTE | 2018-07-16 08:10 | NUR ---
ASSESSMENT COMPLETE. RESTLESS. PLACED ON CPAP BY RT. NO ACUTE DISTRESS NOTED.
--- NOTE | 2018-07-16 10:32 | NUR ---
DISCHARGED TO [facility] IN [place] VIA AMBULANCE.
[2018-07-16 11:23] LABS: FUNGUS MYCOLOGY CULTURE Final report (())
--- NOTE | 2018-07-16 12:09 | MORECARE ---
CASE MANAGEMENT DISCHARGE SUMMARY PATIENT: TEE MEYERS UNIT: [id number] ADM DATE: 06/15/18 AGE: 68 : 51 SEX: M ROOM/BED: D.2307 AUTHOR: ESTELLE,DOC PHYSICIAN: REFERRING PHYSICIAN: DUNG MELENDEZ MD DATE OF SERVICE: 07/16/18 Discharge Plan Patient Name: TEE MEYERS Facility: [facility]:[place] : 1950 Planned Disposition: Home or Self Care Anticipated Discharge Date: Discharge Date: 07/16/2018 Expected LOS: Initial Reviewer: [email or web address] Initial Review Date: 06/15/2018 Generated: 07/16/18 1:09 pm Comments DCP- Discharge Planning Updated by [id number]: Barbara Priest on 07/15/18 2:[address] CM called [facility] ambulance transfer and [facility] to check pricing for transfer. [facility] will bill insurance since it is medically necessary for patient to travel to [place] for LTACH since they are the closest accepting vent facility. [facility] will pick patient up for transfer @ 10am 07/16/18. Nursing to call report when ambulance picks up patient. CM notified patients Kirstin of arrangements and she agrees with plan. CM notified Irving of planned time for chart picker. CM will continue to follow and assist with discharge planning / needs. DCP- Discharge Planning Updated by [id number]: Barbara Priest on 07/15/18 2:[address] It is medically necessary for patient to travel to [place] for LTACH since they are the closest accepting vent facility. DCP- Discharge Planning Updated by [id number]: Barbara Priest on 07/15/18 1:[address] CM received call from Irving with [facility] in [place] [phone]. He stated that patient looked appropriate. He requested nursing number to ask them a few questions. Wanted to know when we wanted to transfer patient. Wanted to know if tomorrow would be alright 07/16/18. CM stated that would be fine. Irving stated he would call back shortly with definite answer. CM will continue to follow and assist as needed with discharge planning / needs. DCP- Discharge Planning Updated by [id number]: Barbara Priest on 07/15/18 10:[address] CM spoke with Irving with [facility] in [place] [phone]. Irving stated they did have vent bed availability. CM faxed clinical packet [phone] backup fax [phone]. CM awaiting approval. CM will continue to follow and assist as needed with discharge planning / needs. DCP- Discharge Planning Updated by [id number]: Barbara Priest on 07/14/18 4:[address] Late Entry 07/12/18 @ 1300 Aurelio visited unit to check on patient told nursing and CM that there was any vent beds available but as soon as there was one she would let us know.CM will continue to monitor and assist as needed with discharge planning / needs. DCP- Discharge Planning Updated by [id number]: Barbara Priest on 07/14/18 2:[address] CM received call back from Shira @ [facility] in . Shira stated that patient is on list but he has 3 patients ahead of him on list. CM will speak with family and see if we can send eval to [facility] or [facility]. DCP- Discharge Planning Updated by [id number]: Barbara Priest on 07/14/18 2:[address] CM called and left message Aurelio / Shira with [facility] to try to find out if patient was next on list for vent bed or where we stand on bed availability. Explained that patient lives in [place] and that if it will be a while before bed availability. CM will check with [facility] for bed availability. CM awaiting call back from Aurelio / Shira. DCP- Discharge Planning Updated by [id number]: Barbara Priest on 07/08/18 2:[address] CM met with Aurelio with [facility] earlier today. She stated that patient seems appropriate for LTACH. She stated she would run his days/ insurance. She did state that they currently didn't have a bed available but would let us know as soon as one is available. CM will continue to follow and assist with discharge planning / needs. DCP- Discharge Planning Updated by [id number]: Barbara Priest on 07/08/18 9:[address] CM received a call from Aurelio from [facility] this am. Aurelio stated she would be over later to evaluate. CM will continue to follow and assist as needed with discharge planning. DCP- Discharge Planning Updated by [id number]: Barbara Priest on 07/08/18 9:[address] Late Entry 07/07/18 @ 1620 Patient decided on LTACH [facility] in [place]. CM called facility and faxed over records. CM will continue to follow and assist with discharge planning / needs DCP- Discharge Planning Updated by [id number]: Barbara Priest on 07/07/18 11:[address] CM received notice for LTACH eval. CM spoke with patients spouse (Kirstin) and gave her a list of LTACH facilities within the [facility]. Kirstin stated that they live in [place] and would have to see which facility might be closer. She stated she would get back with CM regarding choice of facility. CM will continue to follow and assist with discharge planning / needs. DCP- Discharge Planning Updated by [id number]: Barbara Priest on 06/16/18 1:[address] Patient Name: TEE MEYERS Admission Status: Elective Accout number: [id number] Admission Date: 06-15-2018 : 1950 Admission Diagnosis: Attending: DUNG MELENDEZ Current LOS: 1 Anticipated DC Date: Planned Disposition: Home or Self Care Primary Insurance: MEDICARE A & B Discharge Planning Comments: CM met with spouse at bedside patient is currently on ventilator. Kirstin Meyers spouse. Plans to return home with his . Denies any discharge needs at this time. CM will continue to follow and assist as needed with discharge planning / needs. Menagerie Superintendent: Barbara Priest DCPIA - Discharge Planning Initial Assessment Updated by [id number]: Barbara Priest on 06/16/18 2:44 pm * Is the patient Alert and Oriented? Yes * How many steps to enter\exit or inside your home? * PCP Maxim Lozada * Pharm[facility] * Preadmission Environment Home with Family * ADLs Independent * Equipment Oxygen * List name and contact numbers for known caregivers / representatives who currently or will assist patient after discharge: Amando Meyers son [phone] * Verbal permission to speak to the caregivers and representatives has been obtained from the patient. N/A * Community resources currently utilized None * Additional services required to return to the preadmission environment? No * Can the patient safely return to the preadmission environment? Yes * Has this patient been hospitalized within the prior 30 days at any hospital? No Last DP export: 07/15/18 3:00 p Patient Name: TEE MEYERS Page 57858 at 1209 All edits/amendments must be made on the electronic document DICTATION DATE: 07/16/181208 SHIP MATE: LAURIE 07/16/181208 RPT#: [id number] DC DATE:07/16/18 STATUS: DIS IN [facility] [address] [place] [address] END OF REPORT
--- NOTE | 2018-07-16 14:40 | MORECARE ---
CASE MANAGEMENT DISCHARGE SUMMARY PATIENT: TEE MEYERS UNIT: [id number] ADM DATE: 06/15/18 AGE: 68 : 52 SEX: M ROOM/BED: D.2307 AUTHOR: ESTELLE,DOC PHYSICIAN: REFERRING PHYSICIAN: DUNG MELENDEZ MD DATE OF SERVICE: 07/16/18 Discharge Plan Patient Name: TEE MEYERS Facility: [facility]:[place] : 1950 Planned Disposition: Home or Self Care Anticipated Discharge Date: Discharge Date: 07/16/2018 Expected LOS: Initial Reviewer: [id number] Initial Review Date: 06/15/2018 Generated: 07/16/18 3:40 pm Comments DCP- Discharge Planning Updated by [id number]: Barbara Priest on 07/16/18 1:[address] CM CALLED AND EXPLAINED IMM NOTICE TO KIRSTIN MEYERS. SHE STATED VERBAL UNDERSTANDING 07/16/18 @ 1000 DCP- Discharge Planning Updated by [id number]: Barbara Priest on 07/15/18 2:[address] CM called [facility] and [facility] to check pricing for transfer. [facility] will bill insurance since it is medically necessary for patient to travel to [place] for LTACH since they are the closest accepting vent facility. [facility] will pick patient up for transfer @ 10am 07/16/18. Nursing to call report when ambulance picks up patient. CM notified patients ernie Fulton of arrangements and she agrees with plan. CM notified [facility] of planned time for fruit picker machine operator. CM will continue to follow and assist with discharge planning / needs. DCP- Discharge Planning Updated by [id number]: Barbara Priest on 07/15/18 2:[address] It is medically necessary for patient to travel to [place] for LTACH since they are the closest accepting vent facility. DCP- Discharge Planning Updated by [id number]: Barbara Priest on 07/15/18 1:[address] CM received call from Irving with [facility] in [place] [phone]. He stated that patient looked appropriate. He requested nursing number to ask them a few questions. Wanted to know when we wanted to transfer patient. Wanted to know if tomorrow would be alright 07/16/18. CM stated that would be fine. Irving stated he would call back shortly with definite answer. CM will continue to follow and assist as needed with discharge planning / needs. DCP- Discharge Planning Updated by [id number]: Barbara Priest on 07/15/18 10:[address] CM spoke with Irving with [facility] in [place] [phone]. [facility] stated they did have vent bed availability. CM faxed clinical packet [phone] backup fax [phone]. CM awaiting approval. CM will continue to follow and assist as needed with discharge planning / needs. DCP- Discharge Planning Updated by [id number]: Barbara Priest on 07/14/18 4:[address] Late Entry 07/12/18 @ 1300 Aurelio visited unit to check on patient told nursing and CM that there was any vent beds available but as soon as there was one she would let us know.CM will continue to monitor and assist as needed with discharge planning / needs. DCP- Discharge Planning Updated by [email or web address]: Barbara Priest on 07/14/18 2:[address] CM received call back from Shira @ [facility] in . Shira stated that patient is on list but he has 3 patients ahead of him on list. CM will speak with family and see if we can send eval to [place] or [place]. DCP- Discharge Planning Updated by [id number]: Barbara Priest on 07/14/18 2:[address] CM called and left message Aurelio / Shira with [facility] to try to find out if patient was next on list for vent bed or where we stand on bed availability. Explained that patient lives in [place] and that if it will be a while before bed availability. [facility]. CM awaiting call back from Aurelio / Shira. DCP- Discharge Planning Updated by [id number]: Barbara Priest on 07/08/18 2:[address] CM met with Aurelio with [facility] earlier today. She stated that patient seems appropriate for LTACH. She stated she would run his days/ insurance. She did state that they currently didn't have a bed available but would let us know as soon as one is available. CM will continue to follow and assist with discharge planning / needs. DCP- Discharge Planning Updated by [email or web address]: Barbara Priest on 07/08/18 9:[address] CM received a call from Aurelio from [facility] this am. Aurelio stated she would be over later to evaluate. CM will continue to follow and assist as needed with discharge planning. DCP- Discharge Planning Updated by [id number]: Barbara Priest on 07/08/18 9:[address] Late Entry 07/07/18 @ 1620 Patient decided on LTACH [facility] in [place]. CM called facility and faxed over records. CM will continue to follow and assist with discharge planning / needs DCP- Discharge Planning Updated by LEODAN: Barbara Priest on 07/07/18 11:[address] CM received notice for LTACH eval. CM spoke with patients spouse (Kirstin) and gave her a list of LTACH facilities within the [facility]. Kirstin stated that they live in [place] and would have to see which facility might be closer. She stated she would get back with CM regarding choice of facility. CM will continue to follow and assist with discharge planning / needs. DCP- Discharge Planning Updated by [id number]: Barbara Priest on 06/16/18 1:[address] Patient Name: TEE MEYERS Admission Status: Elective Accout number: [id number] Admission Date: 06-15-2018 : 1950 Admission Diagnosis: Attending: DUNG MELENDEZ Current LOS: 1 Anticipated DC Date: Planned Disposition: Home or Self Care Primary Insurance: MEDICARE A & B Discharge Planning Comments: CM met with spouse at bedside patient is currently on ventilator. Kirstin Meyers spouse. Plans to return home with his . Denies any discharge needs at this time. CM will continue to follow and assist as needed with discharge planning / needs. Floral Arranger: Barbara Priest DCPIA - Discharge Planning Initial Assessment Updated by [email or web address]: Barbara Priest on 06/16/18 2:44 pm * Is the patient Alert and Oriented? Yes * How many steps to enter\exit or inside your home? * PCP Maxim Lozada * Pharmacy [facility] * Preadmission Environment Home with Family * ADLs Independent * Equipment Oxygen * List name and contact numbers for known caregivers / representatives who currently or will assist patient after discharge: Amando Meyers son [phone] * Verbal permission to speak to the caregivers and representatives has been obtained from the patient. N/A * Community resources currently utilized None * Additional services required to return to the preadmission environment? No * Can the patient safely return to the preadmission environment? Yes * Has this patient been hospitalized within the prior 30 days at any hospital? No Coverage Notice Reviewer: [id number] Chanelle Priest Notice Issued Date-Time: 07/16/2018 10:00 Notice Type: IM Discharge Notice Notice Delivered To: Family Member Relationship to Patient: Spouse Biochemical Development Engineer Name: KIRSTIN MEYERS Delivery Method: PHONE - Phone Tasia Days: Prior Verbal Notification: Recipient Understood Notice: Yes Recipient Signature: Yes Med Rec Note Co-signed by Attending: Coverage Notice Comment: Last DP export: 07/16/18 11:09 a Patient Name: TEE MEYERS Page [id number] at 1440 All edits/amendments must be made on the electronic document DICTATION DATE: 07/16/18 1439 SHOT EXAMINER: LAURIE 07/16/18 143 RPT#: [id number] DC DATE:07/16/18 STATUS: DIS IN [facility] [address] [place] [address] END OF REPORT
[2018-07-30 11:20] LABS: FUNGUS MYCOLOGY CULTURE Final report (())
[2018-08-03 06:15] LABS: FUNGUS MYCOLOGY CULTURE Final report (())
== END 2018-07-16 11:24 | DRG 4 ==
LOC: D.ICU 02:55
PROVIDERS: Emergency Medicine; Internal Medicine Pulmonary Disease; Radiology Vascular & Interventional Radiology; Surgery; ADMIT Internal Medicine Nephrology
PROC: 5A1955Z Respiratory Ventilation, Greater than 96 Consecutive Hours (ICD-10-PCS; principal; 2018-06-15)
PROC: 05HY33Z Insertion of Infusion Device into Upper Vein, Percutaneous Approach (ICD-10-PCS; 2018-06-15)
PROC: 0BH17EZ Insertion of Endotracheal Airway into Trachea, Via Natural or Artificial Opening (ICD-10-PCS; 2018-06-15)
PROC: 0BCB8ZZ Extirpation of Matter from Left Lower Lobe Bronchus, Via Natural or Artificial Opening Endoscopic (ICD-10-PCS; 2018-06-17)
PROC: 0BC68ZZ Extirpation of Matter from Right Lower Lobe Bronchus, Via Natural or Artificial Opening Endoscopic (ICD-10-PCS; 2018-06-17)
PROC: 0B113F4 Bypass Trachea to Cutaneous with Tracheostomy Device, Percutaneous Approach (ICD-10-PCS; 2018-06-30)
PROC: 0DH63UZ Insertion of Feeding Device into Stomach, Percutaneous Approach (ICD-10-PCS; 2018-07-01)
PROC: 0B9B8ZZ Drainage of Left Lower Lobe Bronchus, Via Natural or Artificial Opening Endoscopic (ICD-10-PCS; 2018-07-01)
PROC: 0B968ZZ Drainage of Right Lower Lobe Bronchus, Via Natural or Artificial Opening Endoscopic (ICD-10-PCS; 2018-07-01)
PROC: 0BB Respiratory System, Excision (ICD-10-PCS; 2018-07-02)
PROC: 05HY33Z Insertion of Infusion Device into Upper Vein, Percutaneous Approach (ICD-10-PCS; 2018-07-12)
DX: J96.21 Acute and chronic respiratory failure with hypoxia (principal); I46.9 Cardiac arrest, cause unspecified; J18.9 Pneumonia, unspecified organism; I50.33 Acute on chronic diastolic (congestive) heart failure; E87.2 Acidosis; E44.0 Moderate protein-calorie malnutrition; J44.1 Chronic obstructive pulmonary disease with (acute) exacerbation; J44.0 Chronic obstructive pulmonary disease with (acute) lower respiratory infection; R57.9 Shock, unspecified; J98.11 Atelectasis; G72.81 Critical illness myopathy; J96.22 Acute and chronic respiratory failure with hypercapnia; R00.1 Bradycardia, unspecified; I48.91 Unspecified atrial fibrillation; I95.9 Hypotension, unspecified; K21.9 Gastro-esophageal reflux disease without esophagitis; K70.30 Alcoholic cirrhosis of liver without ascites; D64.9 Anemia, unspecified; E83.42 Hypomagnesemia; E87.6 Hypokalemia; E83.39 Other disorders of phosphorus metabolism; Z68.26 Body mass index [BMI] 26.0-26.9, adult; I11.0 Hypertensive heart disease with heart failure; B96.20 Unspecified Escherichia coli [E. coli] as the cause of diseases classified elsewhere; T17.990A Other foreign object in respiratory tract, part unspecified in causing asphyxiation, initial encounter; Z85.038 Personal history of other malignant neoplasm of large intestine; Z87.891 Personal history of nicotine dependence